=== PATIENT | female | born 1970 | race Caucasian/White ===

== ENCOUNTER 2017-04-29 22:33 | Emergency (ER) | payer OTHER, SELFPAY ==
[2017-04-29 22:43] VITALS: BP 134/81; PULSE 91; RESP 18; TEMP 36.4; O2SAT 98; BMI 33.3
--- NOTE | 2017-04-29 23:19 | CT_ITS ---
CT facial bones wo con CLINICAL INDICATION: Facial pain following injury, eye and nose pain on the left ITS.REASON: INJURY ORDERING PHYSICIAN: Charlie Watson MD PATIENT AGE: 47 years COMPARISON: None TECHNIQUE:Axial, sagittal, and coronal images are generated and reviewed without contrast COMPARISON: None FINDINGS: Bones: Unremarkable. No fracture, lytic, or blastic changes evident Extracranial soft tissues: Mild soft tissue swelling along the bridge of the nose Sinuses: Mild mucosal thickening ethmoid air cells Orbits: Unremarkable Other: No other pertinent findings IMPRESSION: No acute fracture Soft tissue swelling along the bridge of the nose
--- NOTE | 2017-04-29 23:19 | CT_ITS ---
CT head/brain wo con HISTORY: Headache, pain, head injury with contusion/abrasion ORDERING PHYSICIAN: Charlie Watson MD PATIENT AGE: 47 years COMPARISON: None TECHNIQUE: Axial images obtained without contrast. Brain and bone windows reviewed. FINDINGS: No midline shift, mass effect, intracranial hemorrhage, hydrocephalus, or extra-axial fluid collection is evident. The calvarium has an unremarkable appearance. No mastoid effusion. Mild mucosal thickening ethmoid sinuses.. IMPRESSION: No acute intracranial findings.
--- NOTE | 2017-04-29 23:19 | CT_ITS ---
CT CERVICAL SPINE WITHOUT CONTRAST CT RECONSTRUCTIONS HISTORY:Neck pain following injury ORDERING PHYSICIAN: Charlie Watson MD PATIENT AGE: 47 years PROCEDURE: Axial spiral CT scanning performed of the cervical spine beginning at the base of the skull and continuing to the upper T-spine. FINDINGS: No fracture nor subluxation is evident. Normal prevertebral soft tissues. Facets, neural foramen and vertebral bodies intact and unremarkable. Normal C1/C2 relationships. Apices of lungs are clear with no acute findings. Mild degenerative disc disease C6-C7. Faint groundglass and Reticulonodular densities noted in the upper lobes on both sides with small coalescent nodular densities in the left upper lobe 4 mm IMPRESSION:. 1. No acute fracture. 2. Faint groundglass and reticular nodular densities in the upper lobes which may be inflammatory or infectious. Dedicated chest CT may be of further value if clinically warranted
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
[2017-04-29 23:58] VITALS: BMI 33.3
== END 2017-04-30 00:06 | disposition home or self-care (01) ==
PROVIDERS: Emergency Provider Emergency Medicine; Family Provider Internal Medicine Adolescent Medicine; PCP Internal Medicine Adolescent Medicine
DX: S09.93XA Unspecified injury of face, initial encounter (principal); W22.8XXA Striking against or struck by other objects, initial encounter; F17.210 Nicotine dependence, cigarettes, uncomplicated; Z88.0 Allergy status to penicillin; Z88.6 Allergy status to analgesic agent
CPT/HCPCS: 70450; 70486; 72125; 99282

== ENCOUNTER → 2017-12-03 12:45 | Outpatient (CLI) | payer OTHER, SELFPAY ==
[2017-12-03 13:31] LABS: Basophils % 0.5 % (0.1-2.0); Eosinophils # 0.2 K/mm3 (0.0-0.4); Eosinophils % 2.7 % (0.1-12.0); Hematocrit 43.8 % (37.0-47.0); Hemoglobin 14.5 g/dL (12.2-16.2); Lymphocytes # 2.1 K/mm3 (0.7-4.5); Lymphocytes % 27.8 K/mm3 (10-50); Mean Corpuscular HGB Conc 33.1 g/dL (31.8-35.4); Mean Corpuscular Volume 90.5 fl (81-99); Mean Platelet Volume 7.9 fl (7.4-10.4); Monocytes # 0.5 K/mm3 (0.1-1.0); Monocytes % 6.5 % (1.7-9.3); Neutrophils # 4.6 K/mm3 (1.8-7.8); Neutrophils % 62.3 % (37.0-80.0); Platelet Count 326 K/mm3 (142-424); Red Blood Count 4.84 M/mm3 (4.20-5.40); Red Cell Distribution Width 12.8 % (11.5-17.5); White Blood Count 7.4 K/mm3 (4.8-10.8)
[2017-12-03 14:28] LABS: Alanine Aminotransferase 54 U/L (12-78); Albumin/Globulin Ratio 1.1 (1.1-1.8); Alkaline Phosphatase 84 U/L (46-116); Anion Gap 13.4 mEq/L (5-15); Aspartate Amino Transferase 27 U/L (15-37); Bilirubin,Total 0.3 mg/dL (0.2-1.0); Blood Urea Nitrogen 11 mg/dL (7-18); Calcium 9.2 mg/dL (8.5-10.1); Carbon Dioxide 29 mmol/L (21.0-32.0); Chloride 104 mmol/L (98-107); Estimated Glomerular Filt Rate 76 ml/min (>60); GFR (African American) 92 ML/MIN (>60); Globulin 3.6 gm/dl (1.3-3.2); Glucose 94 mg/dL (74-106); Potassium 4.4 mmoL/L (3.5-5.1); Sodium 142 mmol/L (136-145); Thyroid Stimulating Hormone 2.26 uIU/ml (0.358-3.740); Total Protein,Serum 7.6 gm/dL (6.4-8.2); Uric Acid 3.5 mg/dL (2.6-7.2)
[2017-12-03 15:17] LABS: Erythrocyte Sedimentation Rate 27 mm/hr (0-20)
[2017-12-06 05:30] LABS: RA Latex Turbid. 16.6 IU/mL (0.0-13.9)
[2017-12-06 15:22] LABS: Anti-Jo-1 <0.2 AI (0.0-0.9); Anti-Smith Antibody <0.2 AI (0.0-0.9); Antichromatin Antibodies <0.2 AI (0.0-0.9); Antiscleroderma-70 Antibodies <0.2 AI (0.0-0.9); RNP Antibodies <0.2 AI (0.0-0.9); Sjogren's Anti-SS-A <0.2 AI (0.0-0.9); Sjogren's Anti-SS-B <0.2 AI (0.0-0.9)
[2017-12-07 16:03] LABS: Anti-Centromere B Antibodies <0.2 AI (0.0-0.9); Anti-Cyclic Citrullinated Pept 13 units (0-19); Anti-DNA (DS) Ab Qn <1 IU/mL (0-9)
== END ==
PROVIDERS: Visit Provider Nurse Practitioner Family
DX: M25.542 Pain in joints of left hand (principal); M25.541 Pain in joints of right hand
CPT/HCPCS: 36415; 80053; 84443; 84550; 85025; 85651; 86200; 86225; 86235; 86431

== ENCOUNTER 2019-06-14 23:42 | Observation (INO) ==
[2019-06-14 23:57] LABS: Basophils # 0.1 K/mm3 (0-0.2); Basophils % 0.7 % (0.1-2.0); Eosinophils # 0.1 K/mm3 (0.0-0.4); Eosinophils % 1.9 % (0.1-12.0); Hematocrit 43.7 % (37.0-47.0); Lymphocytes # 2.8 K/mm3 (0.7-4.5); Lymphocytes % 37.1 % (10-50); Mean Corpuscular Volume 94.7 fl (81-99); Mean Platelet Volume 7.9 fl (7.4-10.4); Monocytes # 0.3 K/mm3 (0.1-1.0); Monocytes % 4.4 % (1.7-9.3); Neutrophils # 4.2 K/mm3 (1.8-7.8); Neutrophils % 55.9 % (37.0-80.0); Platelet Count 323 K/mm3 (142-424); Red Blood Count 4.62 M/mm3 (4.20-5.40); Red Cell Distribution Width 13.5 % (11.5-17.5); White Blood Count 7.6 K/mm3 (4.8-10.8)
[2019-06-15 00:04] LABS: Anion Gap 11.5 mEq/L (5-15); Calcium 9.7 mg/dl (8.4-10.2)
--- NOTE | 2019-06-15 00:37 | Emergency Department Note ---
ED Disposition Clinical Impression: Obesity (BMI 30-39.9), Tobacco use Chest pain Qualifiers: Chest pain type: precordial pain Qualified Code(s): R07.2 - Precordial pain Disposition: Admitted as Observation Condition on Discharge: Good - Critical Care Critical Care Time: No Attestation: On 06/14/19, the high probability of a clinically significant, sudden or life threatening deterioration of the following system(s) required my full and direct attention, intervention and personal management. The time I documented below is in addition to time spent performing reported procedures but includes the following listed in this critical care notation. Medical Decision Making - Medical Records Medical records reviewed: Yes: I reviewed the patient's medical records. - Erik Inquiry Pt receiving controlled substance: No Vital Signs: 06/14/19 23:42 Temperature 98.6 F Temperature Source Oral Pulse Rate [Left Radial] 96 H Respiratory Rate 16 Blood Pressure [Right Arm] 148/90 H Blood Pressure Mean [Right Arm] 109 Blood Pressure Source [Right Arm] Automatic Cuff Blood Pressure Position [Right Arm] Sitting 02 Sat by Pulse Oximetry 98 Oxygen Delivery Method Room Air - Lab Data Lab results reviewed: Yes: I reviewed the patient's lab results. Lab Results 06/14/19 23:35: WBC 7.6, RBC 4.62, Hgb 14.0, Hct 43.7, MCV 94.7, MCH 30.3, MCHC 32.0, RDW 13.5, Plt Count 323, MPV 7.9, Neut % (Auto) 55.9, Lymph % (Auto) 37.1, Sab[place] % (Auto) 4.4, Eos % (Auto) 1.9, Baso % (Auto) 0.7, Neut # (Auto) 4.2, Lymph # (Auto) 2.8, Sab[place] # (Auto) 0.3, Eos # (Auto) 0.1, Baso # (Auto) 0.1 06/14/19 23:35: Sodium 143, Potassium 3.5, Chloride 103, Carbon Dioxide 32 H, Anion Gap 11.5, BUN 10, Creatinine 0.80, Estimated Creat Clear 113, Estimated GFR 76, Est GFR ( Amer) 92, Glucose 99, Calcium 9.7 06/14/19 23:35: Troponin I < 0.01 Result diagrams: 06/14/19 23:35 06/14/19 23:35 Orders (Tests/Meds): ED MEDICATIONS Generic Name Dose Route Start Last Admin Trade Name Freq PRN Reason Stop Dose Admin Sodium Chloride 1,000 mls @ 999 mls/hr 06/14/19 23:45 06/15/19 00:11 Sod Chlor 0.9% 1000ml Bag IV 06/15/19 00:45 999 mls/hr .Q1H1M ELIZABETH Administration Discontinued Medications Generic Name Dose Route Start Last Admin Trade Name Freq PRN Reason Stop Dose Admin Aspirin 324 mg 06/14/19 23:51 06/15/19 00:11 Aspirin 81mg Chewable Tablet PO 06/14/19 23:52 324 mg ONCE ONE Administration Nitroglycerin 1 gm 06/14/19 23:51 06/15/19 00:11 Nitroglycerin 1 Inch Oint Udp TD 06/14/19 23:52 1 gm ONCE ONE Administration ORDERS Category Date Time Status XR chest 2V Stat Exams 06/14/19 23:51 Ordered - Radiology Data #1 Image(s): Chest Image Reviewed: Yes I reviewed the patient's radiology image Preliminary Findings: Normal/NAD - ECG Data Tracing #1 Normal Sinus Rhythm: Yes Ischemic changes: non-specific ST-T wave changes Chest Pain HPI - General Chief Complaint: Chest Pain Stated Complaint: chest pain Time Seen by Provider: 06/14/19 23:50 Mode of Arrival: Ambulatory Source of Information: Patient, Significant Other, Medical Record Limitations: No Limitations Description of Symptoms (Recalled from ER Triage Doc. by RN): pt stated she started having palpitations at work today around 10pm. pt stated she feels a pressure and tightness in her epigastric area rating a 5 at this time. - History of Present Illness HPI narrative: 30 min episode of ant chest tightness - new onset - has had feeling of palpitation earlier - pt with no known ht dis MD complaint: chest pain indicative of cardiac Onset (ago): hour(s) Duration: now resolved Activity at onset: during rest Pain location: substernal Severity: moderate Quality: tightness Risk Factors for CAD: Hypertension, Family Hx of CAD, Smoking Treatments prior to or on arrival for Cardiac Chest Pain: none - NICOLÁS Score for Non-Stemi Age of Patient: 50-59 years old Heart Rate: 90-109 bpm Systolic Blood Pressure: 140-159 mmHg Serum Creatinine: 0.80-1.19 mg/dl CHF [place] Class: I-No CHF Other Risk Factors: None Non-Stemi Risk Score: 87 - Related Data On Oral Contraceptives: No Home Medications Medication Instructions Recorded Confirmed Omeprazole [Omeprazole 40mg 40 mg PO DAILY 04/29/17 06/30/18 Capsule] hydroxychloroquine 200 mg tablet 200 mg PO BID tab 06/30/18 prednisone 5 mg tablet 5 mg PO DAILY 06/30/18 Allergies Allergy/AdvReac Type Severity Reaction Status Date / Time morphine [MORPHINE] Allergy Severe S-SWELLS-OR Verified 06/30/18 17:51 AL/THROAT Penicillins [PENICILLINS] Allergy Intermediate I-RASH Verified 06/30/18 17:51 [facility] History - Hepatitis A Screen Drug use history?: No High risk sexual behaviors?: No History of sexually transmitted infection?: No Currently employed?: No Childcare worker?: No Do you have indoor plumbing?: Yes Do you have electricity?: Yes Attestation statement:: This patient has been screened for Hepatitis A risk factors. I have reviewed the patient's past medical history: Yes Medical History: Reports:: Anxiety Other Surgeries: Yes: Hysterectomy-Partial Amputation: No Fractures: No Comment: rotator cuff tear 2010 - Social History Smoking Status: Current every day smoker Tobacco Type: cigarettes # Packs/Day (cigarettes): 1 Alcohol Intake: never Occupational Status: employed - Psychiatric History Pschychiatric History:: Reports:: Anxiety Family Hx:: Cancer Comment: COPD ROS Obtained: Yes All systems reviewed & no additional complaints - Constitutional Constitutional: Denies fever(s) - Eyes Eyes: Denies change in vision - ENT Ears, Nose, Mouth, and Throat: Denies sore throat - Cardiovascular Cardiovascular: Reports chest pain, Denies dyspnea, Denies radiating jaw, neck or arm pain - Respiratory Respiratory: No cough - Gastrointestinal Gastrointestingal: Denies: abdominal pain - Genitourinary Female Genitourinary: Denies hematuria - Musculoskeletal Musculoskeletal: Denies joint pain, Denies joint swelling - Integumentary/Breasts Skin/Breast: Denies rash - Neurologic Neurologic: Denies dizziness, Denies seizure-like activity Physical Exam - General General appearance: alert - Head Head exam: normocephalic - Eye Eye exam: Present: PERRL, EOMI - ENT ENT exam: Present: mucous membranes moist - Neck Neck exam: Present: trachea midline - Respiratory Respiratory exam: Present: normal lung sounds bilaterally. Absent: respiratory distress - Cardiovascular Cardiovascular exam: Present: regular rate. Absent: systolic murmur - Abdominal Exam Abdominal exam: Present: soft. Absent: tenderness - Extremities Exam Extremities exam: Present: full ROM - Neurological Exam Neurological exam: Present: alert, oriented X3, CN II-XII intact - Psychiatric Psychiatric exam: Present: normal affect - Skin Skin exam: Absent: rash
[2019-06-15 06:46] LABS: Basophils % 0.5 % (0.1-2.0); Eosinophils # 0.2 K/mm3 (0.0-0.4); Eosinophils % 2.6 % (0.1-12.0); Hematocrit 38.8 % (37.0-47.0); Hemoglobin 12.6 g/dL (12.2-16.2); Lymphocytes # 2.5 K/mm3 (0.7-4.5); Lymphocytes % 36.9 % (10-50); Mean Corpuscular HGB Conc 32.5 g/dL (31.8-35.4); Mean Corpuscular Volume 95.8 fl (81-99); Mean Platelet Volume 8.1 fl (7.4-10.4); Monocytes # 0.4 K/mm3 (0.1-1.0); Monocytes % 5.6 % (1.7-9.3); Neutrophils # 3.6 K/mm3 (1.8-7.8); Neutrophils % 54.3 % (37.0-80.0); Platelet Count 298 K/mm3 (142-424); Red Blood Count 4.05 M/mm3 (4.20-5.40); Red Cell Distribution Width 13.5 % (11.5-17.5); White Blood Count 6.7 K/mm3 (4.8-10.8)
[2019-06-15 06:50] LABS: Anion Gap 9.8 mEq/L (5-15); Calcium 8.9 mg/dl (8.4-10.2)
[2019-06-15 06:51] LABS: Chol/HDL Ratio 3.6 (1-3.5)
--- NOTE | 2019-06-15 07:14 | Pharmacy Consult Notes ---
[facility] Pharmacy VTE Monitoring - Patient Demographics Admission date: 06/15/19 Report Date: 06/15/19 Time: 07:13 Allergies/Adverse Reactions: Patient Allergies morphine [MORPHINE] Allergy (Severe, Verified 06/15/19 02:03) orbital edema Penicillins [PENICILLINS] Allergy (Intermediate, Verified 06/30/18 17:51) I-RASH Height: 1.5 m Weight: 85.502 kg Patient Problems: Current Active Problems Chest pain (Acute) Obesity (BMI 30-39.9) (Acute) Tobacco use (Acute) - VTE Risk Labs: VTE Related Lab Results Hgb 12.6 g/dL (12.2-16.2) 06/15/19 06:25 Hct 38.8 % (37.0-47.0) 06/15/19 06:25 Plt Count 298 K/mm3 (142-424) 06/15/19 06:25 BUN 11 mg/dl (7-17) 06/15/19 06:25 Creatinine 0.70 mg/dl (0.52-1.04) 06/15/19 06:25 Estimated Creat Clear 128 mL/min (50-200) 06/15/19 06:25 Was VTE Risk Assessment Performed: Yes VTE Score: 6 VTE Risk Level: Moderate Risk - Prophylaxis VTE Prophylaxis Ordered?: Yes Types of VTE Prophylaxis: TEDS Knee High Location of Applied Device: Bilateral Lower Extremeties
--- NOTE | 2019-06-15 07:44 | Consult Report ---
History of Present Illness Consult date: 06/15/19 Consult reason: chest pain Chief complaint: chest pain, palpitations Additional Medical History:: 1. History of rheumatoid arthritis, treated for about 2 years with methotrexate 2. Tobacco use since age 15 and 1 pack/day 3. Chest pain, palpitations, 05/2019 History of present illness: 49-year-old white female with onset of substernal to epigastric chest discomfort with associated palpitations while at work last evening. Symptoms persisted to the point that the patient came to the ER for further evaluation. She denies any recent fever, chills, nausea, vomiting or diarrhea. No prior history of coronary artery disease. She is a smoker but is not on medication for diabetes, hypertension or hyperlipidemia. EKG in the ER showed sinus rhythm with no acute ST segment changes. Troponins overnight have been normal x3. Preliminary echocardiogram this morning shows preserved ejection fraction. Patient has a history of rheumatoid arthritis that has been treated for about 2 years. She also has a history of bright red blood per rectum for which she takes omeprazole for GI discomfort with prior colonoscopy negative. Last episode of bright red blood per rectum was in the last week. [facility] History Medical History: Reports:: Anxiety, Cancer (Skin) Denies:: Diabetes Mellitus Type 1, Diabetes Mellitus Type 2 *Have you ever received a pneumonia vaccine?: No *Have you received a flu vaccine this season?: No Other Medical History: Reports: Arthritis Other Surgeries: Yes: Cholecystectomy, Colonoscopy, (x1), EGD, Hysterectomy-Partial, Skin Cancer Excision (x2), Other (Right rotator cuff repair) Amputation: No Fractures: No - *Social History Educational Level: Completed High School Smoking Status: Current every day smoker Tobacco Type: cigarettes # Packs/Day (cigarettes): 1 Alcohol Intake: never *Occupational Status:: employed Housing: house Household Members: children *Travel in the last 8 weeks: None - Psychiatric History Pschychiatric History:: Reports:: Anxiety Family Hx:: Asthma, Cancer, Diabetes, Hypertension, Substance abuse Meds Home Medications Medication Instructions Recorded Confirmed Type Omeprazole [Omeprazole 40mg 40 mg PO DAILY 04/29/17 06/15/19 History Capsule] ALPRAZolam [Xanax 0.5mg tab] 0.5 mg PO DAILYP PRN 06/15/19 06/15/19 History Folic Acid 1 mg PO DAILY 06/15/19 06/15/19 History metHOTREXate sodium [metHOTREXate 20 mg PO WEEKLY 06/15/19 06/15/19 History 2.5mg Tablet] Allergies Allergy/AdvReac Type Severity Reaction Status Date / Time morphine [MORPHINE] Allergy Severe orbital Verified 06/15/19 02:03 edema Penicillins [PENICILLINS] Allergy Intermediate I-RASH Verified 06/30/18 17:51 Review of Systems - Review of Systems Review of systems:: pertinent systems reviewed and negative unless documented below - *Cardiovascular Reports chest pain, Reports rapid, pounding, or irregular heartbeat - *Respiratory Denies cough, Denies shortness of breath - *Gastrointestinal Reports abdominal pain, Denies nausea, Denies vomiting - *Genitourinary Denies blood in urine - *Musculoskeletal Reports joint pain, Denies back pain - *Neurologic Denies dizziness, Denies seizure-like activity Exam Vital signs and Labs for Last 24 Hours: Temp Pulse Resp BP Pulse Ox 97.9 F 92 H 18 94/56 L 97 06/15/19 04:00 06/15/19 04:00 06/15/19 04:00 06/15/19 04:00 06/15/19 04:00 Laboratory Results - last 24 hr 06/14/19 23:35: WBC 7.6, RBC 4.62, Hgb 14.0, Hct 43.7, MCV 94.7, MCH 30.3, MCHC 32.0, RDW 13.5, Plt Count 323, MPV 7.9, Neut % (Auto) 55.9, Lymph % (Auto) 37.1, [place]ccone % (Auto) 4.4, Eos % (Auto) 1.9, Baso % (Auto) 0.7, Neut # (Auto) 4.2, Lymph # (Auto) 2.8, [place]one # (Auto) 0.3, Eos # (Auto) 0.1, Baso # (Auto) 0.1 06/14/19 23:35: Sodium 143, Potassium 3.5, Chloride 103, Carbon Dioxide 32 H, Anion Gap 11.5, BUN 10, Creatinine 0.80, Estimated Creat Clear 113, Estimated GF R 76, Est GFR ( Amer) 92, Glucose 99, Calcium 9.7 06/14/19 23:35: Troponin I < 0.01 06/15/19 03:15: Troponin I < 0.01 06/15/19 06:25: Troponin I < 0.01 06/15/19 06:25: WBC 6.7, RBC 4.05 L, Hgb 12.6, Hct 38.8, MCV 95.8, MCH 31.1, MCHC 32.5, RDW 13.5, Plt Count 298, MPV 8.1, Neut % (Auto) 54.3, Lymph % (Auto) 36.9, Mccone % (Auto) 5.6, Eos % (Auto) 2.6, Baso % (Auto) 0.5, Neut # (Auto) 3.6, Lymph # (Auto) 2.5, [place]one # (Auto) 0.4, Eos # (Auto) 0.2, Baso # (Auto) 0.0 06/15/19 06:25: Sodium 141, Potassium 3.8, Chloride 106, Carbon Dioxide 29, Anion Gap 9.8, BUN 11, Creatinine 0.70, Estimated Creat Clear 128, Estimated GFR 88, Est GFR ( Amer) 107, Glucose 104 H, Calcium 8.9, Magnesium 2.0, Triglycerides 104, Cholesterol 126 L, LDL Cholesterol Direct 83.59 L, VLDL Cholesterol 21, HDL Cholesterol 35 L, Cholesterol/HDL Ratio 3.6 H I & O for Last 24 hours: Intake & Output 06/12/19 06/13/19 06/14/19 06/15/19 11:59 11:59 11:59 11:59 Output Total 400 / 400 Balance -400 / -400 Weight 188 lb 8 oz - *Routine Neck Exam Present: supple. Absent: JVD, carotid bruit - *Routine Respiratory Exam Present: CTA bilaterally. Absent: accessory muscle use, rales, rhonchi, wheezes - *Routine Cardiovascular Exam Present: RRR. Absent: murmur, gallop, rubs - *Routine Abdominal Exam Present: soft. Absent: tenderness, distended, guarding - *Routine Extremities Exam Absent: edema, calf tenderness - *Routine Neurological Exam Present: alert, oriented X3, moving all extremities Assessment and Plan (1) Chest pain Current visit: Yes Status: Acute Qualifiers: Chest pain type: precordial pain Qualified Code(s): R07.2 - Precordial pain Category: Medical Code(s): R07.9 - Chest pain, unspecified (2) Tobacco use Current visit: Yes Status: Acute Category: Social Hx Code(s): Z72.0 - Tobacco use - Assessment and plan all Dx Assessment and Plan for all problems:: 1. Chest pain with palpitations. Normal EKG and troponins x3 with preliminary echocardiogram showed preserved ejection fraction. Recommend proceeding with exercise echocardiogram study. If normal then patient can be discharged home later today. 2. History of Abdominal pain with BRBPR. Plans to have colonoscopy in near future. 3. Rheumatoid Arthritis, on methotrexate 4. Tobacco use, cessation recommended.
--- NOTE | 2019-06-15 08:06 | H&P/Discharge Summary ---
General - General Admission date:: 06/15/19 Discharge date: 06/15/19 *Admission Date: 06/15/19 *Chief complaint: Chest pain, palpitations *History of present illness: Ms. Moreno is a pleasant, obese 49-year-old white female who presented to the ER yesterday due to substernal/epigastric chest discomfort with associated palpitations while at work last evening. He states the symptoms began while she was on her way to work, she waited in her car for about 30 minutes and persisted to have fluttering sensation versus palpitations and significant lower substernal pain. This morning she denies any syncope, nausea, vomiting, referred pain to arm or neck. No history of hypertension. Is on medication for RA (methotrexate). Also takes omeprazole daily for reflux symptoms. Has not had symptoms in quite some time is unsure if these symptoms are similar to her past GERD symptoms. She denies any recent fever, chills, nausea, vomiting or diarrhea. No prior history of coronary artery disease. She is a smoker but is not on medication for diabetes, hypertension or hyperlipidemia. EKG in the ER showed sinus rhythm with no acute ST segment changes. Troponins overnight have been normal x3. Preliminary echocardiogram this morning shows preserved ejection fraction. Patient has a history of rheumatoid arthritis that has been treated for about 2 years. She also has a history of bright red blood per rectum for which she takes omeprazole for GI discomfort with prior colonoscopy negative. Last episode of bright red blood per rectum was in the last week. She was admitted to medicine for further management. Cardiology was consulted, please see their note for recommendations. [facility] History I have reviewed the patient's past medical history: Yes Medical History: Reports:: Anxiety, Cancer (Skin) Denies:: Diabetes Mellitus Type 1, Diabetes Mellitus Type 2 *Have you ever received a pneumonia vaccine?: No *Have you received a flu vaccine this season?: No Other Medical History: Reports: Arthritis Other Surgeries: Yes: Cholecystectomy, Colonoscopy, (x1), EGD, Hysterectomy-Partial, Skin Cancer Excision (x2), Other (Right rotator cuff repair) Amputation: No Fractures: No - *Social History Educational Level: Completed High School Smoking Status: Current every day smoker Tobacco Type: cigarettes # Packs/Day (cigarettes): 1 Alcohol Intake: never *Occupational Status:: employed Housing: house Household Members: children *Travel in the last 8 weeks: None - Psychiatric History Pschychiatric History:: Reports:: Anxiety Family Hx:: Asthma, Cancer, Diabetes, Hypertension, Substance abuse Review of Systems - Review of Systems Review of systems:: pertinent systems reviewed and negative unless documented below (14 point review of systems performed, pertinent negatives and positives per HPI) - *Neurologic Denies dizziness, Denies seizure-like activity Exam Vital signs and Labs for Last 24 Hours: Temp Pulse Resp BP Pulse Ox 97.9 F 92 H 18 94/56 L 97 06/15/19 04:00 06/15/19 04:00 06/15/19 04:00 06/15/19 04:00 06/15/19 04:00 Laboratory Results - last 24 hr 06/14/19 23:35: WBC 7.6, RBC 4.62, Hgb 14.0, Hct 43.7, MCV 94.7, MCH 30.3, MCHC 32.0, RDW 13.5, Plt Count 323, MPV 7.9, Neut % (Auto) 55.9, Lymph % (Auto) 37.1, Wallace % (Auto) 4.4, Eos % (Auto) 1.9, Baso % (Auto) 0.7, Neut # (Auto) 4.2, Lymph # (Auto) 2.8, Wallace # (Auto) 0.3, Eos # (Auto) 0.1, Baso # (Auto) 0.1 06/14/19 23:35: Sodium 143, Potassium 3.5, Chloride 103, Carbon Dioxide 32 H, Anion Gap 11.5, BUN 10, Creatinine 0.80, Estimated Creat Clear 113, Estimated GFR 76, Est GFR ( Amer) 92, Glucose 99, Calcium 9.7 06/14/19 23:35: Troponin I < 0.01 06/15/19 03:15: Troponin I < 0.01 06/15/19 06:25: Troponin I < 0.01 06/15/19 06:25: WBC 6.7, RBC 4.05 L, Hgb 12.6, Hct 38.8, MCV 95.8, MCH 31.1, MCHC 32.5, RDW 13.5, Plt Count 298, MPV 8.1, Neut % (Auto) 54.3, Lymph % (Auto) 36.9, Wallace % (Auto) 5.6, Eos % (Auto) 2.6, Baso % (Auto) 0.5, Neut # (Auto) 3.6, Lymph # (Auto) 2.5, Wallace # (Auto) 0.4, Eos # (Auto) 0.2, Baso # (Auto) 0.0 06/15/19 06:25: Sodium 141, Potassium 3.8, Chloride 106, Carbon Dioxide 29, Anion Gap 9.8, BUN 11, Creatinine 0.70, Estimated Creat Clear 128, Estimated GFR 88, Est GFR ( Amer) 107, Glucose 104 H, Calcium 8.9, Magnesium 2.0, Triglycerides 104, Cholesterol 126 L, LDL Cholesterol Direct 83.59 L, VLDL Cholesterol 21, HDL Cholesterol 35 L, Cholesterol/HDL Ratio 3.6 H I & O for Last 24 hours: Intake & Output 06/12/19 06/13/19 06/14/19 06/15/19 23:59 23:59 23:59 23:59 Output Total 400 / 400 Balance -400 / -400 Weight 86.183 kg 85.502 kg - Constitutional no acute distress, obese - *Routine HEENT Exam Head: Present: normocephalic Eye: Present: EOMI, PERRL ENT: Present: mucous membranes moist - *Routine Neck Exam Present: supple. Absent: lymphadenopathy - *Routine Respiratory Exam Present: CTA bilaterally - *Routine Cardiovascular Exam Present: RRR - *Routine Abdominal Exam Present: soft, normoactive bowel sounds. Absent: tenderness - *Routine Extremities Exam Absent: cyanosis, clubbing, edema - *Routine Skin Exam Present: warm. Absent: rash - *Routine Neurological Exam Present: alert, oriented X3 Hospital Course Hospital Course: Admitted overnight with serial troponins. EKG with no ST elevation or inversions. Monitored on telemetry with no further events. On assessment this morning patient is feeling quite well with resolution of her discomfort. Vincent blanca saw her and recommended a stress test however given her rheumatoid arthritis, she is unable to perform a exercise stress test. Needs to have a chemical stress test which will have to take place in the outpatient setting. She has remained hemodynamically stable, afebrile, with improvement in her symptoms and no cardiac events, she is medically stable for discharge home. We will increase her GI prophylactic regimen with the addition of sucralfate. I have concern that her symptoms may be related to gastritis. We will set her up for an EGD and colonoscopy in the outpatient setting. Plan for close follow-up in our clinic. Results Labs on day of discharge: Labs from last 24 hours 06/15/19 06/15/19 06/15/19 06:25 06:25 06:25 WBC 6.7 RBC 4.05 L Hgb 12.6 Hct 38.8 MCV 95.8 MCH 31.1 MCHC 32.5 RDW 13.5 Plt Count 298 MPV 8.1 Neut % (Auto) 54.3 Lymph % (Auto) 36.9 Wallace % (Auto) 5.6 Eos % (Auto) 2.6 Baso % (Auto) 0.5 Neut # (Auto) 3.6 Lymph # (Auto) 2.5 Wallace # (Auto) 0.4 Eos # (Auto) 0.2 Baso # (Auto) 0.0 Sodium 141 Potassium 3.8 Chloride 106 Carbon Dioxide 29 Anion Gap 9.8 BUN 11 Creatinine 0.70 Estimated Creat Clear 128 Estimated GFR 88 Est GFR ( Amer) 107 Glucose 104 H Calcium 8.9 Magnesium 2.0 Troponin I < 0.01 Triglycerides 104 Cholesterol 126 L LDL Cholesterol Direct 83.59 L VLDL Cholesterol 21 HDL Cholesterol 35 L Cholesterol/HDL Ratio 3.6 H 06/15/19 06/14/19 06/14/19 03:15 23:35 23:35 WBC RBC Hgb Hct MCV MCH MCHC RDW Plt Count MPV Neut % (Auto) Lymph % (Auto) Wallace % (Auto) Eos % (Auto) Baso % (Auto) Neut # (Auto) Lymph # (Auto) Wallace # (Auto) Eos # (Auto) Baso # (Auto) Sodium 143 Potassium 3.5 Chloride 103 Carbon Dioxide 32 H Anion Gap 11.5 BUN 10 Creatinine 0.80 Estimated Creat Clear 113 Estimated GFR 76 Est GFR ( Amer) 92 Glucose 99 Calcium 9.7 Magnesium Troponin I < 0.01 < 0.01 Triglycerides Cholesterol LDL Cholesterol Direct VLDL Cholesterol HDL Cholesterol Cholesterol/HDL Ratio 06/14/19 23:35 WBC 7.6 RBC 4.62 Hgb 14.0 Hct 43.7 MCV 94.7 MCH 30.3 MCHC 32.0 RDW 13.5 Plt Count 323 MPV 7.9 Neut % (Auto) 55.9 Lymph % (Auto) 37.1 Wallace % (Auto) 4.4 Eos % (Auto) 1.9 Baso % (Auto) 0.7 Neut # (Auto) 4.2 Lymph # (Auto) 2.8 Wallace # (Auto) 0.3 Eos # (Auto) 0.1 Baso # (Auto) 0.1 Sodium Potassium Chloride Carbon Dioxide Anion Gap BUN Creatinine Estimated Creat Clear Estimated GFR Est GFR ( Amer) Glucose Calcium Magnesium Troponin I Triglycerides Cholesterol LDL Cholesterol Direct VLDL Cholesterol HDL Cholesterol Cholesterol/HDL Ratio DS: Diagnosis - Discharge Diagnosis (1) Chest pain Status: Acute (2) Tobacco use Status: Acute (3) GERD (gastroesophageal reflux disease) Status: Chronic (4) Obesity (BMI 30-39.9) Status: Chronic Discharge Plan - Patient Discharge Instructions Patient Instructions: DI for Chest Pain - Follow up Plan Follow up with: Brice Martinez MD [Primary Care Provider] - Disposition: Home, Self-Long-Term Medications: Home Medications Medication Instructions Recorded Confirmed Type Omeprazole [Omeprazole 40mg 40 mg PO DAILY 04/29/17 06/15/19 History Capsule] ALPRAZolam [Xanax 0.5mg tab] 0.5 mg PO DAILYP PRN 06/15/19 06/15/19 History Folic Acid 1 mg PO DAILY 06/15/19 06/15/19 History Sucralfate [Carafate 1gm Tab] 1 gm PO ACHS 30 Days #120 tab 06/15/19 Rx metHOTREXate sodium [metHOTREXate 20 mg PO WEEKLY 06/15/19 06/15/19 History 2.5mg Tablet] Prescriptions/Medication Reconciliation: New Sucralfate [Carafate 1gm Tab] 1 gm PO ACHS 30 Days #120 tab Continued Omeprazole [Omeprazole 40mg Capsule] 40 mg PO DAILY metHOTREXate sodium [metHOTREXate 2.5mg Tablet] 20 mg PO WEEKLY Folic Acid 1 mg PO DAILY ALPRAZolam [Xanax 0.5mg tab] 0.5 mg PO DAILYP PRN PRN Reason: Anxiety - Problem Reconciliation Problems Reviewed?: Yes
--- NOTE | 2019-06-15 13:27 | Electrocardiograph Report ---
APPROVED REPORT Exam: Resting ECG HR:90 bpm ECG Measurements Heart Rate 90 AXES SC 120 P 69 QRSd 82 QRS 41 QT 352 T35 QTc 430 <Conclusion> Normal sinus rhythm Normal ECG Electronically signed by : Constantin Martinez, 06/15/2019 13:27:15
--- NOTE | 2019-06-15 16:31 | Cardiology Report ---
APPROVED REPORT EXAM: Comprehensive 2D, Doppler, and color-flow Echocardiogram Farmworker Dairy: Erica Beltre CRT Ht: 4 ft 11 in Wt: 190lbs BSA: 1.80 BP: 140/90 mmHg Indications: Chest Pain, Obesity, Palpitations, Hypertension/HDD, smoker 2D Dimensions LVOT 1.93 cm (M/F) 1.5-2.5 M-Mode Dimensions RVDd 1.81 cm (0.9-2.6)LVDd 3.62 cm (3.5-5.7) LVDs 2.15 cm (3.5-5.7)IVSd 1.44 cm (0.6-1.1) PWd 1.31 cm (0.6-1.1)EF (Teich) 72.30% FS 40.60% EDV (Teich) 55.20 mL ESV (Teich) 15.30 mL LV Diastology E/A Ratio 0.81 Mitral Valve MV A Velocity 72.00 (40-130 cm/s) Left Ventricle Left atrium is mildly enlarged, left ventricle is normal size, mild concentric left ventricular hypertrophy, visually estimated ejection fraction 55% with no regional wall motion abnormality, grade 1 diastolic dysfunction seen without tissue Doppler evidence of raise left atrial pressure. Right Ventricle Right atrium and right ventricular normal size and contractility. Aortic Valve Aortic valve is minimally thickened and fibrosed, there is no aortic stenosis aortic insufficiency. Mitral Valve Mitral valve is grossly normal, there is no mitral stenosis, there is mild mitral regurgitation. Tricuspid Valve Tricuspid valve is grossly normal, there is mild tricuspid regurgitation. Tricuspid regurgitation jet velocity is inadequate for calculation of the right ventricular systolic pressure. Pulmonic Valve Pulmonic valve is poorly visualized. Great Vessels Aortic root is normal size. Pericardium No significant pericardial effusion noted Conclusion 1. Mildly enlarged left atrium, normal left ventricular size, mild concentric left ventricular hypertrophy, visually estimated ejection fraction 55% with no regional wall motion abnormality, grade 1 diastolic dysfunction without tissue Doppler evidence of raise left atrial pressure. 2. Mild mitral and tricuspid regurgitation. 3. No significant pericardial effusion noted. Electronically signed by : Hayder Weems, 06/15/2019 16:09:23
== END 2019-06-15 12:10 | disposition home or self-care (01) ==
LOC: 2ND 23:42 → ER 23:42 → 2ND 06-15 01:39
PROVIDERS: ADMIT Emergency Medicine; ATTEND Internal Medicine Adolescent Medicine
CPT/HCPCS: 36415; 71020; 71046; 80048; 80061; 83735; 84484; 85025; 93005; 93306; 93350; 96365; 99284; G0378

== ENCOUNTER → 2019-07-07 06:52 | Outpatient (CLI) | payer BC, SELFPAY ==
--- NOTE | 2019-07-07 | CA_ITS ---
APPROVED REPORT Exam: Exercise Treadmill Technologist: Rama Chambers, Ht: 4 ft 11 in Wt: 187 lbs BSA: 1.79 m2 HR: 73 bpm BP: 142/71 mmHg Indications: Chest pain Medical History Medical History: HTN Cardiac Risk Factors: HTN, Smoking Stress Test Details Test: LEXISCAN HR Resting HR: 84 bpm Max Heart Rate (APMHR): 169 bpm Max HR Achieved: 131 bpm Target HR (85% APMHR): 143 bpm % of APMHR: 77 BP Resting BP: 142/71 mmHg Max BP: 149/64 mmHg ECG Clinical Exercise duration: 04:00 min Highest Stage Achieved: Exercise capacity: 1.0 METs Stress ECG Conclusion PT c/o shortness of breath @ pk infusion , no CP noted / occ PVC / Less than 1.5mm ST Dep. / Images to follow Test Summary REST . . . . . . . Resting REST 06:03 . . 84 . 142/ 71 . . Stage 1 01:00 . . 126 . . . . Stage 2 01:00 . . 126 . 137/ 80 . . Stage 3 01:00 . . 120 . 132/ 72 . . Stage 4 01:00 . . 112 . 149/ 64 . Stop exercise at 04:00 RECOVERY 01:00 . . 109 . . . . RECOVERY 02:00 . . 110 . 132/ 70 . . RECOVERY 03:00 . . 106 . 132/ 70 . . RECOVERY 03:58 . . 106 . 132/ 70 . . Electronically signed by : Cassius Jefferson, 07/10/2019 09:39:01
--- NOTE | 2019-07-07 06:53 | NM_ITS ---
APPROVED REPORT Exam: Nuclear Stress Test Indication: TOB USE, C.P., SOB, PALPITATIONS, Patient Location: Outpatient Stress Tech: Rama Chambers PR Tech:Jordyn ElderLOS RT (R)(N)(M) Ht: 4 ft 11 in Wt: 187 lbs Bra Size: 42DD HR: 63 bpm BP: 121/70 mmHg BSA: 1.79 m2 BMI: 37.7 History: TOB USE, C.P., SOB, PALPITATIONS, Procedure: Patient received a 0.4 mg of intravenous Lexiscan, resting heart rate 63 bpm, resting blood pressure 121/70 mmHg, with Lexiscan maximum heart rate achived was 134 bpm which is % of the maximum predicted heart rate and blood pressure was 160/80 mmHg. With Lexiscan, patient denied any complaint of chest pain. Cardiac Stress and Resting SPECT Images: Cardiac Stress and Resting SPECT images were obtained using technetium 99m Myoview 29.8 mCi stress and 10.94 mCi at rest. EF 66% No fixed or reversible defects Conclusion: Negative exam EF 66% Electronically signed by : Lester Torres MD 07/07/2019 13:35:19
== END ==
PROVIDERS: PCP Internal Medicine Adolescent Medicine; Visit Provider Internal Medicine
DX: R07.9 Chest pain, unspecified (principal)
CPT/HCPCS: 78452; 93017; A9502; J2785

== ENCOUNTER → 2019-09-28 08:02 | Outpatient (CLI) | payer BC, SELFPAY ==
[2019-09-28 13:54] LABS: Coronavirus 19 IgG Antibody Negative (Negative)
[2019-09-28 13:57] LABS: Coronavirus 19 IgM Antibody Positive (Negative)
== END ==
PROVIDERS: Visit Provider Internal Medicine Gastroenterology
DX: Z01.818 Encounter for other preprocedural examination (principal)
CPT/HCPCS: 36415; 86328

== ENCOUNTER → 2019-09-28 16:03 | Outpatient (CLI) | payer BC, SELFPAY ==
[2019-10-01 08:54] LABS: Covid-19 Nasal PCR Sendout Lex Not Detected
== END ==
PROVIDERS: PCP Nurse Practitioner Family; Visit Provider Nurse Practitioner Family
DX: U07.1 COVID-19 (principal)
CPT/HCPCS: U0004

== ENCOUNTER → 2019-10-02 12:48 | Outpatient (CLI) | payer BC, SELFPAY ==
[2019-10-02 18:46] LABS: Coronavirus 19 IgG Antibody Negative (Negative); Coronavirus 19 IgM Antibody Negative (Negative)
[2019-10-03 15:07] LABS: Covid-19 Nasal PCR Sendout Lex NOT DETECTED
== END ==
PROVIDERS: Visit Provider Internal Medicine Adolescent Medicine
DX: Z03.818 Encounter for observation for suspected exposure to other biological agents ruled out (principal); Z01.84 Encounter for antibody response examination; R05 Cough; D89.9 Disorder involving the immune mechanism, unspecified
CPT/HCPCS: 36415; 86328; U0004

== ENCOUNTER 2019-10-25 19:06 | Emergency (ER) | payer BC, SELFPAY ==
[2019-10-25 19:22] VITALS: BP 120/78; PULSE 97; RESP 22; TEMP 36.9; O2SAT 98; BMI 36.3
--- NOTE | 2019-10-25 19:30 | HMH.EDUTC ---
[facility] [place] Disposition Clinical Impression: Cellulitis Qualifiers: Site of cellulitis: unspecified site Qualified Code(s): L03.90 - Cellulitis, unspecified Disposition: Home, Self-Care Condition on Discharge: Good Instructions: Cellulitis, Clindamycin, DI for Spider Bites Additional Instructions: Keep area clean and dry *Follow up with family doctor if no improvement or any worsening of symptoms Return if needed Straight to ER if any life threatening symptoms Prescriptions: clindamycin HCL [Clindamycin HCl 300mg Cap] 300 mg PO Q8 5 Days #15 cap Transmission Status: Received by [facility] [employer] Referrals: Jarrett David MD [Primary Care Provider] - As needed Time of Disposition: 19:52 Medical Decision Making - Erik Inquiry Pt receiving controlled substance: No Erik was queried for this patient: No Vital Signs: 10/25/19 19:22 Temperature 98.4 F Temperature Source Oral Pulse Rate [Right Brachial] 97 H Respiratory Rate 22 Blood Pressure [Right Arm] 120/78 Blood Pressure Mean [Right Arm] 92 Blood Pressure Source [Right Arm] Automatic Cuff Blood Pressure Position [Right Arm] Sitting 02 Sat by Pulse Oximetry 98 Oxygen Delivery Method Room Air Orders (Tests/Meds): ED MEDICATIONS Discontinued Medications Generic Name Dose Route Start Last Admin Trade Name Freq PRN Reason Stop Dose Admin Clindamycin HCl 300 mg 10/25/19 19:54 10/25/19 19:55 Cleocin 150mg Capsule PO 10/25/19 19:55 300 mg ONCE ONE Administration Protocol [facility] HPI - General Stated complaint: Possible spider bite L middle finger Time Seen by Provider: 10/25/19 19:30 Mode of Arrival: Ambulatory Source of Information: Patient Limitations: No Limitations Description of Symptoms (Recalled from Triage Doc. by RN): PATIENT C/O POSSIBLE SPIDER BITE TO RIGHT MIDDLE FINGER X2 DAYS. DENIES ITCHING OR FEVER, BUT STATES IT IS VERY PAINFUL HEENT Symptoms (Recalled from RN notes): No Resp Symptoms (Recalled from RN notes): No Skin Symptoms (Recalled from RN notes): Yes MS Symptoms (Recalled from RN notes): No Functional Status (Recalled from RN notes): WNL - History of Present Illness Provider Complaint: Patient states that she woke up in the middle of the night a couple of nights ago with pain in her left middle finger States that she thinks she was bitten by a spider States that she has killed several large spiders in her house lately and she noticed she had two small puncture wounds like a bite holley then started having small blister like areas surrounding the bite that hurts and sore - Related Data Home Medications Medication Instructions Recorded Confirmed Omeprazole [Omeprazole 40mg 40 mg PO DAILY 04/29/17 09/26/19 Capsule] ALPRAZolam [Xanax 0.5mg tab] 0.5 mg PO DAILYP PRN 06/15/19 09/26/19 Folic Acid 1 mg PO DAILY 06/15/19 09/26/19 metHOTREXate sodium [metHOTREXate 20 mg PO WEEKLY 06/15/19 09/26/19 2.5mg Tablet] Adalimumab [Humira] 40 mg SQ DAILY 09/26/19 Previous Rx's Medication Instructions Recorded clindamycin HCL [Clindamycin HCl 300 mg PO Q8 5 Days #15 cap 10/25/19 300mg Cap] Allergies Allergy/AdvReac Type Severity Reaction Status Date / Time morphine [MORPHINE] Allergy Severe orbital Verified 07/07/19 12:28 edema Penicillins [PENICILLINS] Allergy Intermediate I-RASH Verified 07/07/19 12:28 - Worker's Comp Is this a Worker's Comp case?: No [facility] History - Hepatitis A Screen Drug use history?: No High risk sexual behaviors?: No History of sexually transmitted infection?: No Currently employed?: No Childcare worker?: No Do you have indoor plumbing?: Yes Do you have electricity?: Yes Attestation statement:: This patient has been screened for Hepatitis A risk factors. I have reviewed the patient's past medical history: Yes Medical History: Reports:: Anxiety, Cancer (skin back) Denies:: Diabetes Mellitus Type 1, Diabetes Mellitus Type 2, Internal Pacem
[2019-10-25 19:59] VITALS: BP 120/78; PULSE 97; RESP 22; TEMP 36.9; O2SAT 98
== END 2019-10-25 20:05 | disposition home or self-care (01) ==
PROVIDERS: Emergency Provider Nurse Practitioner; PCP Internal Medicine Adolescent Medicine
DX: S60.463A Insect bite (nonvenomous) of left middle finger, initial encounter (principal); L03.012 Cellulitis of left finger; F41.9 Anxiety disorder, unspecified; M19.90 Unspecified osteoarthritis, unspecified site; F17.210 Nicotine dependence, cigarettes, uncomplicated; Z90.49 Acquired absence of other specified parts of digestive tract; Z88.0 Allergy status to penicillin; Z88.5 Allergy status to narcotic agent
CPT/HCPCS: 99201

== ENCOUNTER 2019-10-31 20:09 | Emergency (ER) | payer BC, SELFPAY ==
[2019-10-31 20:27] VITALS: BP 121/76; PULSE 74; RESP 20; TEMP 36.7; O2SAT 98; BMI 37.8
[2019-10-31 21:15] VITALS: BP 121/76; PULSE 74; RESP 20; TEMP 36.7; O2SAT 98
--- NOTE | 2019-10-31 21:19 | HMH.EDUTC ---
[facility] [place] Disposition Clinical Impression: Cellulitis Qualifiers: Site of cellulitis: unspecified site Qualified Code(s): L03.90 - Cellulitis, unspecified Disposition: Home, Self-Care Condition on Discharge: Good Instructions: Cellulitis Additional Instructions: Use Medication as prescribed *Follow up with Dermatolgy for further evaluation and treatment Return if needed Call Dr Torres office tomorrow and make appointment Follow up with Family doctor if no improvement or any worsening of symtpoms Straight to ER if any life threatening symptoms Prescriptions: Mupirocin Calcium [Mupirocin 2% Cream 15gm] 1 applicatio TP TID 10 Days #1 tube Transmission Status: Received by [facility] Referrals: Jarrett David MD [Primary Care Provider] - As needed Breezy Peñaloza MD [Referring] - (Call tomorrow and make appointment) Time of Disposition: 21:26 Medical Decision Making - Erik Inquiry Pt receiving controlled substance: No Erik was queried for this patient: No Vital Signs: 10/31/19 20:27 10/31/19 21:15 Temperature 98.1 F 98.1 F Temperature Source Oral Pulse Rate 74 Pulse Rate [Right Brachial] 74 Respiratory Rate 20 20 Blood Pressure 121/76 Blood Pressure [Right Arm] 121/76 Blood Pressure Mean [Right Arm] 91 Blood Pressure Source [Right Arm] Automatic Cuff Blood Pressure Position [Right Arm] Sitting 02 Sat by Pulse Oximetry 98 Oxygen Delivery Method Room Air Orders (Tests/Meds): ORDERS Category Date Time Status Wound Culture and Gram Stain Stat Micro 10/31/19 21:27 Received [facility] [place] HPI - General Stated complaint: Spider bite on finger Time Seen by Provider: 10/31/19 20:35 Mode of Arrival: Ambulatory Source of Information: Patient Limitations: No Limitations Description of Symptoms (Recalled from Triage Doc. by RN): PATIENT C/O SPIDER BITE TO LEFT FINGER X 1 WEEK THAT IS NOT GETTING BETTER AFTER TREATMENT HEENT Symptoms (Recalled from RN notes): No Resp Symptoms (Recalled from RN notes): No Skin Symptoms (Recalled from RN notes): Yes MS Symptoms (Recalled from RN notes): No Functional Status (Recalled from RN notes): WNL - History of Present Illness Provider Complaint: Patient states that she was seen and treated over a week ago for spider bite on her left middle finger States that she has finished antibotics and it is still there and new blisters come and go States that area is still sore and not spread States that she has been using over the counter Hydrocortisone on it but not helped - Related Data Home Medications Medication Instructions Recorded Confirmed Omeprazole [Omeprazole 40mg 40 mg PO DAILY 04/29/17 09/26/19 Capsule] ALPRAZolam [Xanax 0.5mg tab] 0.5 mg PO DAILYP PRN 06/15/19 09/26/19 Folic Acid 1 mg PO DAILY 06/15/19 09/26/19 metHOTREXate sodium [metHOTREXate 20 mg PO WEEKLY 06/15/19 09/26/19 2.5mg Tablet] Adalimumab [Humira] 40 mg SQ DAILY 09/26/19 Previous Rx's Medication Instructions Recorded clindamycin HCL [Clindamycin HCl 300 mg PO Q8 5 Days #15 cap 10/25/19 300mg Cap] Mupirocin Calcium [Mupirocin 2% 1 applicatio TP TID 10 Days #1 tube 10/31/19 Cream 15gm] Allergies Allergy/AdvReac Type Severity Reaction Status Date / Time morphine [MORPHINE] Allergy Severe orbital Verified 07/07/19 12:28 edema Penicillins [PENICILLINS] Allergy Intermediate I-RASH Verified 07/07/19 12:28 - Worker's Comp Is this a Worker's Comp case?: No [facility] History - Hepatitis A Screen Drug use history?: No High risk sexual behaviors?: No History of sexually transmitted infection?: No Currently employed?: No Childcare worker?: No Do you have indoor plumbing?: Yes Do you have electricity?: Yes Attestation statement:: This patient has been screened for Hepatitis A risk factors. I have reviewed the patient's past medical history: Yes Medical History: Reports:: Anxiety, Cancer (skin back) Denies:: Diabetes Mellitus Type 1, Diabet
== END 2019-10-31 21:36 | disposition home or self-care (01) ==
PROVIDERS: Emergency Provider Nurse Practitioner; PCP Internal Medicine Adolescent Medicine
DX: L03.012 Cellulitis of left finger (principal); F41.9 Anxiety disorder, unspecified; F17.210 Nicotine dependence, cigarettes, uncomplicated; Z88.0 Allergy status to penicillin; Z88.5 Allergy status to narcotic agent; Z90.49 Acquired absence of other specified parts of digestive tract; Z90.79 Acquired absence of other genital organ(s)
CPT/HCPCS: 87070; 87205; 99201

== ENCOUNTER → 2019-11-16 08:51 | Outpatient (CLI) | payer BC, SELFPAY ==
[2019-11-16 10:39] LABS: Coronavirus 19 IgG Antibody Positive (Negative)
[2019-11-16 10:40] LABS: Coronavirus 19 IgM Antibody Positive (Negative)
== END ==
PROVIDERS: Visit Provider Internal Medicine Gastroenterology
DX: Z01.818 Encounter for other preprocedural examination (principal); K21.9 Gastro-esophageal reflux disease without esophagitis
CPT/HCPCS: 36415; 86328

== ENCOUNTER → 2019-11-17 17:26 | Outpatient (CLI) | payer BC, SELFPAY ==
[2019-11-19 16:38] LABS: Covid-19 Nasal PCR Sendout UK Not Detected
== END ==
PROVIDERS: Visit Provider Internal Medicine Adolescent Medicine
DX: U07.1 COVID-19 (principal)
CPT/HCPCS: U0003

== ENCOUNTER → 2019-11-28 15:32 | Outpatient (CLI) | payer BC, SELFPAY | PROVIDERS: Visit Provider Internal Medicine Adolescent Medicine | DX: Z20.828 Contact with and (suspected) exposure to other viral communicable diseases (principal) | CPT/HCPCS: U0003 ==

== ENCOUNTER → 2019-12-04 12:30 | Outpatient (CLI) | payer BC, SELFPAY ==
--- NOTE | 2019-12-04 12:33 | XR_ITS ---
PROCEDURE: XR FOOT RT MIN 3V CLINICAL INDICATION: RHEUMATOID ARTHRITIS,PAIN,PARESTHESIA COMPARISON: CR FTL3 FOOT-LT-3 VIEWS from 12/28/2012 CR FTL3 FOOT-LT-3 VIEWS from 02/10/2013 FINDINGS: No fracture or dislocation. No lytic or blastic change. There is normal mineralization. The joint spaces are well-preserved. No significant degenerative/arthritic changes. No erosive changes evident. Other findings:None. IMPRESSION: No acute findings. Dictated b Lester Torres MD 12/04/2019 13:37 Lester Torres MD in [place] 12/04/2019 13:37
--- NOTE | 2019-12-04 12:33 | XR_ITS ---
PROCEDURE: XR FOOT LT MIN 3V CLINICAL INDICATION: RHEUMATOID ARTHRITIS,PAIN,PARESTHESIA COMPARISON: CR FTL3 FOOT-LT-3 VIEWS from 12/28/2012 CR FTL3 FOOT-LT-3 VIEWS from 02/10/2013 FINDINGS: No fracture or dislocation. No lytic or blastic change. There is normal mineralization. The joint spaces are well-preserved. No significant degenerative/arthritic changes. No erosive changes evident. Other findings:None. IMPRESSION: No acute findings. Dictated b Lester Torres MD 12/04/2019 13:36 Lester Torres MD in [place] 12/04/2019 13:36
== END ==
PROVIDERS: PCP Internal Medicine Adolescent Medicine; Visit Provider Nurse Practitioner Family
DX: M05.79 Rheumatoid arthritis with rheumatoid factor of multiple sites without organ or systems involvement (principal); M79.671 Pain in right foot; M79.672 Pain in left foot; R20.2 Paresthesia of skin
CPT/HCPCS: 73630

== ENCOUNTER → 2019-12-20 12:33 | Outpatient (CLI) | payer BC, SELFPAY ==
[2019-12-21 15:51] LABS: Covid-19 Nasal PCR Sendout Lex NOT DETECTED
== END ==
PROVIDERS: Visit Provider Internal Medicine Gastroenterology
DX: Z01.818 Encounter for other preprocedural examination (principal); Z12.11 Encounter for screening for malignant neoplasm of colon
CPT/HCPCS: U0004

== ENCOUNTER 2019-12-22 09:27 | Day surgery (SDC) | payer BC, SELFPAY ==
[2019-12-18 09:01] VITALS: BMI 38.1
[2019-12-22] VITALS (7 sets, daily range): BP systolic 98–148; BP diastolic 69–96; PULSE 73–90; RESP 18; TEMP 36.6; O2SAT 94–98
--- NOTE | 2019-12-22 10:52 | HMH.ANESCL ---
[facility] Anesthesia Checklist - Patient Identification Patient Identification: Arm Band, Verbal (Name & ) - Structural Data Admitted From: Home Planned Operative Procedure/s: EGD/Colonoscopy Consent for Planned Operative Procedure(s) Verified: Yes Verified Documents: Surgical Consent, History and Physical - NPO Status Verified Time NPO: 00:00 - Additional verifications Patient : No Anesthesia Reactions: Yes (PONV) - Airway Assessment C-Spine Mobility Assessed: Yes TMJ Mobility Assessed: Yes Dentition: Edentulous - Neurological Assessment Level of Consciousness: Awake, Alert, Appropriate, Follows Commands Hx Seizures: No Numbness or tingling in extremities: No - Anesthesia Plan Anesthesia Risk discussed: Yes Anesthesia Plan: Verified ASA Class: III Anesthesia Type: MAC [facility] History I have reviewed the patient's past medical history: Yes Medical History: Reports:: Anxiety, Cancer (skin), Gastroesophageal Reflux Disease(GERD) Denies:: Diabetes Mellitus Type 1, Diabetes Mellitus Type 2, Internal Pacemaker, MRSA, Seizures *Have you ever received a pneumonia vaccine?: No *Have you received a flu vaccine this season?: No Other Medical History: Reports: Arthritis Anesthesia experience/problems:: PONV Laterality Cases: Right: Arthroscopy Shoulder Other Surgeries: Yes: Cholecystectomy, Colonoscopy, (x1), EGD, Hysterectomy-Partial, Skin Cancer Excision (x2), Other (Right rotator cuff repair). No: Pacemaker Amputation: No Fractures: No - *Social History Last grade of school completed: High school graduate Smoking Status: Current every day smoker Tobacco Type: cigarettes # Packs/Day (cigarettes): 1 Alcohol Intake: never Substance Use Type: denies use *Occupational Status:: employed Housing: house Household Members: family *Travel in the last 8 weeks: None - Psychiatric History Pschychiatric History:: Reports:: Anxiety Family Hx:: No significant family history
--- NOTE | 2019-12-22 10:53 | HMH.PROC ---
[facility] Procedure Note Procedure Note:: Upper Endoscopy Procedure Report: Esophagogastroduodenoscopy with cold biopsies Endoscopost: Jose Alberto Griggs II, MD Referring Physician: Jarrett David MD Date of Procedure: December 22, 2019 Equipment: Olympus GIF 180 standard upper endoscope Sedation: MAC sedation Indications: Mrs. Moreno is a 49-year-old female with heartburn and reflux. She does have chronic GERD and has been on omeprazole (Prilosec) 40 mg daily. She does report dyspepsia with epigastric abdominal discomfort, bloating, early satiety and occasional nausea. She reports no dysphagia, globus sensation or belching. She reports no melena or weight loss. Procedure: Prior to the procedure, a history and physical exam was performed, and patient's medications and allergies were reviewed. The risks, benefits and alternatives of the sedation and procedure were discussed with the patient. All questions were answered and informed consent was obtained. The patient was brought to the procedure room. Patient identification and proposed procedure were verified by the physician and the nurse. The patient was placed in a left lateral decubitus position and the scope was passed under direct vision. Throughout the procedure, the patient's blood pressure, pulse, and oxygen saturations were monitored continuously. The upper GI endoscopy was accomplished without difficulty. The patient tolerated the procedure well. Findings: The scope was passed directly into the upper esophagus and advanced to the third portion of the duodenum. The post bulbar duodenum and duodenal bulb were normal with normal mucosa and conniventes. The scope was withdrawn through a normal duodenal bulb and pylorus into the stomach. There was some linear erythema of the antrum and body of the stomach. There was some bile reflux. The remainder of the antrum, body and fundus of the stomach were grossly normal. Upon retroflexion there was a very small sliding 1 to 2 cm hiatal hernia. 2 biopsies were taken in the antrum and along the lesser curvature for histology to rule out gastritis and/or H pylori. The scope was then withdrawn into the esophagus. There was a serrated Z line with grade A reflux esophagitis. Biopsies were taken from a single tongue of salmon-colored mucosa to rule out short segment Nair's esophagus. There were some tertiary contractions and mild esophageal dysmotility. The remainder of the esophageal mucosa was normal. Impression: 1. Grade A reflux esophagitis (LA classification) with very small sliding hiatal hernia and mild esophageal dysmotility 2. Bowel reflux with linear reactive gastropathy Plan: I will follow up the biopsies. The patient does have some functional dyspepsia and functional GERD. We will discuss additional dietary measures and treatment options. I will proceed with diagnostic colonoscopy.
--- NOTE | 2019-12-22 11:15 | P.PCN_ITS ---
[facility] Procedure Note Procedure Note:: Colonoscopy Procedure Report: Colonoscopy with cold biopsies, cold snare polypectomy and monopolar ablation/coagulation of internal hemorrhoids to destruction Endoscopist: Jose Alberto Griggs II, MD Referring physician: Jarrett David MD Date of Procedure: December 22, 2019 Equipment: Olympus 180 variable stiffness pediatric colonoscope Sedation: MAC sedation Indication: Mrs. Moreno is a 49-year-old female who is here for diagnostic colonoscopy. The patient does have more frequent bright red rectal bleeding over the last 3 to 6 months with blood sometimes in the toilet bowl. The patient also has more frequent diarrhea and bowel urgency. She reports no abdominal pain, weight loss or family history of colon cancer. Her last colonoscopy was more than 10 years ago. She does have some dyspepsia and reflux. Procedure: Prior to the procedure, a history and physical exam was performed, and patient's medications and allergies were reviewed. The risks, benefits and alternatives of the sedation and procedure were discussed with the patient. All questions were answered and informed consent was obtained. The patient was brought to the procedure room. Patient identification and proposed procedure were verified by the physician and the nurse. The patient was placed in a left lateral decubitus position and the scope was passed under direct vision. Throughout the procedure, the patient's blood pressure, pulse, and oxygen saturations were monitored continuously. The colonoscopy was accomplished without difficulty. The patient tolerated the procedure well. Findings: On digital rectal examination there was normal rectal tone. There were no external hemorrhoids. The colonoscope was introduced through the anal canal to the rectum and advanced to the cecum. The ileocecal valve and appendiceal orifice were identified. The scope was advanced a short distance into the ileum which appeared grossly normal. The scope was then withdrawn into the colon. The cecum, ascending and transverse colon were grossly normal. Cold biopsies were taken from the right colon to rule out microscopic colitis. There was a diminutive 3 mm polyp in the descending colon removed via cold snare polypectomy. The remainder of the sigmoid and rectum were grossly normal and there were no other mucosal abnormalities identified. Upon retroflexion within the rectum there were grade 1-2 internal hemorrhoids. The hemorrhoids were ablated (3 columns) using monopolar ablation/coagulation to destruction of the internal hemorrhoids. The preparation was excellent throughout with Protem Preparation Score of 9. The cecal time was 14 minutes. Impression: 1. Diminutive descending colon polyp (3 mm hyperplastic appearing polyp) 2. Grade 1-2 internal hemorrhoids status post monopolar ablation/coagulation Plan: I will follow-up the biopsies. If the patient does have microscopic colitis, I would consider Entocort. I suspect that she has IBS diarrhea. I am going to recommend dietary measures, bulk fiber and probiotic. We will discuss additional treatment options. If the polyp is hyperplastic, she will not require surveillance colonoscopy again for 10 years.
== END 2019-12-22 12:11 | disposition home or self-care (01) ==
LOC: OUTP 09:29
PROVIDERS: PCP Internal Medicine Adolescent Medicine; Visit Provider Internal Medicine Gastroenterology
PROC: 0DJ08ZZ Inspection of Upper Intestinal Tract, Via Natural or Artificial Opening Endoscopic (ICD-10-PCS; CPT 43235; principal; 2019-12-22 10:30)
DX: K63.5 Polyp of colon; K64.0 First degree hemorrhoids; K21.0 Gastro-esophageal reflux disease with esophagitis; K22.4 Dyskinesia of esophagus; K44.9 Diaphragmatic hernia without obstruction or gangrene; K31.9 Disease of stomach and duodenum, unspecified; K30 Functional dyspepsia; F41.9 Anxiety disorder, unspecified; M19.90 Unspecified osteoarthritis, unspecified site; Z85.828 Personal history of other malignant neoplasm of skin; Z90.49 Acquired absence of other specified parts of digestive tract; Z87.39 Personal history of other diseases of the musculoskeletal system and connective tissue
CPT/HCPCS: 45385; 45380; 45388; 43239

== ENCOUNTER 2019-12-27 13:07 | Emergency (ER) | payer BC, SELFPAY ==
[2019-12-27 13:28] VITALS: BP 134/81; PULSE 85; RESP 17; TEMP 37.3; O2SAT 99; BMI 38.5
[2019-12-27 14:05] VITALS: BP 107/64; PULSE 82; O2SAT 96
[2019-12-27 14:33] VITALS: BP 126/87; PULSE 84; O2SAT 95
--- NOTE | 2019-12-27 15:01 | HMH.EDGENADL ---
ED Disposition Clinical Impression: Rectal pain Disposition: Home, Self-Care Condition on Discharge: Good Additional Instructions: Continue MiraLAX and fiber. Tramadol as prescribed for pain. Call Dr. Griggs office tomorrow morning and they will arrange a prescription for nitroglycerin ointment. Additional instructions for CONTROLLED SUBSTANCES: You have been prescribed a medication that is a controlled substance. Controlled substances include pain medications known as opiates and sedative nerve medications known as benzodiazepines. Tramadol, fioricet, and gabapentin are also controlled substances. Some common opiates include: Codeine (such as Tylenol #3) Hydrocodone (Vicodin, Lortab, Lorcet, Guadalupita) Oxycodone (Percocet, Percodan, Oxycodone, Oxy IR) Some common benzodiazepines include: Diazepam (Valium) Lorazepam (Ativan) Alprazolam (Xanax) Clonazepam (Klonopin) Oxazepam (Serax) All of these controlled substances are highly addictive and frequently abused. Misuse can and frequently does lead to addiction as well as overdose and . Medication should be stored in a locked cabinet or other secure storage unit. Do not store the medication in a motor vehicle. Short term supplies, 3 days or less, are prescribed because of the highly addictive nature of the medication. Any of the controlled substance medication NOT taken should be disposed of properly and NOT SAVED. The recommended method of disposing of unused medications is: Place the medicines in a sealable plastic bag. If the medicine is a solid, crush it or add water to dissolve it. Add something undesirable (cat litter, coffee grounds, etc.) Dispose of sealed bag in household trash Do not flush or pour unused medicines down a sink or drain. Controlled substances should not be shared, given away or sold. Because of the addictive nature and frequent abuse, these medications are sometimes stolen. These medications should be kept in a safe place where they cannot be stolen. Do not keep them in your car or purse. Lost or stolen prescriptions for controlled substances WILL NOT BE REFILLED in this emergency department, regardless of whether a police report was filed. Prescriptions: Tramadol HCl [Tramadol 50mg Tab] 50 mg PO Q6HP PRN #8 tab PRN Reason: Moderate Pain Transmission Status: Received by [facility] Referrals: Brice Martinez MD [Primary Care Provider] - - Critical Care Critical Care Time: No Attestation: On 12/27/19, the high probability of a clinically significant, sudden or life threatening deterioration of the following system(s) required my full and direct attention, intervention and personal management. The time I documented below is in addition to time spent performing reported procedures but includes the following listed in this critical care notation. Medical Decision Making - Medical Records Medical records reviewed: Yes: I reviewed the patient's medical records. - Erik Inquiry Pt receiving controlled substance: Yes Erik was queried for this patient: Yes Reference #:: [id number] Risks and benefits of using a controlled substance: were discussed with pt by me Comment: 3 rxs for alprazolam Vital Signs: 12/27/19 13:28 12/27/19 14:05 12/27/19 14:33 Temperature 99.2 F Temperature Source Oral Pulse Rate Pulse Rate [Right Radial] 85 82 84 Respiratory Rate 17 Blood Pressure Blood Pressure [Right Arm] 134/81 107/64 L 126/87 Blood Pressure Mean [Right Arm] 98 78 100 Blood Pressure Source [Right Arm] Automatic Cuff Automatic Cuff Blood Pressure Position [Right Arm] Sitting Sitting 02 Sat by Pulse Oximetry 99 96 95 Oxygen Delivery Method Room Air Room Air Room Air 12/27/19 16:34 12/27/19 16:54 Temperature 98.9 F Temperature Source Oral Pulse Rate 80 Pulse Rate [Right Radial] 76 Respiratory Rate 15 Blood Pressure 120/78 Blood Pressure [Right Arm] Blood Pressure Mean [Right Ar
--- NOTE | 2019-12-27 15:17 | PC.NURSE ---
Dr King speaking to Dr. Griggs.
--- NOTE | 2019-12-27 15:25 | CT_ITS ---
PROCEDURE: CT ABDOMEN PELVIS W CON CLINICAL INDICATION: rectal pain Rectal pain and swelling COMPARISON: No exams were available for comparison TECHNIQUE: IV Contrast: 75ML OPTIRAY 350 Oral Contrast None Axial images obtained with sagittal and coronal reformats. All CT scans at the facility use one or more dose reduction, viz: automated exposure control, ma/kV adjustment per patient size (including targeted exams where dose is matched to indication, i.e. head), or iterative reconstruction technique. FINDINGS: LOWER THORAX: Patchy ground-glass density noted in the right lower lobe. ABDOMEN & PELVIS: Diffuse fatty liver infiltration. There are post cholecystectomy changes. The spleen and adrenal glands are unremarkable. Unremarkable appearing pancreas. No renal or ureteral calculi or hydronephrosis. Unremarkable appendix. Prior hysterectomy. No pelvic mass abnormal fluid collection or focal inflammatory change. No intestinal obstruction or free air no evidence of diverticulitis. No acute bony findings. IMPRESSION: 1. Patchy ground-glass density in the right lower lobe nonspecific and could be seen with atypical pneumonia. 2. No acute abdominal or pelvic findings. 3. No evidence perirectal abscess or mass. 4. Fatty liver Dictated by: Lester Torres MD 12/27/2019 16:11 Lester Torres MD in [place] 12/27/2019 16:11
[2019-12-27 15:38] LABS: Basophils % 0.4 % (0.1-2.0); Eosinophils # 0.3 K/mm3 (0.0-0.4); Hematocrit 41.2 % (37.0-47.0); Hemoglobin 14.3 g/dL (12.2-16.2); Lymphocytes # 3.2 K/mm3 (0.7-4.5); Lymphocytes % 38.2 % (10-50); Mean Corpuscular HGB Conc 34.8 g/dL (31.8-35.4); Mean Platelet Volume 7.8 fl (7.4-10.4); Monocytes # 0.6 K/mm3 (0.1-1.0); Monocytes % 6.6 % (1.7-9.3); Neutrophils # 4.3 K/mm3 (1.8-7.8); Neutrophils % 51.7 % (37.0-80.0); Platelet Count 274 K/mm3 (142-424); Red Blood Count 4.48 M/mm3 (4.20-5.40); Red Cell Distribution Width 13.8 % (11.5-17.5); White Blood Count 8.3 K/mm3 (4.8-10.8)
[2019-12-27 15:41] LABS: Chloride 106 mmol/L (98-107); Potassium 3.9 mmoL/L (3.5-5.1); Sodium 142 mmol/L (136-145)
[2019-12-27 15:44] LABS: Anion Gap 11.9 mEq/L (5-15); Blood Urea Nitrogen 9 mg/dl (7-17); Calcium 9.5 mg/dl (8.4-10.2); Carbon Dioxide 28 mmol/L (22.0-30.0); Creatinine Clearance Estimated 130 mL/min (50-200); Estimated Glomerular Filt Rate 88 ml/min (>60); GFR (African American) 107 ML/MIN (>60); Glucose 110 mg/dl (74-100)
--- NOTE | 2019-12-27 15:58 | PC.NURSE ---
Pt returned from rad.
[2019-12-27 16:34] VITALS: PULSE 76; O2SAT 97
--- NOTE | 2019-12-27 16:46 | PC.NURSE ---
Dr King speaking with Dr Griggs
[2019-12-27 16:54] VITALS: BP 120/78; PULSE 80; RESP 15; TEMP 37.2; O2SAT 99
== END 2019-12-27 16:55 | disposition home or self-care (01) ==
PROVIDERS: Emergency Provider Emergency Medicine; PCP Internal Medicine Adolescent Medicine
DX: K62.89 Other specified diseases of anus and rectum (principal); K21.9 Gastro-esophageal reflux disease without esophagitis; F17.210 Nicotine dependence, cigarettes, uncomplicated; Z88.0 Allergy status to penicillin; Z88.5 Allergy status to narcotic agent; Z90.49 Acquired absence of other specified parts of digestive tract; Z90.79 Acquired absence of other genital organ(s)
CPT/HCPCS: 74177; 80048; 85025; 99283; Q9967

== ENCOUNTER → 2020-04-29 18:06 | Outpatient (CLI) | payer BC, SELFPAY | PROVIDERS: PCP Internal Medicine Adolescent Medicine; Visit Provider Nurse Practitioner Family | DX: Z11.52 Encounter for screening for COVID-19 (principal); J02.9 Acute pharyngitis, unspecified | CPT/HCPCS: U0003 ==

== ENCOUNTER → 2021-03-04 08:46 | Outpatient (CLI) | payer BC, SELFPAY ==
[2021-03-04 09:55] LABS: Erythrocyte Sedimentation Rate 14 mm/hr (0-30)
[2021-03-04 09:58] LABS: Basophils # 0.1 K/mm3 (0-0.2); Basophils % 1.1 % (0.1-2.0); Eosinophils # 0.1 K/mm3 (0.0-0.4); Eosinophils % 1.7 % (0.1-12.0); Hematocrit 46.7 % (37.0-47.0); Hemoglobin 15.5 g/dL (12.2-16.2); Lymphocytes # 2.8 K/mm3 (0.7-4.5); Lymphocytes % 36.2 % (10-50); Mean Corpuscular HGB Conc 33.2 g/dL (31.8-35.4); Mean Corpuscular Volume 93.6 fl (81-99); Mean Platelet Volume 8.9 fl (7.4-10.4); Monocytes # 0.5 K/mm3 (0.1-1.0); Monocytes % 5.8 % (1.7-9.3); Neutrophils # 4.2 K/mm3 (1.8-7.8); Neutrophils % 55.1 % (37.0-80.0); Platelet Count 289 K/mm3 (142-424); Red Blood Count 4.99 M/mm3 (4.20-5.40); Red Cell Distribution Width 13.2 % (11.5-17.5); White Blood Count 7.7 K/mm3 (4.8-10.8)
[2021-03-04 10:13] LABS: Chloride 102 mmol/L (98-107); Potassium 4.1 mmoL/L (3.5-5.1); Sodium 139 mmol/L (136-145)
[2021-03-04 10:16] LABS: Alanine Aminotransferase 40 U/L (12-78); Albumin Level 4.5 g/dl (3.5-5.0); Albumin/Globulin Ratio 1.4 (1.1-1.8); Alkaline Phosphatase 83 U/L (38-126); Anion Gap 14.1 mEq/L (5-15); Aspartate Amino Transferase 41 U/L (14-36); Bilirubin,Total 0.3 mg/dl (0.2-1.3); Blood Urea Nitrogen 13 mg/dl (7-17); Carbon Dioxide 27 mmol/L (22.0-30.0); Estimated Glomerular Filt Rate 105 ml/min (>60); GFR (African American) 127 ML/MIN (>60); Globulin 3.3 g/dL (1.3-3.2); Total Protein,Serum 7.8 g/dl (6.3-8.2)
[2021-03-04 10:17] LABS: Calcium 9.9 mg/dl (8.4-10.2); Glucose 93 mg/dl (74-100)
[2021-03-04 10:22] LABS: C-Reactive Protein 12.5 mg/L (0-4)
== END ==
PROVIDERS: Visit Provider Internal Medicine Rheumatology
DX: D89.9 Disorder involving the immune mechanism, unspecified (principal); R53.83 Other fatigue; Z79.899 Other long term (current) drug therapy
CPT/HCPCS: 36415; 80053; 85025; 85651; 86140

== ENCOUNTER → 2021-06-03 11:11 | Outpatient (CLI) | payer BC, SELFPAY ==
--- NOTE | 2021-06-03 11:19 | XR_ITS ---
FINAL REPORT CLINICAL HISTORY: PAIN COMPARISON: December 04, 2019 FINDINGS: RIGHT FOOT: Three weight-bearing views of the right foot were obtained. There is no acute fracture or dislocation. The joint spaces are intact. There is no soft tissue abnormality. IMPRESSION: No acute bony abnormality. Reviewed, Interpreted and Dictated by Dav Hernandez III, MD Transcribed by Samm Johnson Authenticated by Dav Hernandez III, MD on 06/03/2021 12:34:54 PM [facility]
--- NOTE | 2021-06-03 11:19 | XR_ITS ---
FINAL REPORT CLINICAL HISTORY: PAIN COMPARISON: December 04, 2019 FINDINGS: 3 weight-bearing views of the left foot were obtained. There is no acute fracture or dislocation. The joint spaces are intact. The soft tissues are unremarkable. IMPRESSION: No acute process. Reviewed, Interpreted and Dictated by Dav Hernandez III, MD Transcribed by Samm Johnson Authenticated by Dav Hernandez III, MD on 06/03/2021 12:34:59 PM [facility]
== END ==
PROVIDERS: PCP Internal Medicine Adolescent Medicine; Visit Provider Podiatrist
DX: M79.672 Pain in left foot (principal); M79.671 Pain in right foot
CPT/HCPCS: 73630

== ENCOUNTER 2021-06-11 17:00 | Outpatient (RCR) | payer BC, SELFPAY ==
--- NOTE | 2021-06-06 10:50 | HMH.PTOPEV ---
PT Outpatient Evaluation Rehab PT Outpatient Evaluation Start: 06/06/21 10:34 Freq: Status: Active Protocol: Document 06/06/21 10:35 MANDEEP (Rec: 06/06/21 10:50 MANDEEP [id number]) Electronically Signed By Tommy Hernandez, PT 06/06/21 10:35 Outpatient Therapy Subjective History Subjective History Patient is a 51 year old female presenting to outpatient PT with reports of B foot/ankle pain starting approximately 1 year ago of insidious onset. Most recent imaging negative. Patient has underwent 7 series of injections with short term relief noted. Comorbidities include hx of RA and R RCR. Chief Complaint Pain,Stiff Symptom Type Ache,Sharp Symptoms Relieved By Rest/Positioning,Ice Symptoms Aggravated By Standing,Physical Activity, Walking Prior Functional Limitations None Current Functional Limitations Housework,Standing,Walking Symptom Description Constant but Variable Level of pain today (0-10) 9 Pain scale - at its best (0-10) 7 Pain scale - at its worst (0-10) 9 Ankle/Foot Eval Gait Observation General Gait Pattern Observation Antalgic Gait,Decrease Weight Bear (R) Palpation Tenderness bilateral Ankle/Foot Palpation Findings Tenderness Ankle/Foot Palpation Overall Comment Calcaneal tubercle 3/4 ROM left Ankle/Foot Dorsiflexion w/Knee Extended -3 Active Range Motion (degrees) Ankle/Foot Dorsiflexion w/Knee Extended 0 Passive Range (degrees) Ankle/Foot Plantar Flexion Active Range WFL of Motion (degrees) Ankle/Foot Eversion Active Range of 21 Motion (degrees) Ankle/Foot Eversion Passive Range of 23 Motion (degrees) Ankle/Foot Inversion Active Range of 24 Motion (degrees) Ankle/Foot Inversion Passive Range of 28 Motion (degrees) Ankle/Foot ROM Limitations Soft Tissue Tightness Great Toe ROM Reason Not Measured Within Functional Limits right Ankle/Foot Dorsiflexion w/Knee Extended -6 Active Range Motion (degrees) Ankle/Foot Dorsiflexion w/Knee Extended -2 Passive Range (degrees) Ankle/Foot Plantar Flexion Active Range WFL of Motion (degrees) Ankle/Foot Eversion Active Range of 17 Motion (degrees) Ankle/Foot Eversion Passive Range of 22 Motion (degrees) Ankle/Foot Inversion Active Range of 14 Motion (degrees) Ankle/Foot Inversion Passive Range of 31 Motion (degrees)
== END 2021-06-11 17:05 | disposition home or self-care (01) ==
LOC: PT 17:00
PROVIDERS: PCP Internal Medicine Adolescent Medicine; Visit Provider Podiatrist
DX: M72.2 Plantar fascial fibromatosis (principal); M79.672 Pain in left foot; M79.671 Pain in right foot
CPT/HCPCS: 97010; 97014; 97035; 97110; 97140; 97163; G0283

== ENCOUNTER 2021-06-13 13:50 | Outpatient (RCR) | payer BC, SELFPAY | END 2021-06-13 14:20 | disposition home or self-care (01) | LOC: PT 13:50 | PROVIDERS: Visit Provider Podiatrist | DX: M72.2 Plantar fascial fibromatosis (principal); M79.672 Pain in left foot ==

== ENCOUNTER → 2021-06-23 07:58 | Outpatient (CLI) | payer BC, SELFPAY ==
--- NOTE | 2021-06-23 07:58 | MR_ITS ---
FINAL REPORT CLINICAL HISTORY: Pain, Plantar Fasciitis.PAIN ON PLANTAR SURFACE OF FOOT AROUND HEEL. swelling on lateral aspect of foot. x1yr. no injury or trauma. 17ml prohance given. FINDINGS: Multiplanar MR imaging of the right foot was performed with and without contrast. There is no evidence of fracture, bone bruise or marrow edema. No bony mass is identified. The musculature is intact. There is fluid and mild enhancement adjacent to the peroneus longus and peroneus brevis tendons consistent with tenosynovitis. There is thickening of the posterior plantar aponeurosis consistent with plantar fasciitis. There is a partial tear of the posterior plantar aponeurosis well-visualized on series 8, images #40-42. There is mild adjacent soft tissue edema. No soft tissue mass or cyst is identified. IMPRESSION: 1. Fluid and mild enhancement adjacent to the peroneus longus and brevis tendons consistent with tenosynovitis. 2. Plantar fasciitis. 3. Partial tear of the posterior plantar aponeurosis with adjacent mild soft tissue edema. Reviewed, Interpreted and Dictated by Dav Hernandez III, MD Transcribed by SONNY Torres Authenticated by Dav Hernandez III, MD on 06/23/2021 12:12:58 PM [facility]
--- NOTE | 2021-06-23 07:58 | MR_ITS ---
FINAL REPORT CLINICAL HISTORY: eval. for PF tear, chronic PF.PAIN ON PLANTAR SURFACE OF FOOT AROUND HEEL. PAIN DORSAL ASPECT OF FOOT AROUND METatarsals.x1yr. no injury or trauma. 17ml prohance given. FINDINGS: Multiplanar MR imaging of the left foot was performed with and without contrast. There is no evidence of fracture, bone bruise or marrow edema. No bony mass is identified. The musculature is intact. There is mild posterior tibial and peroneus longus tenosynovitis. The plantar aponeurosis is intact. There is soft tissue edema deep to the posterior plantar aponeurosis consistent with inflammation. No tear is identified. No soft tissue mass or cyst is identified. IMPRESSION: 1. No acute bony abnormality. 2. Mild posterior tibial and peroneus longus tenosynovitis. 3. Soft tissue edema deep to the posterior plantar aponeurosis consistent with inflammation. No tear is identified. Reviewed, Interpreted and Dictated by Dav Hernandez III, MD Transcribed by SONNY Torres Authenticated by Dav Hernandez III, MD on 06/23/2021 12:13:01 PM [facility]
== END ==
PROVIDERS: PCP Internal Medicine Adolescent Medicine; Visit Provider Podiatrist
DX: M72.2 Plantar fascial fibromatosis (principal); M79.672 Pain in left foot; M79.671 Pain in right foot
CPT/HCPCS: 73720; A9576

== ENCOUNTER → 2021-09-09 12:00 | Outpatient (CLI) | payer BC, SELFPAY ==
[2021-09-09 12:53] LABS: Basophils # 0.2 K/mm3 (0-0.2); Basophils % 1.3 % (0.1-2.0); Eosinophils # 0.2 K/mm3 (0.0-0.4); Eosinophils % 1.2 % (0.1-12.0); Hemoglobin 15.3 g/dL (12.2-16.2); Lymphocytes # 3.6 K/mm3 (0.7-4.5); Lymphocytes % 27.4 % (10-50); Mean Corpuscular Hemoglobin 31.1 pg (27.0-31.2); Mean Corpuscular Volume 91.4 fl (81-99); Mean Platelet Volume 8.7 fl (7.4-10.4); Monocytes # 0.7 K/mm3 (0.1-1.0); Monocytes % 5.7 % (1.7-9.3); Neutrophils # 8.4 K/mm3 (1.8-7.8); Neutrophils % 64.4 % (37.0-80.0); Platelet Count 361 K/mm3 (142-424); Red Blood Count 4.92 M/mm3 (4.20-5.40); Red Cell Distribution Width 13.3 % (11.5-17.5)
[2021-09-09 13:11] LABS: Chloride 103 mmol/L (98-107); Potassium 4.2 mmoL/L (3.5-5.1); Sodium 137 mmol/L (136-145)
[2021-09-09 13:14] LABS: Alanine Aminotransferase 28 U/L (12-78); Albumin Level 3.9 g/dl (3.5-5.0); Albumin/Globulin Ratio 1.2 (1.1-1.8); Alkaline Phosphatase 87 U/L (38-126); Anion Gap 11.2 mEq/L (5-15); Aspartate Amino Transferase 28 U/L (14-36); Bilirubin,Total 0.5 mg/dl (0.2-1.3); Blood Urea Nitrogen 13 mg/dl (7-17); Calcium 9.8 mg/dl (8.4-10.2); Carbon Dioxide 27 mmol/L (22.0-30.0); Estimated Glomerular Filt Rate 88 ml/min (>60); GFR (African American) 106 ML/MIN (>60); Globulin 3.2 g/dL (1.3-3.2); Glucose 96 mg/dl (74-100); Total Protein,Serum 7.1 g/dl (6.3-8.2)
[2021-09-09 13:38] LABS: Erythrocyte Sedimentation Rate 29 mm/hr (0-30)
[2021-09-11 21:13] LABS: QuantiFERON-TB Gold Plus Negative (Negative)
[2021-09-20 18:50] LABS: Hep A Ab, IgM NEGATIVE; Hepatitis B Core Antibody IgM NEGATIVE; Hepatitis B Surface Antigen NEGATIVE; Hepatitis C Antibody <0.1
== END ==
PROVIDERS: Visit Provider Internal Medicine Rheumatology
DX: D89.9 Disorder involving the immune mechanism, unspecified (principal); M06.9 Rheumatoid arthritis, unspecified; R53.83 Other fatigue; Z79.899 Other long term (current) drug therapy
CPT/HCPCS: 36415; 80053; 80074; 85025; 85651; 86140; 86480

== ENCOUNTER 2021-09-14 16:51 | Emergency (ER) | payer BC, SELFPAY ==
--- NOTE | 2021-09-14 17:23 | HMH.EDUTC ---
[facility] Disposition Clinical Impression: Acute bronchitis Qualifiers: Bronchitis organism: unspecified organism Qualified Code(s): J20.9 - Acute bronchitis, unspecified Otitis media Qualifiers: Otitis media type: suppurative Chronicity: acute Laterality: bilateral Recurrence: non-recurrent Spontaneous tympanic membrane rupture: without spontaneous rupture Qualified Code(s): H66.003 - Acute suppurative otitis media without spontaneous rupture of ear drum, bilateral Disposition: Home, Self-Care Condition on Discharge: Good Instructions: Middle Ear Infection, Acute Bronchitis, DI for Acute Bronchitis Additional Instructions: Drink plenty of fluids. Take tylenol or ibuprofen for pain or fever. Take the medications as directed. Follow up with your regular doctor. GO TO THE ER FOR ANY WORSENING SYMPTOMS The cough medication (promethazine dm) will make you drowsy, so don't drive or operate heavy machinery after taking it. Prescriptions: Albuterol Sulfate [Albuterol Sulfate Hfa] 2 puffs IH Q6HP PRN 30 Days #1 each PRN Reason: Shortness Of Breath Transmission Status: Received by [facility] Promethazine/Dextromethorphan [Promethazine-Dm Syrup] 5 ml PO Q6HP PRN #240 ml PRN Reason: Cough Transmission Status: Received by [facility] methylPREDNISolone [Medrol] 4 mg PO DIRECTED 6 Days #21 packet Transmission Status: Received by [facility] Azithromycin [Z-Thom 250mg Tab*] 250 mg PO UD DOSE PK #6 tab Transmission Status: Re[facility] by [facility] Referrals: Andreea Bernabe APRN [Primary Care Provider] - Medical Decision Making - Medical Records Medical records reviewed: No: I reviewed the patient's medical records. - Erik Inquiry Pt receiving controlled substance: No Vital Signs: 09/14/21 17:26 09/14/21 18:27 Temperature 98.3 F 98.3 F Temperature Source Oral Pulse Rate 89 Pulse Rate [Left Radial] 89 Respiratory Rate 20 20 Blood Pressure 127/66 Blood Pressure [Right Arm] 127/66 Blood Pressure Mean [Right Arm] 86 02 Sat by Pulse Oximetry 96 - Lab Data Lab results reviewed: Yes: I reviewed the patient's lab results. Lab Results 09/14/21 17:22: Influenza Type A Ag Negative, Influenza Type B Ag Negative 09/14/21 17:23: Group A Strep Rapid Negative Orders (Tests/Meds): ED MEDICATIONS Discontinued Medications Generic Name Dose Route Start Last Admin Trade Name Thomas PRN Reason Stop Dose Admin Methylprednisolone Sodium Succinate 125 mg 09/14/21 17:58 09/14/21 18:13 Methylprednisolone Sod Succ 125mg Vial IM 09/14/21 17:59 125 mg ONCE ONE Administration ORDERS Category Date Time Status Strep Screen Confirmation Stat Micro 09/14/21 17:23 Received [facility] HPI - General Stated complaint: congestion Time Seen by Provider: 09/14/21 17:56 - History of Present Illness Provider Complaint: She states that for the past 3 days she has had worsening sinus pressure, sore throat and chest congestion. She has a productive cough with yellowish sputum. - Related Data Home Medications Medication Instructions Recorded Confirmed Omeprazole [Omeprazole 40mg 40 mg PO DAILY 04/29/17 09/09/21 Capsule] ALPRAZolam [Xanax 0.5mg tab] 0.5 mg PO DAILYP PRN 06/15/19 09/09/21 adalimumab 40 mg/0.4 mL 40 mg SQ Q14D each 01/08/20 09/09/21 subcutaneous pen kit prednisone 10 mg tablet 10 mg PO tab 09/09/21 09/09/21 Previous Rx's Medication Instructions Recorded ibuprofen 800 mg-famotidine 26.6 1 tab PO TID 30 Days #90 tab 09/19/20 mg tablet Albuterol Sulfate [Albuterol 2 puffs IH Q6HP PRN 30 Days #1 each 09/14/21 Sulfate Hfa] Azithromycin [Z-Thom 250mg Tab*] 250 mg PO UD DOSE PK #6 tab 09/14/21 Promethazine/Dextromethorphan 5 ml PO Q6HP PRN #240 ml 09/14/21 [Promethazine-Dm Syrup] methylPREDNISolone [Medrol] 4 mg PO DIRECTED 6 Days #21 09/14/21 packet Allergies Allergy/AdvReac Type Severity Cherelle
[2021-09-14 17:26] VITALS: BP 127/66; PULSE 89; RESP 20; TEMP 36.8; O2SAT 96; BMI 39.7
[2021-09-14 17:37] LABS: Strep Scrn Group A (Rapid) Negative (Negative)
[2021-09-14 17:49] LABS: UTC Influenza A Antigen Negative (Negative); UTC Influenza B Antigen Negative (Negative)
[2021-09-14 18:27] VITALS: BP 127/66; PULSE 89; RESP 20; TEMP 36.8
== END 2021-09-14 18:28 | disposition home or self-care (01) ==
PROVIDERS: Emergency Provider Nurse Practitioner Family; PCP Nurse Practitioner Family
DX: J20.9 Acute bronchitis, unspecified (principal)
CPT/HCPCS: 87430; 87804; 96372; 99212; G0463

== ENCOUNTER 2021-09-23 15:00 | Outpatient (RCR) | payer BC, SELFPAY ==
--- NOTE | 2021-08-14 11:18 | HMH.PTOPEV ---
PT Outpatient Evaluation Rehab PT Outpatient Evaluation Start: 08/14/21 11:01 Freq: Status: Active Protocol: Document 08/14/21 11:01 SOCORRO (Rec: 08/14/21 11:10 SOCORRO [id number]) Electronically Signed By Jesus Cross, PT 08/14/21 11:01 Outpatient Therapy Subjective History Subjective History Pt reports h/o chronic right foot/heel pain since , reports recent MRI has revealed 'tear in my plantar fascia'. Pt reports compensation has created left foot/heel pain, and right foot /heel pain is now worse following transition from cast to walking boot 'last Wednesday '. Pt reports 'I think I might start using my knee scooter again'. Chief Complaint Pain,Stiff,Weakness Symptom Type Ache,Sharp,Dull Symptoms Relieved By Rest/Positioning,Ice Symptoms Aggravated By Standing,Walking Prior Functional Limitations Housework,Standing,Walking, Stairs Current Functional Limitations Housework,Standing,Walking, Stairs Symptom Description Constant but Variable Level of pain today (0-10) 10 Pain scale - at its best (0-10) 8 Pain scale - at its worst (0-10) 10 Ankle/Foot Eval Gait Observation General Gait Pattern Observation Antalgic Gait,Wide Based Gait Palpation Tenderness left Ankle/Foot Palpation Findings Tenderness Ankle/Foot Palpation Overall Comment 2/4 plantar fascia insertion right Ankle/Foot Palpation Findings Tenderness Ankle/Foot Palpation Overall Comment 3/4 plantar fascia insertion, 2/4 peroneal insertion ROM left Ankle/Foot Dorsiflexion w/Knee Extended 0-5 Active Range Motion (degrees) right Ankle/Foot Dorsiflexion w/Knee Extended 0 Active Range Motion (degrees) Ankle/Foot Plantar Flexion Active Range 0-40 of Motion (degrees) Ankle/Foot Eversion Active Range of 0-18 Motion (degrees) Ankle/Foot Inversion Active Range of 0-25 Motion (degrees) Ankle/Foot ROM Limitations Soft Tissue Tightness,Pain MMT bilateral Ankle Dorsiflexion Strength Grade 4- Good- Ankle Plantarflexion Strength Grade 4 Good Foot Eversion Strength Grade 4- Good- Foot Inversion Strength Grade 4- Good- Outpatient Therapy Assessment Impairments Problems/Impairmments Palpation Tenderness,Impaired Range of Motion,Impaired Strength,Impaired Gait Pattern
--- NOTE | 2021-09-23 15:35 | HMH.RHREAS ---
Rehab Reassessment Rehab OP Re-assessment Start: 09/23/21 15:16 Freq: Status: Active Protocol: Document 09/23/21 15:17 SOCORRO (Rec: 09/23/21 15:35 SOCORRO [id number]) Electronically Signed By Jesus Cross, PT 09/23/21 15:17 Rehab Re-assessment Subjective Subjective Pt reports inability to attend skilled P.T. visits the last 3 weeks was caused by an RA ' flare-up', reports 7/10 right heel pain and 4/10 left heel pain on VAS this pm Objective Objective Notes AROM: DF RIGHT 0, LEFT 0-7 MMT: DEIDRA. DF 4/5, PF 4--4/5, INV 4-/5, EVR 4-/5 TTP: RIGHT PLANTAR FASCIA INSERTION 3-4/4, LEFT PLANTAR FASCIA INSERTION 3/4 GAIT: ANTALGIC BILATERALLY ON LEVEL TERRAIN, NO A.D. Assessment Progress Assessment Slower Than Expected Assessment Notes SLIGHT IMPROVEMENT IN LEFT ANKLE DF ROM/ACHILLES FELXIBILITY Patient goals met STG'S 06/04 Goals Not Met STG'S 11/01, LTG'S 01/02 Plan Plan Pt to cont. w/skilled P.T. to make further improvements in ROM, strength, TTP and gait to allow for optimal function Frequency of Therapy 1-2x/wk Duration of therapy 4-6wks Time and Billing Re-Eval Time 12 Re-Eval Billing Units 1 PHYSICIAN CERTIFICATION: I certify the specified therapy services for Magdy Moreno are required, authorized, and reviewed every 30 days.
== END 2021-09-23 15:05 | disposition home or self-care (01) ==
LOC: PT 15:00
PROVIDERS: PCP Internal Medicine Adolescent Medicine; Visit Provider Podiatrist
DX: M79.672 Pain in left foot (principal); M79.671 Pain in right foot
CPT/HCPCS: 97033; 97035; 97110; 97140; 97163; 97164; 97760

== ENCOUNTER → 2021-11-06 12:36 | Outpatient (CLI) | payer BC, SELFPAY ==
[2021-11-06 13:06] LABS: Basophils # 0.1 K/mm3 (0-0.2); Basophils % 1.8 % (0.1-2.0); Eosinophils # 0.2 K/mm3 (0.0-0.4); Eosinophils % 3.3 % (0.1-12.0); Hematocrit 46.6 % (37.0-47.0); Hemoglobin 15.2 g/dL (12.2-16.2); Lymphocytes # 1.9 K/mm3 (0.7-4.5); Lymphocytes % 29.6 % (10-50); Mean Corpuscular HGB Conc 32.6 g/dL (31.8-35.4); Mean Corpuscular Hemoglobin 30.5 pg (27.0-31.2); Mean Corpuscular Volume 93.5 fl (81-99); Mean Platelet Volume 8.8 fl (7.4-10.4); Monocytes # 0.4 K/mm3 (0.1-1.0); Monocytes % 6.5 % (1.7-9.3); Neutrophils # 3.8 K/mm3 (1.8-7.8); Neutrophils % 58.8 % (37.0-80.0); Platelet Count 326 K/mm3 (142-424); Red Blood Count 4.99 M/mm3 (4.20-5.40); Red Cell Distribution Width 13.1 % (11.5-17.5); White Blood Count 6.5 K/mm3 (4.8-10.8)
[2021-11-06 13:29] LABS: Chloride 107 mmol/L (98-107); Sodium 139 mmol/L (136-145)
[2021-11-06 13:30] LABS: Potassium 4.6 mmoL/L (3.5-5.1)
[2021-11-06 13:32] LABS: Alanine Aminotransferase 35 U/L (12-78); Albumin Level 4.3 g/dl (3.5-5.0); Albumin/Globulin Ratio 1.2 (1.1-1.8); Alkaline Phosphatase 66 U/L (38-126); Anion Gap 10.6 mEq/L (5-15); Aspartate Amino Transferase 41 U/L (14-36); Bilirubin,Total 0.5 mg/dl (0.2-1.3); Blood Urea Nitrogen 13 mg/dl (7-17); Carbon Dioxide 26 mmol/L (22.0-30.0); Estimated Glomerular Filt Rate 88 ml/min (>60); GFR (African American) 106 ML/MIN (>60); Globulin 3.6 g/dL (1.3-3.2); Total Protein,Serum 7.9 g/dl (6.3-8.2)
[2021-11-06 13:33] LABS: Calcium 9.9 mg/dl (8.4-10.2); Glucose 121 mg/dl (74-100)
[2021-11-06 13:38] LABS: C-Reactive Protein 15.7 mg/L (0-4)
[2021-11-06 13:50] LABS: Erythrocyte Sedimentation Rate 21 mm/hr (0-30)
== END ==
PROVIDERS: PCP Nurse Practitioner Family; Visit Provider Internal Medicine Rheumatology
DX: D89.9 Disorder involving the immune mechanism, unspecified (principal); M06.9 Rheumatoid arthritis, unspecified; Z79.899 Other long term (current) drug therapy
CPT/HCPCS: 36415; 80053; 85025; 85651; 86140

== ENCOUNTER → 2021-12-15 14:42 | Outpatient (CLI) | payer BC, SELFPAY ==
--- NOTE | 2021-12-15 14:57 | XR_ITS ---
FINAL REPORT CLINICAL HISTORY: RHEUMATOID ARTHRITIS,LT HIP PAIN FINDINGS: LEFT HIP: Two views of the left hip with an AP pelvis demonstrate no acute fracture or dislocation. The hip joint spaces are preserved. The femoral heads have a normal smooth contour. The visualized bony structures are well aligned. No soft tissue abnormality is seen. There are bilateral tubal ligation clips present. IMPRESSION: No acute bony abnormality. Reviewed, Interpreted and Dictated by Marciano Garcia MD Transcribed by Crys Goodrich Authenticated and . [facility]
[2021-12-15 16:39] LABS: Basophils # 0.1 K/mm3 (0-0.2); Basophils % 1.3 % (0.1-2.0); Eosinophils # 0.1 K/mm3 (0.0-0.4); Eosinophils % 1.4 % (0.1-12.0); Hematocrit 45.9 % (37.0-47.0); Hemoglobin 14.5 g/dL (12.2-16.2); Lymphocytes # 2.5 K/mm3 (0.7-4.5); Lymphocytes % 30.5 % (10-50); Mean Corpuscular HGB Conc 31.7 g/dL (31.8-35.4); Mean Corpuscular Hemoglobin 30.3 pg (27.0-31.2); Mean Corpuscular Volume 95.5 fl (81-99); Mean Platelet Volume 9.1 fl (7.4-10.4); Monocytes # 0.6 K/mm3 (0.1-1.0); Neutrophils # 4.8 K/mm3 (1.8-7.8); Neutrophils % 58.7 % (37.0-80.0); Platelet Count 330 K/mm3 (142-424); Red Cell Distribution Width 13.1 % (11.5-17.5); White Blood Count 8.1 K/mm3 (4.8-10.8)
[2021-12-15 17:03] LABS: Erythrocyte Sedimentation Rate 3 mm/hr (0-30)
[2021-12-15 17:30] LABS: Alanine Aminotransferase 30 U/L (12-78); Albumin Level 4.2 g/dl (3.5-5.0); Albumin/Globulin Ratio 1.2 (1.1-1.8); Alkaline Phosphatase 90 U/L (38-126); Anion Gap 12.2 mEq/L (5-15); Aspartate Amino Transferase 33 U/L (14-36); Blood Urea Nitrogen 8 mg/dl (7-17); Calcium 9.1 mg/dl (8.4-10.2); Carbon Dioxide 28 mmol/L (22.0-30.0); Chloride 103 mmol/L (98-107); Estimated Glomerular Filt Rate 88 ml/min (>60); GFR (African American) 106 ML/MIN (>60); Globulin 3.5 g/dL (1.3-3.2); Glucose 54 mg/dl (74-100); Potassium 4.2 mmoL/L (3.5-5.1); Sodium 139 mmol/L (136-145); Total Protein,Serum 7.7 g/dl (6.3-8.2)
[2021-12-15 17:36] LABS: C-Reactive Protein 18.6 mg/L (0-4)
[2021-12-15 18:01] LABS: Bilirubin,Total < 0.1 mg/dl (0.2-1.3)
[2021-12-15 20:38] LABS: Hemoglobin A1C 5.6 % (4.0-6.0)
== END ==
PROVIDERS: PCP Nurse Practitioner Family; Visit Provider Nurse Practitioner Family
DX: M05.79 Rheumatoid arthritis with rheumatoid factor of multiple sites without organ or systems involvement (principal); M25.552 Pain in left hip; R73.9 Hyperglycemia, unspecified
CPT/HCPCS: 36415; 73502; 80053; 83036; 85025; 85651; 86140

== ENCOUNTER → 2022-02-16 09:43 | Outpatient (CLI) | payer OTHER, SELFPAY ==
[2022-02-16 10:21] LABS: Basophils # 0.1 K/mm3 (0-0.2); Basophils % 1.4 % (0.1-2.0); Eosinophils # 0.2 K/mm3 (0.0-0.4); Eosinophils % 3.2 % (0.1-12.0); Hematocrit 44.3 % (37.0-47.0); Hemoglobin 14.8 g/dL (12.2-16.2); Lymphocytes # 2.1 K/mm3 (0.7-4.5); Lymphocytes % 29.3 % (10-50); Mean Corpuscular HGB Conc 33.4 g/dL (31.8-35.4); Mean Corpuscular Hemoglobin 30.8 pg (27.0-31.2); Mean Corpuscular Volume 92.1 fl (81-99); Mean Platelet Volume 8.6 fl (7.4-10.4); Monocytes # 0.4 K/mm3 (0.1-1.0); Monocytes % 5.1 % (1.7-9.3); Neutrophils # 4.3 K/mm3 (1.8-7.8); Platelet Count 353 K/mm3 (142-424); Red Blood Count 4.81 M/mm3 (4.20-5.40); White Blood Count 7.1 K/mm3 (4.8-10.8)
[2022-02-16 10:45] LABS: Chloride 102 mmol/L (98-107); Sodium 139 mmol/L (136-145)
[2022-02-16 10:46] LABS: Potassium 4.4 mmoL/L (3.5-5.1)
[2022-02-16 10:48] LABS: Alanine Aminotransferase 24 U/L (12-78); Albumin Level 4.3 g/dl (3.5-5.0); Albumin/Globulin Ratio 1.3 (1.1-1.8); Alkaline Phosphatase 94 U/L (38-126); Anion Gap 13.4 mEq/L (5-15); Aspartate Amino Transferase 29 U/L (14-36); Bilirubin,Total 0.2 mg/dl (0.2-1.3); Blood Urea Nitrogen 12 mg/dl (7-17); Calcium 9.5 mg/dl (8.4-10.2); Carbon Dioxide 28 mmol/L (22.0-30.0); Estimated Glomerular Filt Rate 87 ml/min (>60); GFR (African American) 106 ML/MIN (>60); Globulin 3.4 g/dL (1.3-3.2); Glucose 104 mg/dl (74-100); Total Protein,Serum 7.7 g/dl (6.3-8.2)
[2022-02-16 10:54] LABS: C-Reactive Protein 18.2 mg/L (0-4)
[2022-02-16 11:21] LABS: Erythrocyte Sedimentation Rate 47 mm/hr (0-30)
[2022-02-18 19:23] LABS: QuantiFERON-TB Gold Plus Negative (Negative)
[2022-03-11 13:27] LABS: Hep A Ab, IgM NEGATIVE; Hepatitis B Core Antibody IgM NEGATIVE; Hepatitis B Surface Antigen NEGATIVE; Hepatitis C Antibody <0.1
== END ==
PROVIDERS: PCP Nurse Practitioner Family; Visit Provider Internal Medicine Rheumatology
DX: D89.9 Disorder involving the immune mechanism, unspecified (principal); M06.9 Rheumatoid arthritis, unspecified; R53.83 Other fatigue
CPT/HCPCS: 36415; 80053; 80074; 85025; 85651; 86140; 86480

== ENCOUNTER → 2022-05-04 11:58 | Outpatient (CLI) | payer OTHER, SELFPAY ==
--- NOTE | 2022-05-04 12:00 | XR_ITS ---
FINAL REPORT CLINICAL HISTORY: right foot pain, lateral foot pain COMPARISON: June 03, 2021 FINDINGS: RIGHT FOOT Three views of the right foot demonstrate no acute fracture or dislocation. The joint spaces are preserved. The soft tissues are unremarkable. IMPRESSION: No acute bony abnormality. Reviewed, Interpreted and Dictated by Dav Hernandez III, MD Transcribed by Elina Bishop Authenticated and [facility]
== END ==
PROVIDERS: PCP Nurse Practitioner Family; Visit Provider Podiatrist
DX: M79.671 Pain in right foot (principal); R20.2 Paresthesia of skin
CPT/HCPCS: 73630

== ENCOUNTER → 2022-07-22 08:40 | Outpatient (CLI) | payer OTHER, SELFPAY ==
--- NOTE | 2022-07-22 08:40 | MR_ITS ---
FINAL REPORT TECHNIQUE: Multi planar MR imaging was performed through the right foot. CLINICAL HISTORY: right plantar foot pain COMPARISON: 06/23/2021 FINDINGS: There is new bone marrow edema in the plantar aspect of the calcaneus. No fracture identified. Remaining bone signal intensity is preserved. The Lisfranc joint is intact. The Lisfranc ligament is intact. The flexor and extensor tendons to the toes are intact. The Achilles tendon is intact. Again seen is thickness of the plantar fascia. There is a partial thickness insertional tear at the os calcis. There is fluid in the retrocalcaneal bursa. There continues to be fluid surrounding the peroneal tendons. IMPRESSION: Plantar fasciitis with partial insertional tear. New reactive edema inferior to the calcaneus without fracture. Persistent mild peroneal tenosynovitis. Reviewed, Interpreted and Dictated by Brandi Shelton MD Transcribed by Maggy Ventura Authenticated and [facility]
[2022-07-22 10:58] LABS: Basophils # 0.1 K/mm3 (0-0.2); Basophils % 1.2 % (0.1-2.0); Eosinophils # 0.2 K/mm3 (0.0-0.4); Eosinophils % 2.9 % (0.1-12.0); Hematocrit 45.8 % (37.0-47.0); Hemoglobin 14.5 g/dL (12.2-16.2); Lymphocytes % 32.2 % (10-50); Mean Corpuscular HGB Conc 31.6 g/dL (31.8-35.4); Mean Corpuscular Hemoglobin 28.7 pg (27.0-31.2); Mean Platelet Volume 7.5 fl (7.4-10.4); Monocytes # 0.3 K/mm3 (0.1-1.0); Monocytes % 5.4 % (1.7-9.3); Neutrophils # 3.7 K/mm3 (1.8-7.8); Neutrophils % 58.4 % (37.0-80.0); Platelet Count 301 K/mm3 (142-424); Red Blood Count 5.04 M/mm3 (4.20-5.40); Red Cell Distribution Width 13.3 % (11.5-17.5); White Blood Count 6.4 K/mm3 (4.8-10.8)
[2022-07-22 11:34] LABS: Erythrocyte Sedimentation Rate 22 mm/hr (0-30)
[2022-07-22 12:10] LABS: Alanine Aminotransferase 24 U/L (12-78); Albumin Level 4.1 g/dl (3.5-5.0); Albumin/Globulin Ratio 1.2 (1.1-1.8); Alkaline Phosphatase 76 U/L (38-126); Anion Gap 10.7 mEq/L (5-15); Aspartate Amino Transferase 28 U/L (14-36); Bilirubin,Total 0.3 mg/dl (0.2-1.3); Blood Urea Nitrogen 12 mg/dl (7-17); Calcium 9.1 mg/dl (8.4-10.2); Carbon Dioxide 31 mmol/L (22.0-30.0); Chloride 101 mmol/L (98-107); Estimated Glomerular Filt Rate 75 ml/min (>60); GFR (African American) 90 ML/MIN (>60); Globulin 3.3 g/dL (1.3-3.2); Glucose 115 mg/dl (74-100); Potassium 4.7 mmoL/L (3.5-5.1); Sodium 138 mmol/L (136-145); Total Protein,Serum 7.4 g/dl (6.3-8.2)
[2022-07-22 12:17] LABS: C-Reactive Protein 11.4 mg/L (0-4)
== END ==
PROVIDERS: Internal Medicine Rheumatology; PCP Nurse Practitioner Family; Visit Provider Podiatrist
DX: M67.88 Other specified disorders of synovium and tendon, other site (principal); M84.374D Stress fracture, right foot, subsequent encounter for fracture with routine healing
CPT/HCPCS: 36415; 73718; 80053; 85025; 85651; 86140

== ENCOUNTER → 2022-08-18 09:52 | Outpatient (POV) | payer OTHER, SELFPAY | PROVIDERS: Visit Provider Dermatology | DX: Z00.00 Encounter for general adult medical examination without abnormal findings (principal) ==

== ENCOUNTER 2022-10-01 18:04 | Emergency (ER) | payer OTHER, SELFPAY ==
[2022-10-01 18:05] VITALS: BP 110/69; PULSE 99; RESP 18; TEMP 36.7; O2SAT 96; BMI 37.5
--- NOTE | 2022-10-01 18:17 | EXP.UTC ---
Discharge Plan Disposition Patient Disposition: Home, Self-Care Prescriptions Prescriptions: New benzonatate [benzonatate] 100 mg capsule 100 mg PO TIDP PRN (Reason: Cough) Qty: 30 0RF methylprednisolone 4 mg Tablets,Dose Pack 4 mg PO DIRECTED Qty: 21 0RF cefdinir 300 mg capsule 300 mg PO BID Qty: 20 0RF No Action sertraline 25 mg tablet 25 mg PO Label Comments: TAKE ONE TABLET BY MOUTH EVERY DAY adalimumab 40 mg/0.4 mL pen injector kit 40 mg SQ Q14D alprazolam 0.5 tablet 0.5 mg PO DAILYP PRN (Reason: Anxiety) omeprazole 40 MG capsule,delayed release(DR/EC) 40 mg PO DAILY albuterol sulfate 8.5 GM HFA aerosol inhaler 2 puffs IH Q6HP PRN (Reason: Shortness Of Breath) 30 Days Qty: 1 5RF Referrals Follow up/Referrals: Andreea Bernabe APRN [Primary Care Provider] - See instructions Activity Restrictions/Add. Instructions Additional Instructions/Restrictions: Drink plenty of fluids. Take tylenol or ibuprofen for pain or fever. Take the medications as directed. Follow up with your regular doctor. GO TO THE ER FOR ANY WORSENING SYMPTOMS Clinical Impressions Clinical Impression: Sinusitis, Left otitis media Instructions Patient Instructions: DI for Sinusitis, Sinusitis Discharge ED Provider: Jarrett Ramírez [facility] General Stated complaint: ear ache cough Time Seen by Provider: 10/01/22 18:16 History of Present Illness Provider Complaint: She states that for the past 3 days she has had left ear pain, sinus congestion and a sore throat. Related Data Home Medications Medication Instructions Recorded Confirmed omeprazole 40 mg capsule,delayed 40 mg PO DAILY Heartburn 04/29/17 09/15/22 release alprazolam 0.5 mg tablet 0.5 mg PO DAILYP PRN Anxiety 06/15/19 09/15/22 adalimumab 40 mg/0.4 mL 40 mg SQ Q14D 01/08/20 09/15/22 subcutaneous pen kit sertraline 25 mg tablet 25 mg PO 06/01/22 09/15/22 Previous Rx's Medication Instructions Recorded albuterol sulfate 90 mcg/actuation 2 puffs inhalation Q6HP PRN 09/14/21 aerosol inhaler Shortness Of Breath 30 days #1 ea benzonatate 100 mg capsule 100 mg PO TIDP PRN Cough #30 caps 10/01/22 cefdinir 300 mg capsule 300 mg PO BID #20 caps 10/01/22 methylprednisolone 4 mg tablets in 4 mg PO DIRECTED #21 tabs 10/01/22 a dose pack Allergies Allergy/AdvReac Type Severity Reaction Status Date / Time morphine [MORPHINE] Allergy Severe orbital Verified 09/15/22 11:11 edema Penicillins [PENICILLINS] Allergy Intermediate I-RASH Verified 09/15/22 11:11 [facility] Disclaimer: The information contained in this section may have been updated after the patient was seen, as this information can be updated by other users. Medical History Anxiety Cancer GERD (gastroesophageal reflux disease) Surgical History History of arthroscopy of right shoulder Family History Other Cancer Diabetes Social History Smoking Status: Current every day smoker tobacco type: cigarettes packs per day: 1 second hand exposure: No alcohol intake: never substance use type: denies use current occupational status: employed Travel in the last 8 weeks: None household members: family housing: house current occupation: [employer] current occupational exposures/hazards: No caffeine: No ROS Obtained: Yes All systems reviewed & no additional complaints except as documented Constitutional Constitutional: Reports poor appetite Eyes Eyes: Reports system reviewed and no additional complaints, except as documented ENT Ears, Nose, Mouth, and Throat: Reports as per HPI Cardiovascular Cardiovascular: Reports system reviewed and no additional complaints, except as documented and Denies angel
[2022-10-01 18:52] VITALS: BP 110/69; PULSE 99; RESP 18; TEMP 36.7; O2SAT 96
== END 2022-10-01 18:53 | disposition home or self-care (01) ==
PROVIDERS: Emergency Provider Nurse Practitioner Family; PCP Nurse Practitioner Family
DX: H66.92 Otitis media, unspecified, left ear (principal); J01.90 Acute sinusitis, unspecified; F17.210 Nicotine dependence, cigarettes, uncomplicated; K21.9 Gastro-esophageal reflux disease without esophagitis; F41.9 Anxiety disorder, unspecified
CPT/HCPCS: 99212; 99214; G0463

== ENCOUNTER → 2022-10-29 08:27 | Outpatient (CLI) | payer OTHER, SELFPAY ==
[2022-10-29 08:41] LABS: Basophils # 0.1 K/mm3 (0-0.2); Basophils % 0.8 % (0.1-2.0); Eosinophils # 0.2 K/mm3 (0.0-0.4); Eosinophils % 2.5 % (0.1-12.0); Hematocrit 45.1 % (37.0-47.0); Hemoglobin 14.5 g/dL (12.2-16.2); Lymphocytes # 2.8 K/mm3 (0.7-4.5); Mean Corpuscular HGB Conc 32.1 g/dL (31.8-35.4); Mean Corpuscular Hemoglobin 28.9 pg (27.0-31.2); Mean Corpuscular Volume 89.8 fl (81-99); Mean Platelet Volume 8.1 fl (7.4-10.4); Monocytes # 0.4 K/mm3 (0.1-1.0); Monocytes % 5.9 % (1.7-9.3); Neutrophils # 3.6 K/mm3 (1.8-7.8); Neutrophils % 50.9 % (37.0-80.0); Platelet Count 320 K/mm3 (142-424); Red Blood Count 5.03 M/mm3 (4.20-5.40); Red Cell Distribution Width 13.3 % (11.5-17.5)
[2022-10-29 09:30] LABS: Alanine Aminotransferase 23 U/L (12-78); Albumin/Globulin Ratio 1.1 (1.1-1.8); Alkaline Phosphatase 78 U/L (38-126); Anion Gap 10.4 mEq/L (5-15); Aspartate Amino Transferase 27 U/L (14-36); Bilirubin,Total 0.2 mg/dl (0.2-1.3); Blood Urea Nitrogen 15 mg/dl (7-17); Calcium 9.2 mg/dl (8.4-10.2); Carbon Dioxide 30 mmol/L (22.0-30.0); Chloride 103 mmol/L (98-107); Estimated Glomerular Filt Rate 75 ml/min (>60); GFR (African American) 90 ML/MIN (>60); Globulin 3.5 g/dL (1.3-3.2); Glucose 107 mg/dl (74-100); Potassium 4.4 mmoL/L (3.5-5.1); Sodium 139 mmol/L (136-145); Total Protein,Serum 7.5 g/dl (6.3-8.2)
[2022-10-29 09:52] LABS: Erythrocyte Sedimentation Rate 29 mm/hr (0-30)
== END ==
PROVIDERS: PCP Nurse Practitioner Family; Visit Provider Nurse Practitioner Family
DX: D84.821 Immunodeficiency due to drugs (principal); M06.9 Rheumatoid arthritis, unspecified
CPT/HCPCS: 36415; 80053; 85025; 85651; 86140

== ENCOUNTER → 2022-10-30 13:28 | Outpatient (CLI) | payer OTHER, SELFPAY ==
--- NOTE | 2022-10-30 13:30 | MM_ITS ---
PROCEDURE INFORMATION: Exam: MG Bilateral Screening 3D Mammography Exam date and time: 10/30/2022 1:30 PM Age: 52 years old Clinical indication: Screening mammogram. Family history of breast cancer in mother and in grandmother TECHNIQUE: Imaging protocol: Bilateral Screening tomosynthesis and 2D mammography including computer-aided detection (CAD) when performed. COMPARISON: 1. MG DMSB DIG MAMM-SCREEN DEIDRA W/CAD 02/05/2017 9:43 AM 2. MG DMSB DIG MAMM-SCREEN DEIDRA 04/22/2015 3:52 PM 3. MG DMSB DIG MAMM-SCREEN DEIDRA 04/18/2014 8:26 AM 4. MG DMSB DIG MAMM-SCREEN DEIDRA 01/27/2013 8:26 AM FINDINGS: MAMMOGRAPHY: Breast composition: There are scattered areas of fibroglandular density. Mass: None. Architectural distortion: No new or suspicious architectural distortion. Calcifications: No new or suspicious calcifications are present Asymmetric density: No new or suspicious asymmetric density is present Skin thickening: None. Axillary adenopathy: None. IMPRESSION: No mammographic evidence of malignancy. Recommend annual screening mammography unless otherwise clinically indicated. ASSESSMENT: BI-RADS category 1: Negative
== END ==
PROVIDERS: PCP Nurse Practitioner Family; Visit Provider Nurse Practitioner Family
DX: Z12.31 Encounter for screening mammogram for malignant neoplasm of breast (principal)
CPT/HCPCS: 77063; 77067

== ENCOUNTER → 2023-01-29 14:17 | Outpatient (CLI) | payer OTHER, SELFPAY ==
--- OUTSIDE RECORDS SUMMARY | 2023-01-29 14:20 | XMS_ITS | Continuity of Care Document ---
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 ROTATE SITES. - Active Humira Complere copay assist till 04/25/2022. PA till 03/13/2023 Plaquenil 200 mg tablet 1 tablet twice daily - Active folic acid 1 mg tablet 1 tablet daily - Active methotrexate sodium 2.5 mg tablet 6 tablets once a week - Active prednisone 5 mg tablet Take 1.5 qam - Active Zoloft 100 mg tablet take 1 tablet by
--- NOTE | 2023-01-29 14:24 | XR_ITS ---
FINAL REPORT CLINICAL HISTORY: RHEUMATOID ARTHRITIS COMPARISON: None FINDINGS: AP, oblique, and lateral views of the right elbow were obtained. There is no prior exam for comparison. There is no acute fracture or dislocation. There is a small spur projecting from the lateral humeral epicondyle. There is no joint effusion or other soft tissue abnormality. No joint erosions are visualized. IMPRESSION: Small spur projecting from the lateral femoral condyle. Reviewed, Interpreted and Dictated by Dav Hernandez III, MD Transcribed by Tari Leigh Authenticated and [facility]
--- NOTE | 2023-01-29 14:24 | XR_ITS ---
FINAL REPORT CLINICAL HISTORY: RHEUMATOID ARTHRITIS COMPARISON: None FINDINGS: AP, oblique, and lateral views of the left elbow were obtained. There is no prior exam for comparison. There is no acute fracture or dislocation. Joint space is preserved. There is no joint effusion or other soft tissue abnormality. IMPRESSION: No acute osseous abnormality of the left elbow. Reviewed, Interpreted and Dictated by Dav Hernandez III, MD Transcribed by Tari Leigh Authenticated and [facility]
== END ==
PROVIDERS: PCP Nurse Practitioner Family; Visit Provider Nurse Practitioner Family
DX: M06.9 Rheumatoid arthritis, unspecified (principal)
CPT/HCPCS: 73080

== ENCOUNTER 2023-05-03 07:20 | Outpatient (CLI) | payer OTHER, SELFPAY ==
--- NOTE | 2023-05-03 07:24 | CT_ITS ---
FINAL REPORT CLINICAL HISTORY: H/O TOBACCO USE smoker 1 ppd x 30 years FINDINGS: CTDI vol (mGy): 2.90 DLP: 96.[address] images of the chest were obtained using the low-dose protocol for screening. There are mild coronary artery calcifications. Small mediastinal lymph nodes are seen. There is right hilar adenopathy with the largest lymph node, in the inferior right hilum measuring 26 mm. No axillary mass or adenopathy is identified. On the lung window images, there are peripheral pulmonary groundglass and interstitial opacities. There is a 4 mm nodule in the right lower lobe on image 40. There is a calcified granuloma in the left upper lobe. Limited imaging of the upper abdomen demonstrates fatty infiltration of the liver and postcholecystectomy change. IMPRESSION: Right hilar adenopathy which may be reactive or neoplastic. Peripheral pulmonary groundglass opacities worrisome for interstitial lung disease. 4 mm right lower lobe nodule. Lung RADS category 2S. Recommend 3-month follow-up CT/PET CT. Reviewed, Interpreted and Dictated by Dav Hernandez III, MD Transcribed by Rosemarie Blanca Authenticated and [facility]
== END 2023-05-03 23:59 ==
LOC: RAD 07:21
PROVIDERS: PCP Nurse Practitioner Family; Visit Provider Nurse Practitioner Family
DX: Z87.891 Personal history of nicotine dependence (principal)
CPT/HCPCS: 71271

== ENCOUNTER 2023-05-20 11:04 | Outpatient (CLI) | payer OTHER, SELFPAY ==
--- NOTE | 2023-05-20 11:09 | XR_ITS ---
FINAL REPORT CLINICAL HISTORY: RT FOOT PAIN swelling x 2 weeks COMPARISON: 05/04/2022 FINDINGS: Right foot Three views were obtained. There is no acute fracture or dislocation. The joint spaces appear normal. No soft tissue abnormality is identified. IMPRESSION: No acute process. Reviewed, Interpreted and Dictated by Marciano Garcia MD Transcribed by Lisa Woodward Authenticated and [facility]
== END 2023-05-20 23:59 ==
LOC: RAD 11:05
PROVIDERS: PCP Nurse Practitioner Family; Visit Provider Nurse Practitioner Family
DX: M79.671 Pain in right foot (principal)
CPT/HCPCS: 73630

== ENCOUNTER 2023-05-26 09:20 | Outpatient (CLI) | payer OTHER, SELFPAY ==
--- NOTE | 2023-05-26 09:22 | CA_ITS ---
FINAL REPORT TECHNIQUE: Grayscale compression along with color and spectral Doppler CLINICAL HISTORY: .rt foot/ankle pain COMPARISON: None FINDINGS: RIGHT LOWER EXTREMITY VENOUS DOPPLER: Femoral and popliteal veins show normal compressibility and flow. Visualized portion of the calf veins are patent by Doppler exam. IMPRESSION: No evidence of right lower extremity deep venous thrombosis Reviewed, Interpreted and Dictated by Yovanny Carrera MD Transcribed by Tari Leigh Authenticated and [facility]
== END 2023-05-26 23:59 ==
LOC: RT 09:20
PROVIDERS: PCP Nurse Practitioner Family; Visit Provider Nurse Practitioner Family
DX: M79.671 Pain in right foot (principal)
CPT/HCPCS: 93971

== ENCOUNTER 2023-07-23 16:01 | Outpatient (CLI) | payer OTHER, SELFPAY ==
[2023-07-23 16:14] LABS: Basophils # 0.3 K/mm3 (0-0.2); Basophils % 2.2 % (0.1-2.0); Eosinophils # 0.1 K/mm3 (0.0-0.4); Eosinophils % 0.4 % (0.1-12.0); Hematocrit 42.9 % (37.0-47.0); Hemoglobin 14.1 g/dL (12.2-16.2); Lymphocytes # 3.1 K/mm3 (0.7-4.5); Mean Corpuscular Hemoglobin 30.6 pg (27.0-31.2); Mean Corpuscular Volume 92.9 fl (81-99); Mean Platelet Volume 8.4 fl (7.4-10.4); Monocytes # 0.8 K/mm3 (0.1-1.0); Monocytes % 5.9 % (1.7-9.3); Neutrophils # 9.2 K/mm3 (1.8-7.8); Neutrophils % 68.4 % (37.0-80.0); Platelet Count 332 K/mm3 (142-424); Red Blood Count 4.61 M/mm3 (4.20-5.40); Red Cell Distribution Width 13.5 % (11.5-17.5); White Blood Count 13.5 K/mm3 (4.8-10.8)
[2023-07-23 16:55] LABS: Erythrocyte Sedimentation Rate 46 mm/hr (0-30)
[2023-07-23 17:44] LABS: Alanine Aminotransferase 29 U/L (12-78); Albumin Level 4.1 g/dl (3.5-5.0); Albumin/Globulin Ratio 1.2 (1.1-1.8); Alkaline Phosphatase 71 U/L (38-126); Anion Gap 9.1 mEq/L (5-15); Aspartate Amino Transferase 26 U/L (14-36); Bilirubin,Total 0.3 mg/dl (0.2-1.3); Blood Urea Nitrogen 12 mg/dl (7-17); Calcium 9.6 mg/dl (8.4-10.2); Carbon Dioxide 31 mmol/L (22.0-30.0); Chloride 104 mmol/L (98-107); Estimated Glomerular Filt Rate 104 ml/min (>60); GFR (African American) 126 ML/MIN (>60); Globulin 3.4 g/dL (1.3-3.2); Glucose 84 mg/dl (74-100); Potassium 4.1 mmoL/L (3.5-5.1); Sodium 140 mmol/L (136-145); Total Protein,Serum 7.5 g/dl (6.3-8.2)
[2023-07-23 17:49] LABS: C-Reactive Protein 15.3 mg/L (0-4)
== END 2023-07-23 23:59 ==
LOC: LAB 16:02
PROVIDERS: PCP Nurse Practitioner Family; Visit Provider Internal Medicine Rheumatology
DX: D84.821 Immunodeficiency due to drugs (principal); M06.9 Rheumatoid arthritis, unspecified
CPT/HCPCS: 36415; 80053; 85025; 85651; 86140

== ENCOUNTER 2023-08-05 07:15 | Outpatient (CLI) | payer OTHER, SELFPAY ==
--- NOTE | 2023-08-05 07:16 | CT_ITS ---
FINAL REPORT TECHNIQUE: Axial CT images were performed from the lung apices through the upper abdomen. Coronal reformats were submitted. This study was performed with techniques to keep radiation doses as low as reasonably achievable (ALARA). Individualized dose reduction techniques using automated exposure control or adjustment of mA and/or kV according to the patient's size were employed. CLINICAL HISTORY: SOB COMPARISON: 05/03/2023 FINDINGS: There is no axillary adenopathy. There are multiple borderline size mediastinal nodes, stable. Heart size is normal. There is no pericardial or pleural effusion. There are persistent peripheral pulmonary opacities, likely [id number] peripheral interstitial fibrosis. Peripheral ground-glass opacities are seen, may represent alveolitis or edema. There is calcified granuloma in the left upper lobe. There is a 3 mm anterior right lower lobe nodule, stable. Limited images of the upper abdomen reveal fatty infiltration of the liver. The patient is status post cholecystectomy. IMPRESSION: Persistent peripheral opacities, likely peripheral interstitial fibrosis. Ground-glass opacities, may represent alveolitis or edema. Stable right lower lobe nodule. Reviewed, Interpreted and Dictated by Dav Hernandez III, MD Transcribed by Lisa Woodward Authenticated and [facility]
[2023-08-05] MEDS: ALBUTEROL 0.083% 2.5 MG/3 ML NEB IH (08:26)
--- NOTE | 2023-08-05 08:27 | PC.NURSE ---
PFT and 6 Minute Walk Test completed without incident. Albuterol 0.083% given via HHN, per protocol. Pt tolerated tx well.
[2023-08-05 12:20] LABS: Erythrocyte Sedimentation Rate 25 mm/hr (0-30)
[2023-08-05 12:37] LABS: Lactate Dehydrogenase 248 U/L (313-618); Uric Acid 3.7 mg/dl (2.5-6.2)
[2023-08-06 11:17] LABS: RA Latex Turbid. 193.2 IU/mL (<14.0)
[2023-08-07 21:58] LABS: QuantiFERON-TB Gold Plus Negative (Negative)
[2023-08-09 08:21] LABS: Homogeneous Pattern >1:1280 (.)
[2023-08-10 18:05] LABS: Aspergillus flavus Negative (Neg:<1:1); Aspergillus fumigatus Negative (Neg:<1:1); Aspergillus niger Negative (Neg:<1:1); Blastomyces Antibody Negative (Neg:<1:1); Histoplasma Antibody Quant Negative (Neg:<1:1)
[2023-08-13 08:17] LABS: Antinuclear Antibodies, IFA Positive
[2023-08-13 08:18] LABS: Aspergillus fumigatus IgG Negative; Pigeon Serum Abs Negative
== END 2023-08-05 23:59 ==
PROVIDERS: PCP Nurse Practitioner Family; Visit Provider Internal Medicine Pulmonary Disease
DX: R91.8 Other nonspecific abnormal finding of lung field (principal); R06.09 Other forms of dyspnea; J84.10 Pulmonary fibrosis, unspecified; J84.9 Interstitial pulmonary disease, unspecified; D84.9 Immunodeficiency, unspecified; J90 Pleural effusion, not elsewhere classified; R91.1 Solitary pulmonary nodule
CPT/HCPCS: 36415; 71250; 83615; 84550; 85651; 86038; 86140; 86331; 86431; 86480; 86602; 86606; 86609; 86612; 86698; 94060; 94618; 94726; 94729

== ENCOUNTER 2023-10-02 17:31 | Emergency (ER) | payer OTHER, SELFPAY ==
[2023-10-02 17:32] VITALS: BP 125/83; PULSE 108; RESP 13; TEMP 36.9; O2SAT 97; BMI 39.4
[2023-10-02 17:36] VITALS: BP 125/83; PULSE 111; O2SAT 96
--- NOTE | 2023-10-02 17:46 | XR_ITS ---
PROCEDURE INFORMATION: Exam: XR Right Hand Exam date and time: 10/02/2023 5:58 PM Age: 53 years old Clinical indication: Pain; Hand; Right; Additional info: R thumb injury after rollover mower TECHNIQUE: Imaging protocol: Radiologic exam of the right hand. Views: 3 or more views. COMPARISON: CR XR ELBOW RT MIN 3V 01/29/2023 2:26 PM FINDINGS: Bones/joints: Osseous alignment is normal. No acute fracture. No significant arthritic change. Soft tissues: Normal. IMPRESSION: Negative left hand
--- NOTE | 2023-10-02 18:11 | CT_ITS ---
PROCEDURE INFORMATION: Exam: CT Chest Without Contrast; Diagnostic Exam date and time: 10/02/2023 6:20 PM Age: 53 years old Clinical indication: Pain; Right-sided and left-sided; Additional info: Concern for anterolateral L rib fractures and R rib fractures TECHNIQUE: Imaging protocol: Diagnostic computed tomography of the chest without contrast. Radiation optimization: All CT scans at this facility use at least one of these dose optimization techniques: automated exposure control; mA and/or kV adjustment per patient size (includes targeted exams where dose is matched to clinical indication); or iterative reconstruction. COMPARISON: CT CHEST WO CON 08/05/2023 7:21 AM FINDINGS: Lungs: Mild diffuse subpleural ground-glass opacities in both lungs appear similar to previous. Pleural spaces: Unremarkable. No pneumothorax. No pleural effusion. Heart: Unremarkable. No cardiomegaly. No pericardial effusion. Coronary arteries: Moderate coronary artery calcifications. Lymph nodes: Unremarkable. No enlarged lymph nodes. Vasculature: Unremarkable. No aortic aneurysm. Liver: Liver appears diffusely fatty. Bones/joints: Mild degenerative changes throughout the thoracic spine. No vertebral body compression or acute fracture. . Soft tissues: Unremarkable. IMPRESSION: Stable mild diffuse peripheral infiltrates in both lungs suggesting chronic interstitial lung disease. No acute cardiopulmonary pathology evident
--- NOTE | 2023-10-02 18:11 | HMH.EDGENADL ---
Discharge Plan Disposition Patient Disposition: Home, Self-Care Chief Complaint: PAIN Prescriptions Prescriptions: No Action sertraline 25 mg tablet 100 mg PO Patient Comments: TAKE ONE TABLET BY MOUTH EVERY DAY prednisone 20 mg tablet 20 mg PO DAILY 0 Days Qty: 60 0RF Rx Instructions: Take 40mg oral daily (Two 20mg tabs) for 14 days followed by 20mg oral daily (one 20mg tab) for 14 days followed by oral 10mg daily (half of 20 mg tab) for 14 days and then discontinue. adalimumab 40 mg/0.4 mL pen injector kit 40 mg SQ Q14D nicotine 21 mg/24 hr patch 24 hour 1 patch topical DAILY albuterol sulfate 90 mcg/actuation HFA aerosol inhaler 2 inh inhalation QID PRN (Reason: shortness of breath or wheezing) 90 Days Qty: 8.5 2RF alprazolam 0.5 tablet 0.5 mg PO DAILYP PRN (Reason: Anxiety) omeprazole 40 MG capsule,delayed release(DR/EC) 40 mg PO DAILY Referrals Follow up/Referrals: Andreea Bernabe APRN [Primary Care Provider] - See instructions Activity Restrictions/Add. Instructions Additional Instructions/Restrictions: Take Tylenol 1000 mg every 6 hours (4 times daily) and ibuprofen 400 mg every 6 hours (4 times daily) as needed with food and water to prevent GI upset and kidney damage. Call your family doctor to establish care for this visit to the emergency department and schedule follow-up within 48 hours to ensure improvement. If you have any worsening of your condition or any other concerning signs or symptoms, return to the emergency department or your primary care doctor for further evaluation. Clinical Impressions Clinical Impression: Acute chest wall pain, Pain of right thumb Discharge ED Provider: Celso Olmos General Adult HPI General Chief complaint: PAIN Stated complaint: AO 10/02/23 1530 injury Right thumb,left rib cage Time Seen by Provider: 10/02/23 17:37 Mode of Arrival: Ambulatory Source of Information: Patient Limitations: No Limitations Description of Symptoms (Recalled from ER Triage Doc. by RN): pt presents to ED with c/o pain in right thumb, left rib radiating into back, right lower back pain. pt reports that she had a riding infrastructure engineer flip over on her. incident occured approx 2 hours ago History of Present Illness HPI narrative: Please note that above description of symptoms, in this electronic medical record under categorization of recalled from ER triage doctor by RN are reflective of an initial nursing assessment, however, is not reflective of my full history and physical exam that was personally taken and clarified. Consequentially, this preceding description of symptoms, which may include the patient's categorized chief complaint in the EMR, do not reflect my personal clinical impression, and the ultimate description of history of present illness and patient stated complaints should be deferred to this section of the note. Unless stated otherwise or congruent with this section of the note, additional signs, symptoms, or incongruence should be interpreted as inaccurate with my clinical impression. Related Data Home Medications Medication Instructions Recorded Confirmed omeprazole 40 mg capsule,delayed 40 mg PO DAILY Heartburn 04/29/17 08/05/23 release alprazolam 0.5 mg tablet 0.5 mg PO DAILYP PRN Anxiety 06/15/19 08/05/23 adalimumab 40 mg/0.4 mL 40 mg SQ Q14D 01/08/20 08/05/23 subcutaneous pen kit nicotine 21 mg/24 hr daily 1 patch topical DAILY 06/03/23 08/05/23 transdermal patch sertraline 25 mg tablet 100 mg PO 06/03/23 08/05/23 Previous Rx's Medication Instructions Recorded albuterol sulfate 90 mcg/actuation 2 inh inhalation QID PRN shortness 07/30/23 aerosol inhaler of breath or wheezing 90 days #8.5 grams prednisone 20 mg tablet 20 mg PO DAILY 0 days #60 tabs 08/05/23 Allergies Allergy/AdvReac Type Severity Reaction Status Date / Time morphine [MORPHINE] Allergy Severe orbital Verified 10/02/23 17:45 edema Penicillins [PENICILLINS] Allergy Intermediate I-RASH Verified 10/02/23 17:45 PFSH [facility] Disclaimer: The information contained in this section may have been updated after the patient was seen, as this information can be updated by other users. Medical History (Updated 10/02/23 @ 19:20 by Celso Olmos MD) Immunosuppressed status History of rheumatoid arthritis Dyspnea on exertion Mediastinal lymphadenopathy Hilar lymphadenopathy ILD (interstitial lung disease) Pulmonary emphysema Smoking greater than 30 pack years Cancer Anxiety GERD (gastroesophageal reflux disease) Surgical History History of arthroscopy of right shoulder Family History Other Cancer Diabetes Social History Smoking Status: Current every day smoker tobacco type: cigarettes packs per day: 1 second hand exposure: No alcohol intake: never substance use type: denies use current occupational status: employed Travel in the last 8 weeks: None household members: family housing: house current occupation: [employer] current occupational exposures/hazards: No caffeine: No ROS Obtained: Yes All systems reviewed & no additional complaints except as documented Physical Exam General General appearance: alert and in no apparent distress Head Head exam: atraumatic and normocephalic Eye Eye exam: Present normal appearance, PERRL and EOMI ENT ENT exam: Present mucous membranes moist Neck Neck exam: Present normal inspection, full ROM and trachea midline Chest Chest inspection: Present tenderness (Left lateral chest wall, right posterior lateral chest wall. No outward signs of injury) Respiratory Respiratory exam: Present normal lung sounds bilaterally; Absent respiratory distress, wheezes, stridor, accessory muscle use or prolonged expiratory phase Cardiovascular Cardiovascular exam: Present regular rate and normal rhythm Abdominal Exam Abdominal exam: Present soft; Absent distention, tenderness, guarding, rebound or rigidity Extremities Exam Extremities exam: Present other (Bruising about right knee, nontender. Patient does have bruising about MCP of right thumb, full range of motion and neurovascularly intact. Moderately tender); Absent edema Neurological Exam Neurological exam: Present alert, oriented X3, CN II-XII intact and normal gait; Absent motor sensory deficit Skin Skin exam: Present warm and dry; Absent diaphoresis or erythema Medical Decision Making Medical Records Medical records reviewed: Yes I reviewed the patient's medical records. Erik Inquiry Pt receiving controlled substance: No Erik was queried for this patient: No Vital Signs: 10/02/23 17:32 10/02/23 17:36 Temperature 98.5 F Temperature Source Oral Pulse Rate 111 H Pulse Rate [Left Radial] 108 H Respiratory Rate 13 Blood Pressure 125/83 Blood Pressure [Right Arm] 125/83 Blood Pressure Mean [Right Arm] 97 02 Sat by Pulse Oximetry 97 96 Oxygen Delivery Method Room Air Orders (Tests/Meds): ED MEDICATIONS Discontinued Medications Generic Name Dose Route Start Last Admin Trade Name Freq PRN Reason Stop Dose Admin Acetaminophen 1,000 mg 10/02/23 17:46 10/02/23 18:25 Acetaminophen 500mg Tab PO 10/02/23 17:47 Not Given ONCE ONE Ibuprofen 600 mg 10/02/23 17:47 10/02/23 18:24 Ibuprofen 600 Mg Tablet PO 10/02/23 17:48 600 mg ONCE ONE Administration ORDERS Category Date Time Status CT chest wo con Stat Cat Scan 10/02/23 18:11 Completed Hand XR right minimum 3 views [XR hand RT min 3V] Stat Exams 10/02/23 17:46 Completed POCUS Point of Care (ER Only) Stat Exams 10/02/23 17:46 Completed Medical Decision Narrative: 53-year-old female no relevant medical history not on anticoagulation presenting with rollover motor. Patient states that she was mowing on a riding mower, had a bump, rolled over onto her. 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 Did not land on top of her. No loss of consciousness. She has pain in her right thumb, as well as pain in her left anterolateral chest wall and right posterolateral chest wall. No dysuria or hematuria, no chest pain or shortness of breath. Is moderate in intensity, does not radiate from any of these places. Has not taken anything for pain. History obtained with patient. On arrival, patient hemodynamically stable. She has bilateral breath sounds. Chest wall tenderness anterolateral without outward signs of injury, posterolateral chest wall tenderness as well. Patient splinting with twisting movements in bed. Abdomen soft, nontender, nondistended, no outward signs of injury. She does have tenderness and bruising about the base of right thumb, but neurovascularly intact with range of motion intact. Bruising about lateral aspect of right knee, but this is nontender and patient ambulatory, states she has no concerns about it. I feel this is appropriate. Patient to be given Tylenol and Motrin for symptomatic management. Right hand x-rays to be obtained, prior to choice of CT imaging, [id number] ultrasound to be performed. If POCUS positive for intra-abdominal hemorrhage, trauma scans will be performed. If not, Noncon chest for rib fractures and underlying pulmonary damage to be obtained. [id number] ultrasound of the abdomen with normal right upper, left upper, pelvic views. No free fluid. Because of this, CT Noncon of the chest to be obtained. This demonstrated no acute pulmonary contusion, pneumothorax, rib fracture on independent interpretation. Right thumb x-rays demonstrated mild avulsion fracture versus calcified tendinosis distal phalanx, this is not where patient is tender on independent interpretation. On reevaluation, patient still in mild to moderate pain, but improved with Tylenol and Motrin. Still present. Given patient presentation, workup, history, this most likely represents musculoskeletal injury in the setting of rollover lawnmower. Because patient at baseline without signs or symptoms of clinical decompensation, deemed appropriate for discharge. Results were relayed to patient who voiced understanding and were agreeable to outpatient management and follow up. I discussed my clinical impression with patient and answered all questions. At this time, the evidence for any other entities in the differential is insufficient to warrant any further testing or ED observation. This was explained as well. Advisory was given that persistent or worsening symptoms require further evaluation. I confirmed the understanding of this discussion. Abrading Machine Tender disclaimer Much of this encounter note is an electronic qi specialist spoken language to printed text. Electronic qi specialist of the spoken language may permit errors. Although I have reviewed the note, some errors may still exist. Procedures Limited Ultrasound Indication:: Limited abdominal ultrasound Indication: Rollover mower, left lower chest/left flank pain Views: LUQ, RUQ, Pelvis Interpretation: Peritoneal Free Fluid: Absent Perisplenic blood absent Perihepatic blood absent Perirenal blood absent Impression: Negative abdominal ultrasound Images were saved to permanent archive The study was technically adequate CPT 33843-92 (limited abdominal) This study was performed by me, and I personally interpreted all images/videos. Based on my clinical judgement, these images were adequate and did not necessitate further imaging. Critical Care Critical Care Time Critical Care Time: No
[2023-10-02] MEDS: IBUPROFEN 600 MG TABLET PO (18:24)
[2023-10-02 19:25] VITALS: BP 123/82; PULSE 92; RESP 16; TEMP 36.9; O2SAT 98
== END 2023-10-02 19:26 | disposition home or self-care (01) ==
PROVIDERS: Emergency Provider Emergency Medicine; PCP Nurse Practitioner Family
DX: R07.89 Other chest pain (principal); M79.644 Pain in right finger(s); M54.59 Other low back pain; V84.5XXA Driver of special agricultural vehicle injured in nontraffic accident, initial encounter
CPT/HCPCS: 71250; 73130; 99285

== ENCOUNTER 2023-10-09 06:18 | Emergency (ER) | payer OTHER, SELFPAY ==
[2023-10-09] VITALS (8 sets, daily range): BP systolic 124–182; BP diastolic 71–104; PULSE 75–105; RESP 16–18; TEMP 36.8; O2SAT 96–98; BMI 39.4
--- NOTE | 2023-10-09 07:00 | CT_ITS ---
PROCEDURE INFORMATION: Exam: CTA Chest With Contrast Exam date and time: 10/09/2023 8:26 AM Age: 53 years old Clinical indication: On breathing and other: Chest pain; Additional info: Connor Membreno chest pain TECHNIQUE: Imaging protocol: Computed tomographic angiography of the chest with contrast. Exam focused on the arteries. 3D rendering (Not supervised by radiologist): MIP and/or 3D reconstructed images were created by the technologist. Radiation optimization: All CT scans at this facility use at least one of these dose optimization techniques: automated exposure control; mA and/or kV adjustment per patient size (includes targeted exams where dose is matched to clinical indication); or iterative reconstruction. Contrast material: ISOVUE; Contrast volume: 92 ml; Contrast route: INTRAVENOUS (IV); COMPARISON: CT CHEST WO CON 10/02/2023 6:20 PM FINDINGS: Pulmonary arteries: No evidence of pulmonary embolus to the segmental level. Aorta: No aneurysm of the aorta. No dissection of the aorta. Lungs: Mild bilateral ground-glass opacities in the upper lobes and lower lobes may represent contusions or atelectasis. Pleural spaces: Unremarkable. No pneumothorax. No pleural effusion. Heart: Coronary artery calcifications may indicate coronary artery disease. No cardiomegaly. No pericardial effusion. Lymph nodes: Node in the right hilum 16 x 11 mm and 14 x 10 mm. Gallbladder and bile ducts: Cholecystectomy Bones/joints: Unremarkable. No acute fracture. Soft tissues: Unremarkable. IMPRESSION: 1. No evidence of pulmonary embolus to the segmental level. 2. Node in the right hilum 16 x 11 mm and 14 x 10 mm. 3. Mild bilateral ground-glass opacities in the upper lobes and lower lobes may represent contusions or atelectasis.
--- NOTE | 2023-10-09 07:01 | HMH.EDGENADL ---
Discharge Plan Disposition Patient Disposition: Home, Self-Care Prescriptions Prescriptions: New methocarbamol 500 mg tablet 1,000 mg PO Q8H Qty: 24 0RF No Action sertraline 25 mg tablet 100 mg PO Patient Comments: TAKE ONE TABLET BY MOUTH EVERY DAY adalimumab 40 mg/0.4 mL pen injector kit 40 mg SQ Q14D nicotine 21 mg/24 hr patch 24 hour 1 patch topical DAILY albuterol sulfate 90 mcg/actuation HFA aerosol inhaler 2 inh inhalation QID PRN (Reason: shortness of breath or wheezing) 90 Days Qty: 8.5 2RF prednisone 20 mg tablet See Rx Instructions .ROUTE .COMPLEX Qty: 60 0RF Dose Instruction: TAKE TWO TABLETS BY MOUTH EVERY DAY FOR FOURTEEN DAYS, followed by taking 1 tab daily FOR 14 DAYS, followed by taking ONE-HALF tablet daily FOR 14 DAYS. THEN discontinue Rx Instructions: TAKE TWO TABLETS BY MOUTH EVERY DAY FOR FOURTEEN DAYS, followed by taking 1 tab daily FOR 14 DAYS, followed by taking ONE-HALF tablet daily FOR 14 DAYS. THEN discontinue alprazolam 0.5 tablet 0.5 mg PO DAILYP PRN (Reason: Anxiety) omeprazole 40 MG capsule,delayed release(DR/EC) 40 mg PO DAILY Referrals Follow up/Referrals: Andreea Bernabe APRN [Primary Care Provider] - See instructions Activity Restrictions/Add. Instructions Additional Instructions/Restrictions: At this time it was felt you are safe to be discharged home. If new or worsening symptoms please do not hesitate to return the emergency department. Please take your medications as prescribed. Please follow-up with your lung doctor as discussed. Clinical Impressions Clinical Impression: Traumatic chest pain, Adenopathy, hilar Discharge ED Provider: Santana Solis General Adult HPI General Chief complaint: PAIN Stated complaint: AO 10/01 chest injury Time Seen by Provider: 10/09/23 06:54 Mode of Arrival: Family Vehicle Source of Information: Patient Limitations: No Limitations Description of Symptoms (Recalled from ER Triage Doc. by RN): 53 yo female presents with cc of left chest wall pain, that she states is also aggravated with movement;pt reports been seen in this ed last week for a lawnmower running over her and being worked up . Patient states she noticed after a few days, a sharp catching pain has prevented her from breathing adequately or easily. Denies fever. Denies n/v. History of Present Illness HPI narrative: Patient is a 53-year-old female with no pertinent past medical history who presents emergency department for evaluation of chest wall pain. Patient had a lawnmower rollover on her left shoulder and chest wall last week where she presented here and noncontrasted CT scan of the chest was performed which showed no acute pathology. Since then she has had worsening left-sided chest wall pain that is worsened with movement or deep inspiration. No abdominal pain, no back pain, no anticoagulants, no other acute complaints at this time. Related Data Home Medications Medication Instructions Recorded Confirmed omeprazole 40 mg capsule,delayed 40 mg PO DAILY Heartburn 04/29/17 08/05/23 release alprazolam 0.5 mg tablet 0.5 mg PO DAILYP PRN Anxiety 06/15/19 08/05/23 adalimumab 40 mg/0.4 mL 40 mg SQ Q14D 01/08/20 08/05/23 subcutaneous pen kit nicotine 21 mg/24 hr daily 1 patch topical DAILY 06/03/23 08/05/23 transdermal patch sertraline 25 mg tablet 100 mg PO 06/03/23 08/05/23 Previous Rx's Medication Instructions Recorded albuterol sulfate 90 mcg/actuation 2 inh inhalation QID PRN shortness 07/30/23 aerosol inhaler of breath or wheezing 90 days #8.5 grams prednisone 20 mg tablet See Rx Instructions .Route 10/08/23 .COMPLEX #60 tabs methocarbamol 500 mg tablet 1,000 mg (2 x 500 mg) PO Q8H 10/09/23 muscle spasm #24 tabs Allergies Allergy/AdvReac Type Severity Reaction Status Date / Time morphine [MORPHINE] Allergy Severe orbital Verified 10/02/23 17:45 edema Penicillins [PENICILLINS] Allergy Intermediate I-RASH Verified 10/02/23 17:45 PFSH [facility] Disclaimer: The information contained in this section may have been updated after the patient was seen, as this information can be updated by other users. Medical History (Updated 10/09/23 @ 10:30 by Santana Solis MD) Immunosuppressed status History of rheumatoid arthritis Dyspnea on exertion Mediastinal lymphadenopathy Hilar lymphadenopathy ILD (interstitial lung disease) Pulmonary emphysema Smoking greater than 30 pack years Cancer Anxiety GERD (gastroesophageal reflux disease) Surgical History History of arthroscopy of right shoulder Family History Other Cancer Diabetes Social History Smoking Status: Unknown if ever smoked second hand exposure: No alcohol intake: never substance use type: denies use current occupational status: employed Travel in the last 8 weeks: None household members: family housing: house current occupation: [employer] current occupational exposures/hazards: No caffeine: No ROS Obtained: Yes Systems reviewed as appropriate & no additional complaints except as documented Physical Exam General General appearance: alert and in no apparent distress Head Head exam: atraumatic and normocephalic Eye Eye exam: Present PERRL ENT ENT exam: Present mucous membranes moist Neck Neck exam: Present normal inspection Chest Chest inspection: Present normal inspection and symmetric chest wall rise Respiratory Respiratory exam: Present normal lung sounds bilaterally; Absent respiratory distress Cardiovascular Cardiovascular exam: Present normal rhythm and tachycardia Abdominal Exam Abdominal exam: Present soft; Absent tenderness Extremities Exam Extremities exam: Present normal inspection Neurological Exam Neurological exam: Present alert Psychiatric Psychiatric exam: Present normal affect Skin Skin exam: Present warm and dry Medical Decision Making Erik Inquiry Pt receiving controlled substance: No Vital Signs: 10/09/23 06:40 10/09/23 07:00 10/09/23 07:30 Temperature 98.2 F Temperature Source Oral Pulse Rate 86 80 Pulse Rate [Right Brachial] 105 H Respiratory Rate 16 18 Blood Pressure 156/90 H 182/104 H Blood Pressure [Right Arm] 160/84 H Blood Pressure Mean 109 129 Blood Pressure Mean [Right Arm] 109 Blood Pressure Source [Right Arm] Automatic Cuff Blood Pressure Position [Right Arm] Sitting 02 Sat by Pulse Oximetry 96 97 98 Oxygen Delivery Method Room Air Room Air Room Air 10/09/23 08:00 10/09/23 09:01 10/09/23 09:30 Temperature Temperature Source Pulse Rate 84 83 75 Pulse Rate [Right Brachial] Respiratory Rate Blood Pressure 171/88 H 130/71 124/74 Blood Pressure [Right Arm] Blood Pressure Mean 132 92 86 Blood Pressure Mean [Right Arm] Blood Pressure Source [Right Arm] Blood Pressure Position [Right Arm] 02 Sat by Pulse Oximetry 97 97 97 Oxygen Delivery Method Room Air Room Air Room Air Lab Data Lab Results 10/09/23 07:15: WBC 13.3 H, RBC 4.74, Hgb 14.4, Hct 44.2, MCV 93.2, MCH 30.3, MCHC 32.5, RDW 13.9, Plt Count 383, MPV 8.5, Neut % (Auto) 77.2, Lymph % (Auto) 17.0, [place] % (Auto) 4.6, Eos % (Auto) 0.6, Baso % (Auto) 0.7, Neut # (Auto) 10.3 H, Lymph # (Auto) 2.3, [place] # (Auto) 0.6, Eos # (Auto) 0.1, Baso # (Auto) 0.1, Sodium 139, Potassium 3.5, Chloride 104, Carbon Dioxide 25, Anion Gap 13.5, BUN 16, Creatinine 0.70, Estimated Creat Clear 127, Estimated GFR 87, Est GFR ( Amer) 105, Glucose 186 H, Calcium 9.7, Total Bilirubin 0.3, AST 37 H, ALT 37, Alkaline Phosphatase 66, Troponin I < 0.01, Total Protein 8.3 H, Albumin 4.3, Globulin 4.0 H, Albumin/Globulin Ratio 1.1 10/09/23 07:15 10/09/23 07:15 Orders (Tests/Meds): ED MEDICATIONS Discontinued Medications Generic Name Dose Route Start Last Admin Trade Name Alessandroq PRN Reason Stop Dose Admin Acetaminophen 1,000 mg 10/09/23 07:00 10/09/23 07:10 Acetaminophen 500mg Tab PO 10/09/23 07:01 1,000 mg ONCE ONE Administration Iopamidol 92 ml 10/09/23 08:33 10/09/23 08:34 Iopamidol-370 (76%);100ml Bottle IV 10/09/23 08:34 92 ml ONCE ONE Administration Methocarbamol 500 mg 10/09/23 07:00 10/09/23 07:12 Methocarbamol 500mg Tablet PO 10/09/23 07:01 500 mg ONCE ONE Administration Oxycodone HCl 5 mg 10/09/23 07:00 10/09/23 07:11 Oxycodone 5mg Immediate Release Tablet PO 10/09/23 07:01 5 mg ONCE ONE Administration Sodium Chloride 10 ml 10/09/23 08:33 10/09/23 08:34 Sodium Chloride 0.9% 10ml Syr (Rad Only) IV 06/15/24 08:34 10 ml ONCE ONE Administration Sodium Chloride 50 ml 10/09/23 08:33 10/09/23 08:34 0.9 % Sodium Chloride 50 Ml Vial IV 10/09/23 08:34 50 ml ONCE ONE Administration ORDERS Category Date Time Status CT angio chest - dissection Stat Cat Scan 10/09/23 07:00 Completed CBC w/Auto Diff [Complete Blood Count Auto Diff] Stat Lab 10/09/23 07:15 Completed CMP [Comprehensive Metabolic Panel] Stat Lab 10/09/23 07:15 Completed Trop I [Troponin I] Stat Lab 10/09/23 07:15 Completed Medical Decision Narrative: In summary patient is a 53-year-old female with past medical history described above who presents emergency department for evaluation of traumatic chest pain. Patient is hemodynamically stable nontoxic-appearing upon arrival, afebrile. Differential includes occult fracture from previous CT scan, hematoma, musculoskeletal strain, among others. Workup be conducted with hematologic labs, CTA chest. Initial inventions include Tylenol, oxycodone, methocarbamol. Workup reviewed by me, hematologic labs are nonactionable, nonspecific leukocytosis, no BERHANE or critical electrolyte abnormality initial troponin undetectably low. Chest CTA shows no evidence of pulmonary embolus, noted in the right hilum, mild bilateral groundglass opacities in the upper lobes and lower lobes which may represent contusions or atelectasis. Given that patient only had trauma over the left chest and symmetric I suspect atelectasis. Even if they were contusions she has no oxygen requirement no significant tachycardia or tachypnea and will undergo expectant management. Upon repeat evaluation patient was well-appearing and appropriate for discharge at this time. Critical Care Critical Care Time Critical Care Time: No
[2023-10-09] MEDS: ACETAMINOPHEN 500MG TAB 1000 MG PO (07:10)
[2023-10-09] MEDS: OXYCODONE 5MG IMMEDIATE RELEASE TABLET 5 MG PO (07:11)
[2023-10-09] MEDS: METHOCARBAMOL 500MG TABLET 500 MG PO (07:12)
[2023-10-09 07:38] LABS: Basophils # 0.1 K/mm3 (0-0.2); Basophils % 0.7 % (0.1-2.0); Eosinophils # 0.1 K/mm3 (0.0-0.4); Eosinophils % 0.6 % (0.1-12.0); Hematocrit 44.2 % (37.0-47.0); Hemoglobin 14.4 g/dL (12.2-16.2); Lymphocytes # 2.3 K/mm3 (0.7-4.5); Mean Corpuscular HGB Conc 32.5 g/dL (31.8-35.4); Mean Corpuscular Hemoglobin 30.3 pg (27.0-31.2); Mean Corpuscular Volume 93.2 fl (81-99); Mean Platelet Volume 8.5 fl (7.4-10.4); Monocytes # 0.6 K/mm3 (0.1-1.0); Monocytes % 4.6 % (1.7-9.3); Neutrophils # 10.3 K/mm3 (1.8-7.8); Neutrophils % 77.2 % (37.0-80.0); Platelet Count 383 K/mm3 (142-424); Red Blood Count 4.74 M/mm3 (4.20-5.40); Red Cell Distribution Width 13.9 % (11.5-17.5); White Blood Count 13.3 K/mm3 (4.8-10.8)
[2023-10-09 08:04] LABS: Chloride 104 mmol/L (98-107)
[2023-10-09 08:05] LABS: Potassium 3.5 mmoL/L (3.5-5.1); Sodium 139 mmol/L (136-145)
[2023-10-09 08:07] LABS: Alanine Aminotransferase 37 U/L (12-78); Alkaline Phosphatase 66 U/L (38-126); Anion Gap 13.5 mEq/L (5-15); Aspartate Amino Transferase 37 U/L (14-36); Bilirubin,Total 0.3 mg/dl (0.2-1.3); Blood Urea Nitrogen 16 mg/dl (7-17); Carbon Dioxide 25 mmol/L (22.0-30.0); Creatinine Clearance Estimated 127 mL/min (50-200); Estimated Glomerular Filt Rate 87 ml/min (>60); GFR (African American) 105 ML/MIN (>60)
[2023-10-09 08:08] LABS: Albumin Level 4.3 g/dl (3.5-5.0); Albumin/Globulin Ratio 1.1 (1.1-1.8); Calcium 9.7 mg/dl (8.4-10.2); Glucose 186 mg/dl (74-100); Total Protein,Serum 8.3 g/dl (6.3-8.2)
--- NOTE | 2023-10-09 08:20 | PC.NURSE ---
PT to CT by WC at this time
--- NOTE | 2023-10-09 08:30 | PC.NURSE ---
Pt back from CT
[2023-10-09] MEDS: SODIUM CHLORIDE 0.9% 10ML SYR (RAD ONLY) 10 ML IV (08:34)
[2023-10-09] MEDS: 0.9 % SODIUM CHLORIDE 50 ML VIAL IV (08:34)
[2023-10-09] MEDS: IOPAMIDOL-370 (76%);100ML BOTTLE 92 ML IV (08:34)
[2023-10-09 09:09] LABS: Troponin I < 0.01 ng/ml (0.00-0.034)
--- NOTE | 2023-10-09 09:14 | PC.NURSE ---
Rounded on pt, no new complaints. Let them know we are waiting on the CT results.
--- NOTE | 2023-10-09 09:25 | PC.NURSE ---
pt ambulated to bathroom
--- NOTE | 2023-10-09 10:04 | PC.NURSE ---
Called radiology to check staus of cta read. States it is assigned but not in reading yet. behavioral technician states she will chat with VRSHARON
--- NOTE | 2023-10-09 10:27 | PC.NURSE ---
Dr. Solis at [facility] to update pt on results
== END 2023-10-09 10:35 | disposition home or self-care (01) ==
PROVIDERS: Emergency Provider Emergency Medicine; PCP Nurse Practitioner Family
DX: R07.89 Other chest pain (principal); J98.11 Atelectasis; R59.0 Localized enlarged lymph nodes; Z87.39 Personal history of other diseases of the musculoskeletal system and connective tissue; D84.9 Immunodeficiency, unspecified; J43.9 Emphysema, unspecified; F17.210 Nicotine dependence, cigarettes, uncomplicated; K21.9 Gastro-esophageal reflux disease without esophagitis
CPT/HCPCS: 71275; 80053; 84484; 85025; 99284; Q9967

== ENCOUNTER 2024-02-04 12:41 | Outpatient (CLI) | payer MEDICARE, SELFPAY ==
--- NOTE | 2024-02-04 13:52 | CT_ITS ---
FINAL REPORT CLINICAL HISTORY: Shortness of air, lung nodules, follow-up COMPARISON: 10/09/2023, 10/02/2023 FINDINGS: CT CHEST HIGH RESOLUTION 1.[address] axial slices were performed through the chest at 10 mm intervals utilizing high-resolution protocol. Supine inspiration and expiration and prone inspiration high-resolution CT images were obtained.Coronal reformatted images were submitted. This study was performed with techniques to keep radiation doses as low as reasonably achievable (ALARA). Individualized dose reduction techniques using automated exposure control or adjustment of mA and/or kV according to the patient's size were employed. There is no axillary adenopathy. There is no mediastinal adenopathy. There is persistent right hilar fullness which represents persistent enlarged right hilar node. There are moderate left coronary artery calcifications. Heart size is normal. There is no pericardial or pleural effusion. There is a calcified granuloma in the left upper lobe. There are predominantly, peripheral groundglass opacities which are stable. There is no evidence of bronchiectasis or emphysema. There is no evidence of interstitial fibrosis. There is no evidence of air trapping on the expiration imaging. Limited images of the upper abdomen are fatty infiltration of the liver. The patient is status postcholecystectomy.. 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 No significant interstitial fibrosis. Reviewed, Interpreted and Dictated by Dav Hernandez III, MD Transcribed by Traci Brown Authenticated and [facility]
== END 2024-02-04 23:59 | disposition home or self-care (01) ==
LOC: RT 12:42
PROVIDERS: PCP Nurse Practitioner Family; Visit Provider Internal Medicine Pulmonary Disease
DX: J84.9 Interstitial pulmonary disease, unspecified (principal); R06.09 Other forms of dyspnea
CPT/HCPCS: 71250; 94060; 94618; 94726; 94729

== ENCOUNTER 2024-03-17 12:57 | Outpatient (CLI) | payer MEDICARE, SELFPAY ==
--- NOTE | 2024-03-17 12:57 | CT_ITS ---
FINAL REPORT TECHNIQUE: Axial images through the chest were performed by computed tomography. This study was performed with techniques to keep radiation doses as low as reasonably achievable, (ALARA). Individualized dose reduction techniques using automated exposure control or adjustment of mA and/or kV according to the patient's size were employed. CLINICAL HISTORY: ILD COMPARISON: 02/04/2024 FINDINGS: CT CHEST WITHOUT: There are mostly peripheral ground glass opacities present in the bilateral upper lobes and in the right base, which are stable when compared with the prior CT of January. A few small scattered mediastinal lymph nodes are noted, nonspecific. The heart size is normal. There is no pericardial or pleural effusion. There is diffuse fatty infiltration of the liver. The gallbladder has been surgically resected. IMPRESSION: Mostly peripheral ground glass opacities in the bilateral upper lobes in the right base, stable when compared to the prior CT of January. Reviewed, Interpreted and Dictated by Marciano Garcia MD Transcribed by Tari Leigh Authenticated and [facility]
== END 2024-03-17 23:59 | disposition home or self-care (01) ==
LOC: RAD 12:57
PROVIDERS: PCP Nurse Practitioner Family; Visit Provider Internal Medicine Pulmonary Disease
DX: R91.8 Other nonspecific abnormal finding of lung field (principal)
CPT/HCPCS: 71250

== ENCOUNTER 2024-04-03 11:10 | Day surgery (SDC) | payer MEDICARE, SELFPAY ==
[2024-03-31 11:44] VITALS: BMI 39.9
[2024-04-03] VITALS (9 sets, daily range): BP systolic 105–147; BP diastolic 71–103; PULSE 82–103; RESP 12–18; TEMP 36.1–36.4; O2SAT 89–97
[2024-04-03] MEDS: LACTATED RINGERS 1000ML 1,000 ML 25 ML IV (11:30)
--- NOTE | 2024-04-03 11:38 | EXP.ANES.CKL ---
[facility] Disclaimer: The information contained in this section may have been updated after the patient was seen, as this information can be updated by other users. Medical History Immunosuppressed status History of rheumatoid arthritis Dyspnea on exertion Mediastinal lymphadenopathy Hilar lymphadenopathy ILD (interstitial lung disease) Pulmonary emphysema Smoking greater than 30 pack years Cancer Anxiety GERD (gastroesophageal reflux disease) Surgical History History of History of arthroscopy of right shoulder Family History Other Cancer Diabetes Social History Smoking Status: Former smoker tobacco type: cigarettes packs per day: 1 second hand exposure: No alcohol intake: never substance use type: denies use current occupational status: employed Travel in the last 8 weeks: None household members: family housing: house current occupation: [employer] current occupational exposures/hazards: No caffeine: No [facility] Anesthesia Checklist Patient Identification Patient Identification: Verbal (Name & ) Structural Data Admitted From: Home Planned Operative Procedure/s: bronchoscopy Consent for Planned Operative Procedure(s) Verified: Yes NPO Status Verified Time NPO: 00:00 Additional verifications Anesthesia Reactions: Yes (PONV) Hx Blood Transfusions: No Blood Transfusion Reaction: No Airway Assessment Mallampati Score:: Class III C-Spine Mobility Assessed: Yes TMJ Mobility Assessed: Yes Dentition: Edentulous Neurological Assessment Level of Consciousness: Awake, Alert and Appropriate Anesthesia Plan Anesthesia Risk discussed: Yes Anesthesia Plan: Verified ASA Class: II Anesthesia Type: General
--- NOTE | 2024-04-03 12:56 | XR_ITS ---
FINAL REPORT CLINICAL HISTORY: BRONCH FLUORO 108.6 38.4 mGy FINDINGS: FLUORO TIME PROCEDURE: Fluoroscopy in the operating room. FINDINGS: Fluoroscopy time was provided by the radiology department for bronchoscopy 3 films were obtained. Fluoroscopy exposure time: 108 seconds. DAP: 38.4 mGy IMPRESSION: See operative report Reviewed, Interpreted and Dictated by Dav Hernandez III, MD Transcribed by Traci Brown Authenticated and . [facility]
--- NOTE | 2024-04-03 12:56 | EXP.BRONCH.N ---
Procedure: Date: 04/03/24 Patient Date of :: 1970 Procedure Performed:: Bronchoscopy airway examination, bronchoalveolar lavage and transbronchial lung biopsy: Indications:: Atypical Pneumonia ILD Performing Provider:: Fran Gonzalez MD Referring Provider:: Dr: Andreea Bernabe APRN Sedation:: General Anesthesia Procedure:: Bronchoscopy airway examination, bronchoalveolar lavage and transbronchial lung biopsy: A clean THEREPEAUTIC bronchoscopy was advanced through the ET tube and airways were examined up to subsegmental bronchi. Airways appeared grossly normal, no evidence of mucoid secretions, mucous plugging active bleeding/old blood clots noted. Bronchoalveolar lavage was performed in the RIGHT MIDDLE LOBE with instillation of 60 cc normal saline with return of 30 cc back. BAL fluid was sent for cell count and differential along with bacterial fungal and AFB stain and cultures. Transbronchial biopsy was performed in the RIGHT MIDDLE LOBE with a total of 7 biopsies performed, 5 biopsy specimens were sent in formalin for cytopathologic examination. The other 2 biopsy samples, were sent one each in two separate normal saline specimen cups for bacterial fungal and AFB stain cultures. Special request was also made for the pathologist to evaluate for AFB and fungal organisms on the cytopathologic examination. Patient tolerated the procedure with no immediate acute complications. We will follow the patient in pulmonary clinic in 7 to 10 days. Findings:: Please see the procedure note Recommendations:: Postoperative bronchoscopy instructions. Follow in pulmonary clinic 5 to 7 days. Complications:: No acute immediate complication Estimated blood obtained (mL): 2
--- NOTE | 2024-04-03 13:01 | P.PNANES_ITS ---
[facility] Anesthesia Record Part I Anesthesia Record I Intake, IV Amount: 400 Hydration: Adequate Estimated blood loss (mL): 5 Urine output (mL): 0 Blood Pressure: 131/72 SaO2: 93 Pulse Rate: 101 Airway Patency: Patent Respiratory Rate: 12 Temperature: 97.4 F Patient is:: Awake Stable to PACU at:: 12:58
--- NOTE | 2024-04-03 13:08 | XR_ITS ---
FINAL REPORT CLINICAL HISTORY: post bronch COMPARISON: 02/13/2022 FINDINGS: A single portable view of the chest was obtained. The heart size and pulmonary vascularity are within normal limits. The mediastinum is within normal limits. There is a mild right midlung opacity. There is no evidence of pneumothorax. IMPRESSION: Right midlung opacity without pneumothorax.. Reviewed, Interpreted and Dictated by Dav Hernandez III, MD Transcribed by Alix Rios Authenticated and [facility]
--- NOTE | 2024-04-10 09:58 | EXP.ANES.II ---
[facility] Anesthesia Record Part II Anesthesia Record Part II Discharge Time: 13:58 Destination: Surgical Day Care (OP Surgery) PACU nurse assessment reviewed?: Yes Patient Condition:: Good Anesthesia Complications:: None Swallowing reflex intact?: Yes Airway Patency: Patent Cyanosis?: No Blood Pressure: 123/86 SaO2: 97 Respiratory Rate: 16 Pulse Rate: 92 Temperature: 97.5 F Mental Status: Alert & Oriented Pain level:: 0 Nausea and/or vomitting:: None Intake, IV Amount: 0 Hydration: Adequate
[2024-04-10 09:59] VITALS: BP 123/86; PULSE 92; RESP 16; TEMP 36.4; O2SAT 97
== END 2024-04-03 13:58 | disposition home or self-care (01) ==
PROVIDERS: PCP Nurse Practitioner Family; Visit Provider Internal Medicine Pulmonary Disease
PROC: (CPT 31624; principal; 2024-04-03 12:45)
DX: J18.9 Pneumonia, unspecified organism (principal); F17.210 Nicotine dependence, cigarettes, uncomplicated; Z79.899 Other long term (current) drug therapy; D84.9 Immunodeficiency, unspecified; J84.9 Interstitial pulmonary disease, unspecified; R59.0 Localized enlarged lymph nodes; J43.9 Emphysema, unspecified
CPT/HCPCS: 31624; 31628; 71045; 76000; 87070; 87102; 87116; 87186; 87205; 87206; 88112; 88305; 89051; J3490; J1100; J2250; J2405; J3010; J7120

== ENCOUNTER 2024-07-07 15:26 | Outpatient (CLI) | payer MEDICARE, SELFPAY ==
[2024-07-07 15:43] LABS: Basophils # 0.1 K/mm3 (0-0.2); Eosinophils # 0.1 K/mm3 (0.0-0.4); Eosinophils % 1.9 % (0.1-12.0); Hematocrit 43.3 % (37.0-47.0); Hemoglobin 14.6 g/dL (12.2-16.2); Lymphocytes % 31.9 % (10-50); Mean Corpuscular HGB Conc 33.7 g/dL (31.8-35.4); Mean Corpuscular Hemoglobin 29.4 pg (27.0-31.2); Mean Corpuscular Volume 87.1 fl (81-99); Mean Platelet Volume 9.9 fl (7.4-10.4); Monocytes # 0.5 K/mm3 (0.1-1.0); Monocytes % 8.8 % (1.7-9.3); Neutrophils # 3.5 K/mm3 (1.8-7.8); Neutrophils % 56.2 % (37.0-80.0); Platelet Count 314 K/mm3 (142-424); Red Blood Count 4.97 M/mm3 (4.20-5.40); Red Cell Distribution Width 12.7 % (11.5-17.5); White Blood Count 6.2 K/mm3 (4.8-10.8)
[2024-07-07 16:07] LABS: Erythrocyte Sedimentation Rate 22 mm/hr (0-30)
[2024-07-07 16:25] LABS: Alanine Aminotransferase 26 U/L (12-78); Albumin Level 4.4 g/dl (3.5-5.0); Albumin/Globulin Ratio 1.4 (1.1-1.8); Alkaline Phosphatase 79 U/L (38-126); Anion Gap 11.2 mEq/L (5-15); Aspartate Amino Transferase 28 U/L (14-36); Bilirubin,Total 0.3 mg/dl (0.2-1.3); Blood Urea Nitrogen 8 mg/dl (7-17); Calcium 9.6 mg/dl (8.4-10.2); Carbon Dioxide 27 mmol/L (22.0-30.0); Chloride 104 mmol/L (98-107); Estimated Glomerular Filt Rate 87 ml/min (>60); GFR (African American) 105 ML/MIN (>60); Globulin 3.2 g/dL (1.3-3.2); Glucose 125 mg/dl (74-100); Potassium 4.2 mmoL/L (3.5-5.1); Sodium 138 mmol/L (136-145); Total Protein,Serum 7.6 g/dl (6.3-8.2)
[2024-07-07 16:31] LABS: C-Reactive Protein 13.5 mg/L (0-4)
== END 2024-07-07 23:59 | disposition home or self-care (01) ==
LOC: LAB 15:27
PROVIDERS: PCP Nurse Practitioner Family; Visit Provider Internal Medicine Rheumatology
DX: Z79.899 Other long term (current) drug therapy (principal)
CPT/HCPCS: 36415; 80053; 85025; 85651; 86140

== ENCOUNTER 2024-07-13 12:46 | Outpatient (CLI) | payer MEDICARE, SELFPAY ==
[2024-07-13] MEDS: ALBUTEROL 0.083% 2.5 MG/3 ML NEB IH (14:40)
== END 2024-07-13 23:59 | disposition home or self-care (01) ==
LOC: RT 12:47
PROVIDERS: PCP Nurse Practitioner Family; Visit Provider Internal Medicine Pulmonary Disease
DX: R06.09 Other forms of dyspnea (principal)
CPT/HCPCS: 94060; 94618; 94726; 94729; J7613

== ENCOUNTER 2024-07-17 16:16 | Outpatient (CLI) | payer MEDICARE, SELFPAY ==
--- NOTE | 2024-07-17 16:18 | MM_ITS ---
PROCEDURE INFORMATION: Exam: MG Bilateral Screening 3D Mammography Exam date and time: 07/17/2024 4:29 PM Age: 54 years old Clinical indication: Screening examination TECHNIQUE: Imaging protocol: Bilateral Screening tomosynthesis and 2D mammography including computer-aided detection (CAD) when performed. COMPARISON: 1. MG MM DIG SCREENING MAMM BI W/CAD 10/30/2022 1:30 PM 2. MG DMSB DIG MAMM-SCREEN DEIDRA W/CAD 02/05/2017 9:43 AM FINDINGS: MAMMOGRAPHY: Breast composition: There are scattered areas of fibroglandular density. Mass: None. Architectural distortion: None. Calcifications: No suspicious calcifications. Asymmetric density: None. Skin thickening: None. Axillary adenopathy: None. IMPRESSION: No mammographic evidence of malignancy. Annual screening is recommended unless otherwise clinically indicated. ASSESSMENT: BI-RADS Category 1: Negative.
== END 2024-07-17 23:59 | disposition home or self-care (01) ==
LOC: RAD 16:17
PROVIDERS: PCP Nurse Practitioner Family; Visit Provider Nurse Practitioner Family
DX: Z12.31 Encounter for screening mammogram for malignant neoplasm of breast (principal)
CPT/HCPCS: 77063; 77067

== ENCOUNTER 2024-11-22 14:51 | Outpatient (CLI) | payer MEDICARE, SELFPAY ==
--- OUTSIDE RECORDS SUMMARY | 2024-11-06 15:30 | XMS_ITS | Encounter Summary ---
[facility] Address [address] [place] [address] Care Team Providers Care Records Administrator Name Role Phone Andreea Bernabe APRN Primary Care Provid er Reason for Referral * Diagnostic Imaging (Routine) - Authorized Specialty Diagnoses / Procedures Referred By Sage t Referred To Contact Radiology Diagnoses Post-menopausal Procedures DEXA Bone Density Axial Anum Leavitt APRN [address] [address] Phone: tel: fax: [facility] DEXA [address] [address] Phone: tel: fax: Referral ID Status Reason Start Date Expiration Date V isits Requested Visits Authorized [id number] Authorized 11/06/2024 02/05/2026 1 1 Reason for Visit * Reason Comments Rheumatoid arthritis involving multiple sites with positive Encounter Details Date Type Department Care Team (Late st Contact Info) Description 11/06/2024 3:30 PM EDT Office Visit [facility] [address] [phone] Anum Leavitt APRN [address] [phone] Rheumatoid arthritis involving multiple sites with positive rheumatoid factor (Primary Dx); Immunosuppression due to drug therapy; High risk medication use; History of melanoma; Posterior tibial tendinitis of right lower extremity; Fibromyalgia; Tobacco use; Chronic fatigue; Post-menopausal Social History Tobacco Use Types Packs/Day Years Used Date Smoking Tobacco: Never Passive Smoke Exposure: Never Smokeless Tobacco: Never Alcohol Use Standard Drinks/Week Comments Never 0 (1 standard drink = 0.6 oz pur e alcohol) Comments Unknown Sex and Gender Information Value Date Recorded Sex Assigned at Not on file Legal Sex Female 8:38 AM EDT Gender Identity Not on file Sexual Orientation Not on file documented as of this encounter Last Filed Vital Signs Vital Sign Reading Time Taken Comments Blood Pressure 100/74 11/06/2024 3:21 PM EDT Pulse 84 11/06/2024 3:21 PM EDT Temperature 36.2 C (97.2 F) 11/06/2024 3:21 PM EDT Respiratory Rate - - Oxygen Saturation - - Inhaled Oxygen Concentration - - Weight 86.1 kg (189 lb 12.8 oz) 11/06/2024 3:21 PM EDT Height 149.9 cm (4' 11 ) 11/06/2024 3:21 PM EDT Body Mass Index 38.33 11/06/2024 3:21 PM EDT documented in this encounter Progress Notes * LeavittAnum APRN - 11/06/2024 3:30 PM EDTAssociated Problem(s): Rheumatoid arthritis Acute onset 11/10 with pain and swelling in the hands. Second recurrence 12/11, both resolved with steroids. * Rheumatoid factor positive with negative CCP antibody and negative JOSEPH. Uric acid 3.5. CURRENT MEDS: Humira 09/12. FAILED MEDS: Plaquenil (started 02/10, stopped due to cost), Arava (04/2019 GI side effects) MTX stopped per pt choice.. RA appears to be doing well. Tender joint count is 0, swollen joint count is 0 , physician global is 0 , visual analog pain scale is 8, pt global is 8. CDAI is 8-low disease activity. Prognosis is good. Labs ordered Continue Humira. Pulmonology records reviewed. Most recent CT scan without noted change to prior. Pulmonology suspicion of RA ILD which is seemingly stable currently. Discussed with Dr. Maya-sravan to continue Humira as long as pulmonology feels she is stable. If she has any worsening of disease we will plan to switch her to possibly rituximab or Abatacept. RTC 3 mo * Anum Leavitt APRN - 11/06/2024 3:30 PM EDTAssociated Problem(s): Immunosuppression due to drug therapy Humira. Tolerating well No recent infections. * Anum Leavitt APRN - 11/06/2024 3:30 PM EDTAssociated Problem(s): High risk medication use Methotrexate stopped. She flared after stopping and Dr. Maya previously suggested she restart at low-dose but she declined. * Anum Leavitt APRN - 11/06/2024 3:30 PM EDTAssociated Problem(s): History of melanoma In remission. * Anum Leavitt APRN - 11/06/2024 3:30 PM EDTAssociated Problem(s): Posterior tibial tendinitis of right lower extremity Improved . * Anum Leavitt APRN - 11/06/2024 3:30 PM EDT Images from the original note were not included. Office Follow Up Date: 11/06/2024 Patient Name: Magdy Moreno Date of : 1970 Referring Physician: No ref. provider found Chief Complaint: Rheumatoid arthritis History of Present Illness: Magdy Moreno is a 54 y.o. female who is here today for follow up on rheumatoid arthritis. 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 We Prescribe Humira She Tolerates Humira well. No infections. No problems with injections. Seeing pulmonary. Was on high dose prednisone. Off now. Not clear if dx COPD or RA lung. Subjective Review of Systems: Review of Systems Constitutional: Positive for fatigue. Eyes: Positive for blurred vision, photophobia and itching. Dry eyes Respiratory: Positive for shortness of breath and stridor. Musculoskeletal: Positive for arthralgias, back pain and joint swelling. Allergic/Immunologic: Positive for environmental allergies. Medications: Current Outpatient Medications: Adalimumab (Humira, 2 Pen,) 40 MG/0.4ML Auto-injector Kit, Inject 40 mg under the skin into the appropriate area as directed Every 14 (Fourteen) Days., Disp: 2 each, Rfl: 3 albuterol sulfate HFA 108 (90 Base) MCG/ACT inhaler, INHALE TWO PUFFS BY MOUTH FOUR TIMES DAILY NEEDED FOR SHORTNESS OF BREATH OR wheezing, Disp: , Rfl: ALPRAZolam (XANAX) 0.5 MG tablet, Take 1 tablet by mouth 2 (Two) Times a Day As Needed for Anxiety., Disp: , Rfl: buPROPion XL (WELLBUTRIN XL) 150 MG 24 hr tablet, Take 1 tablet by mouth Daily., Disp: , Rfl: metFORMIN ER (GLUCOPHAGE-XR) 500 MG 24 hr tablet, Take 1 tablet by mouth Daily., Disp: , Rfl: omeprazole (priLOSEC) 40 MG capsule, Take 1 capsule by mouth Daily. Take before a meal, Disp: , Rfl: sertraline (ZOLOFT) 100 MG tablet, Take 1 tablet by mouth Daily., Disp: , Rfl: Allergies: Allergies Allergen Reactions Morphine Provider Review Needed Penicillins Provider Review Needed I have reviewed and updated the patient's chief complaint, history of present illness, review of systems, past medical history, surgical history, family history, social history, medications and allergy list as appropriate. Objective Vital Signs: Vitals: 11/06/24 1521 BP: 100/74 BP Location: Left arm Patient Position: Sitting Cuff Size: Adult Pulse: 84 Temp: 97.2 ??F (36.2 ??C) Weight: 86.1 kg (189 lb 12.8 oz) Height: 149.9 cm (59 ) PainSc: 8 PainLoc: Generalized Comment: hip, lower back and finger Body mass index is 38.33 kg/m??. Physical Exam: GEN.: The patient is pleasant, cooperative, well-developed and healthy- appearing. The patient is inno obvious distress and is alert and oriented ??3. HEENT: Normocephalic and atraumatic. No alopecia. No facial rash. Sclera and conjunctiva are clear.Pupils are equal and reactive. There are no oral or nasal lesions seen. NECK: Supple without adenopathy or thyromegaly. No masses are felt. LUNGS: Clear to auscultation and percussion. Effort is normal. Slightly decreased breath sounds. CARDIAC: Normal S1 and S2 with a regular rate and rhythm . ABDOMEN: Deferred EXTREMITIES: There is no cyanosis, clubbing, or edema. SKIN: No rashes. Skin warm, intact, dry. JOINTS: There is full range of motion of the shoulders, elbows, wrists, and hands without soft tissue swelling, synovitis, or deformities. RA nodule below left elbow. Wrists have no soft tissue swelling or tenderness. Hips have good flexion and internal and external rotation without pain. Knees have no palpable effusions. Ankles have no soft tissue swelling, synovitis, or significant deformities. BACK: Straight without scoliosis. NEUROLOGIC: Gait and station are normal. Joint Exam 11/06/2024 No joint exam has been documented for this visit Patient Global: -- Provider Global: -- There is currently no information documented on the homunculus. Go to the Rheumatology activity andcomplete the homunculus joint exam. Assessment / Plan Assessment & Plan Rheumatoid arthritis involving multiple sites with positive rheumatoid factor Acute onset 11/10 with pain and swelling in the hands. Second recurrence 12/11, both resolved with steroids. * Rheumatoid factor positive with negative CCP antibody and negative JOSEPH. Uric acid 3.5. CURRENT MEDS: Humira 09/12. FAILED MEDS: Plaquenil (started 02/10, stopped due to cost), Arava (04/2019 GI side effects) MTX stopped per pt choice.. RA appears to be doing well. Tender joint count is 0, swollen joint count is 0 , physician global is 0 , visual analog pain scale is 8, pt global is 8. CDAI is 8-low disease activity. Prognosis is good. Labs ordered Continue Humira. Pulmonology records reviewed. Most recent CT scan without noted change to prior. Pulmonology suspicion of RA ILD which is seemingly stable currently. Discussed with Dr. Vargas to continue Humira as long as pulmonology feels she is stable. If she has any worsening of disease we will plan to switch her to possibly rituximab or Abatacept. RTC 3 mo Immunosuppression due to drug therapy Humira. Tolerating well No recent infections. High risk medication use Methotrexate stopped. She flared after stopping and Dr. Maya previously suggested she restart at low-dose but she declined. History of melanoma In remission. Posterior tibial tendinitis of right lower extremity Improved . Fibromyalgia She has chronic joint and soft tissue pain. 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 Maya . Tobacco use She has stopped cigarettes and now is vaping very seldomly Chronic fatigue Post-menopausal DEXA ordered - Partial Hysterectomy 16years ago Previous alf steroid use RA dx. Orders Placed This Encounter Procedures DEXA Bone Density Axial Comprehensive Metabolic Panel Sedimentation Rate CBC (No Diff) C-reactive Protein QuantiFERON-TB Gold Plus (Li-Hep) QuantiFERON TB Gold (Kit Test) TIME SPENT: I spent 42 minutes caring for the patient on this date of service. This time includes time spent by me in the following activities: Preparing for the visit, obtaining records, reviewing/ordering tests and independently reviewing results, performing a medically appropriate history/exam, counseling and educating the patient/family/caregiver, ordering medications, tests, or procedures, and documenting information in the medical record. 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 Anum Leavitt APRN [facility] [place] documented in this encounter Plan of Treatment Upcoming Encounters Date Type Department Care Team (Late st Contact Info) Description 02/12/2025 1:30 PM EDT Appointment [facility] DEXA [address] [phone] 02/12/2025 2:00 PM EDT Office Visit [facility] [address] [phone] Anum Leavitt APRN [address] [phone] 05/09/2025 2:30 PM EST Office Visit [facility] [address] [phone] Roman Maya MD [address] [phone] Scheduled Orders Name Type Priority Associated Diagnoses Orde r Schedule DEXA Bone Density Axial Imaging Routine Post-menopausal Expected: 11/11/2024, Expires: 11/06/2025 documented as of this encounter Goals Goal Patient Goal Type Associated Problems Recent Progress Patient-Stated? Author Specialty Pharmacy General Goal General No Paulino Conley, AlyceD Note: Reduce number of flares and pain score. documented as of this encounter Procedures Procedure Name Priority Date/Time Associated Diagnosis Comments QUANTIFERON TB GOLD PLUS (KIT TEST) Routine 11/06/2024 4:36 PM EDT C-REACTIVE PROTEIN Routine 11/06/2024 4: 36 PM EDT Rheumatoid arthritis involving multiple sites with positive rheumatoid factor SEDIMENTATION RATE Routine 11/06/2024 4: 34 PM EDT Rheumatoid arthritis involving multiple sites with positive rheumatoid factor CBC (NO DIFF) Routine 11/06/2024 4:34 PM EDT Rheumatoid arthritis involving multiple sites with positive rheumatoid factor COMPREHENSIVE METABOLIC PANEL Routine 11/06/2024 4:34 PM EDT Rheumatoid arthritis involving multiple sites with positive rheumatoid factor documented in this encounter Results * QuantiFERON TB Gold (Kit Test) (11/06/2024 4:36 PM EDT) Pathologist [facility] QuantiFERON Incubation Incubation performed. [facility] QuantiFERON Criteria Comment [facility] Comment: QuantiFERON-TB Gold Plus is a qualitative indirect test for M tuberculosis infection (including disease) and is intended for use in conjunction with risk assessment, radiography, and other medical and diagnostic evaluations. The QuantiFERON-TB Gold Plus result is determined by subtracting the Nil value from either TB antigen (Ag) value. The Mitogen tube serves as a control for the test. QUANTIFERON TB1 AG VALUE 0.02 IU/mL [facility] QUANTIFERON TB2 AG VALUE 0.01 IU/mL [facility] QuantiFERON Nil Value 0.01 IU/mL [facility] QuantiFERON Mitogen Value >10.00 IU/mL [facility] QUANTIFERON-TB GOLD PLUS Negative Negative [facility] Comment: No response to M tuberculosis antigens detected. Infection with M tuberculosis is unlikely, but high risk individuals should be considered for additional testing (ATS/IDSA/CDC Clinical Practice Guidelines, 2017). The reference range is an Antigen minus Nil result of <0.35 IU/mL. Chemiluminescence immunoassay methodology 11/06/2024 4:36 PM EDT 11/06/2024 Narrative [facility] ([facility]) - 11/08/2024 6:07 PM EDT Performed at: [address] [place] [id number] Customer Support Professional: True Alvarado PhD, Phone: [phone] Patient Fasting: N us Anum Leavitt C UNIX DEVELOPER LAB BLOOD ORDERABLES Final Result Performing Organization Address City/[facility]/ZIP Co de Phone Number [facility] (AMBULATORY) [address] [place] [address], [facility] [address] [place] [address], * (ABNORMAL) C-reactive Protein (11/06/2024 4:36 PM EDT) [facility] C-Reactive Protein 12(H) 0 - 10 mg/L [facility] Blood 11/06/2024 4:36 PM EDT 11/06/2024 Narrative [facility]) - 11/08/2024 6:07 PM EDT Performed at: - [facility] [address] [place] [id number] Customer Support Professional: True Alvarado PhD, Phone: [phone] Patient Fasting: N Anum Leavitt C UNIX DEVELOPER LAB BLOOD ORDERABLES Final Result Performing Organization Address [facility]/ZIP Co de Phone Number [facility] (AMBULATORY) [address] [place] [address], [facility] [address] [place] [address], * (ABNORMAL) CBC (No Diff) (11/06/2024 4:34 PM EDT) [facility] WBC 6.5 3.4 - 10.8 x10E3/uL [facility] RBC 4.96 3.77 - 5.28 x10E6/uL [facility] Hemoglobin 14.2 11.1 - 15.9 g/dL [facility] Hematocrit 45.4 34.0 - 46.6 % [facility] MCV 92 79 - 97 fL [facility] MCH 28.6 26.6 - 33.0 pg [facility] MCHC 31.3(L) 31.5 - 35.7 g/dL [facility] RDW 13.0 11.7 - 15.4 % [facility] Platelets 351 150 - 450 x10E3/uL [facility] Blood 11/06/2024 4:34 PM EDT 11/06/2024 Narrative [facility] ([facility]) - 11/07/2024 6:06 AM EDT [facility]formed at: - [facility] [address] [place] [id number] Customer Support Professional: True Alvarado PhD, Phone: [phone] Patient Fasting: N Anum Leavitt APRN LAB BLOOD ORDERABLES Final Result Performing Organization Address [facility] Co de Phone Number [facility] [address] [place] [address], [place] [phone] [facility] [address] [place] [address], [place] [phone] * (ABNORMAL) Sedimentation Rate (11/06/2024 4:34 PM EDT) Sed Rate 52(H) 0 - 40 mm/hr [facility] Blood 11/06/2024 4:34 PM EDT 11/06/2024 Narrative [facility] (AMBULATORY) - 11/07/2024 6:06 AM EDT Performed at: - [address] [id number] Customer Support Professional: True Alvarado PhD, Phone: [phone] Patient Fasting: N Anum Leavitt APRN LAB BLOOD ORDERABLES Final Result Performing Organization Address City/[facility]/ZIP Co de Phone Number [facility] [address] [place] [address], [place] [phone] [facility] [address] [place] [address], [place] [phone] * Comprehensive Metabolic Panel (11/06/2024 4:34 PM EDT) Glucose 73 70 - 99 mg/dL [facility] BUN 14 6 - 24 mg/dL [facility] Creatinine 0.82 0.57 - 1.00 mg/dL [facility] EGFR Result 84 >59 mL/min/1.7 3 [facility] BUN/Creatinine Ratio 17 9 - 23 [facility] Sodium 138 134 - 144 mmol/L [facility] Potassium 4.9 3.5 - 5.2 mmol/L [facility] Chloride 99 96 - 106 mmol/L [facility] Total CO2 26 20 - 29 mmol/L [facility] Calcium 9.7 8.7 - 10.2 mg/dL [facility] Total Protein 8.1 6.0 - 8.5 g/dL [facility] Albumin 4.4 3.8 - 4.9 g/dL [facility] Globulin 3.7 1.5 - 4.5 g/dL [facility] Total Bilirubin 0.2 0.0 - 1.2 mg/dL [facility] Alkaline Phosphatase 83 44 - 121 IU/L [facility] AST (SGOT) 18 0 - 40 IU/L [facility] ALT (SGPT) 18 0 - 32 IU/L [facility] Blood 11/06/2024 4:34 PM EDT 11/06/2024 Narrative [facility] ([facility]) - 11/07/2024 6:06 AM EDT Performed at: [address] [id number] Customer Support Professional: True Alvarado PhD, Phone: [phone] Patient Fasting: N us Anum Leavitt APRN LAB BLOOD ORDERABLES Final Result Performing Organization Address City/State/[facility] Co de Phone Number [facility] (AMBULATORY) [address] [place] [phone], [facility] [address] [place] [address], documented in this encounter Visit Diagnoses Diagnosis Rheumatoid arthritis involving multiple sites with positive rheumatoid factor- Primary Immunosuppression due to drug therapy High risk medication use History of melanoma Personal history of malignant melanoma of skin Posterior tibial tendinitis of right lower extremity Fibromyalgia Unspecified myalgia and myositis Tobacco use Chronic fatigue Other malaise and fatigue Post-menopausal Asymptomatic postmenopausal status (age-related) (natural) documented in this encounter Care Teams Records Administrator Relationship Specialty Start Date End Date Andreea Bernabe APRN [address] [place] [address] PCP - General Family Medicine 12/10/23 documented as of this encounter
[2024-11-22 13:40] VITALS: PULSE 71; PULSE 76
[2024-11-22] MEDS: ALBUTEROL 0.083% 2.5 MG/3 ML NEB IH (13:40)
--- OUTSIDE RECORDS SUMMARY | 2024-11-22 14:55 | XMS_ITS ---
Author Organization [facility] Address [address] [place] [address] Care Team Providers Care Hotel Receptionist Name Role Phone Andreea Bernabe APRN Primary Care Provid er Rheumatology Status:Enrolled (Active) Start date:01/04/2024 Enrollment date:01/04/2024 Enrollment reason:Converted fill to Current support & services provided:Clinical Assessment, Refill Coordination , Benefits Investigation, [facility] Dispensing , In-person/Telemed Visit Required Linked medications:Adalimumab (Active) Linked problems:Rheumatoid arthritis (Active) Case Team Name Relationship Phone Sandy Puckett Near [place] Archeology Professor Curve Cleaner Continued Care and Services Coordination
--- OUTSIDE RECORDS SUMMARY | 2024-11-22 14:55 | XMS_ITS | Encounter Summary ---
Author Organization [facility] Address [address] [place] [address] Care Team Providers Care Motorcycle Mechanic Name Role Phone Andreea Bernabe ORAL COMMUNICATION INSTRUCTOR Primary Care Provid er Encounter Details Date Type Department Care Team (Late Contact Info) Description 11/09/2024 Results Follow-Up [facility] RHEUMATOLOGY [address] [phone] Anum Leavitt APRN [address] [address] Social History Tobacco Use Types Packs/Day Years [...] on file documented as of this encounter Plan of Treatment Upcoming Encounters Date Type Department Care Team (Late st Contact Info) Description 02/12/2025 1:30 PM EDT Appointment [facility] RHEUMATOLOG[facility] DEXA [address] [address] 02/12/2025 2:00 PM EDT Office Visit [facility] [address] [phone] Anum Leavitt APRN 330 [facility] [address] [place] [address] 05/09/2025 2:30 PM EST Office Visit [facility] RHE[facility] [address] [phone] Roman Maya MD 330 [facility] 100 [place], [place] [phone] documented as of this encounter Goals Goal Patient Goal Type Associated Problems Recent Progress Patient-Stated? Author Specialty Pharmacy General Goal General No Paulino Conley, PharmD Note: Reduce number of flares and pain score. documented as of this encounter Visit Diagnoses Not on filedocumented in this encounter Care Teams Motorcycle Mechanic Relationship Specialty Start Date End Date Andreea Bernabe, TISHA 1210 [facility] [address] [facility] [address] [place] [address] PCP - General Family Medicine 12/10/23 documented as of this encounter
--- OUTSIDE RECORDS SUMMARY | 2024-11-22 14:55 | XMS_ITS ---
Author Organization [facility] Address [address] [place] [address] Care Team Providers Care Roller Coaster Operator Name Role Phone Andreea Bernabe APRN Primary Care Provid er Rheumatology - External Fill Status:Disenrolled (Closed) Start date:01/04/2024 Enrollment date:01/04/2024 End date:10/04/2024 Close reason:Patient preference Linked medications:Adalimumab (Active) Linked problems:Rheumatoid arthritis (Active) Continued Care and Services Coordination
--- OUTSIDE RECORDS SUMMARY | 2024-11-22 14:55 | XMS_ITS | Clinical Summary ---
Author Organization [facility] Address [address] [place] [address] Care Team Providers Care Digital Advertising Analyst Name Role Phone Unavailable Primary Care Provider Unavailabl e Social History Tobacco Use Types Packs/Day Years Used Date Smoking Tobacco: Never Assessed Comments Unknown Sex and Gender Information Value Date Recorded Sex Assigned at Not on file Legal Sex Female 8:21 PM EDT Gender Identity Not on file Sexual Orientation Not on file Plan of Treatment Not on [place] [address] [facility] MEDICARE
--- OUTSIDE RECORDS SUMMARY | 2024-11-22 14:55 | XMS_ITS | Encounter Summary ---
Author Organization [facility] Address [address] [place] [address] Care Team Providers Care Machine Tool Electrician Name Role Phone Andreea Bernabe LAMINATED PLASTICS ASSEMBLER AND GLUER Primary Care Provid er Encounter Details Date Type Department Care Team (Late Contact Info) Description 10/30/2024 Telephone [facility] RHEUMATOLOGY [address] [phone] Harriett Rosario, Web Content Executive Social History Tobacco Use Types Packs/Day Years [...] on file documented as of this encounter Miscellaneous Notes * Telephone Encounter - Harriett Rosario, Web Content Executive - 10/30/2024 3:03 PM EDT Prior authorization initiated by [facility]. Update will be provided when a determination has been received. Medication: Humira PA Submission Method: CMM Case Number/CMM Baptiste: [id number] documented in this encounter Plan of Treatment Upcoming Encounters Date Type Department Care Team (Late st Contact Info) Description 02/12/2025 1:30 PM EDT Appointment [facility] RHEUMATOLOGY DEXA [address] [phone] 02/12/2025 2:00 PM EDT Office Visit [facility]HE[facility] [address] [phone] Anum Leavitt APRN [address] [id number] 05/09/2025 2:30 PM EST Office Visit [facility] RHEUM[facility] [address] [phone] Roman Maya MD [address] [phone] documented as of this encounter Goals Goal Patient Goal Type Associated Problems Recent Progress Patient-Stated? Author Specialty Pharmacy General Goal General Paulino Lr, PharmD Note: Reduce number of flares and pain score. documented as of this encounter Visit Diagnoses Not on filedocumented in this encounter Care Teams Machine Tool Electrician Relationship Specialty Start Date End Date Andreea Bernabe APRN 1210 [facility] [address] [place] [address] PCP - General Family Medicine 12/10/23 documented as of this encounter
--- OUTSIDE RECORDS SUMMARY | 2024-11-22 14:55 | XMS_ITS | Encounter Summary ---
Author Organization [facility] Address [address] [place] [address] Care Team Providers Care Foundry Equipment Mechanic Name Role Phone Andreea Bernabe TISHA Primary Care Provid er Encounter Details Date Type Department Care Team (Latest Contact Info) Description 11/06/2024 Travel Social History Tobacco Use Types Packs/Day Years [...] Info) Description 02/12/2025 1:30 PM EDT Appointment [facility] RHEUMATOLOGY DEXA [address] [address] 02/12/2025 2:00 PM EDT Office Visit [facility] 330 [facility] [address] [phone] Anum Leavitt APRN [address] [address] 05/09/2025 2:30 PM EST Office Visit [facility] [address] [phone] Roman Maya MD [address] [facility] [address] [place], [place] [phone] documented as of this encounter Goals Goal Patient Goal Type Associated Problems Recent Progress Patient-Stated? Author Specialty Pharmacy General Goal General No Paulino Conley, AlyceD Note: Reduce number of flares and pain score. documented as of this encounter Visit Diagnoses Not on filedocumented in this encounter Care Teams Foundry Equipment Mechanic Relationship Specialty Start Date End Date Andreea Bernabe APRN 1210 [facility] [address] [place] [address] PCP - General Family Medicine 12/10/23 documented as of this encounter
--- OUTSIDE RECORDS SUMMARY | 2024-11-22 14:55 | XMS_ITS | Encounter Summary ---
Author Organization [facility] Address [address] [place] [address] Care Team Providers Care Poultry Buyer Name Role Phone Andreea Bernabe TISHA Primary Care Provid er Encounter Details Date Type Department Care Team (Late st Contact Info) Description 11/06/2024 Telephone [facility] RHEUMATOLOGY 330 [facility] 100 [place] [address] Anum Leavitt APRN [address] [address] Social History Tobacco Use Types [...] encounter Miscellaneous Notes * Telephone Encounter - Anum Leavitt APRN - 11/07/2024 2:39 PM EDT Opened in error documented in this encounter Plan of Treatment Upcoming Encounters Date Type Department Care Team (Late st Contact Info) Description 02/12/2025 1:30 PM EDT Appointment [facility] RHEUMATOLOGY DEXA 330 [facility] 100 [place] [address] 02/12/2025 2:00 PM EDT Office Visit [facility] RHEUMATOLOGY 330 [facility] [address] [place] [phone] Anum Leavitt APRN [address] [phone] 05/09/2025 2:30 PM EST Office Visit [facility] RHEUMATOLOGY [address] [address] Roman Maya MD 330 [facility] [address] [place], [place] [phone] documented as of this encounter Goals Goal Patient Goal Type Associated Problems Recent Progress Patient-Stated? Author Specialty Pharmacy General Goal General No Paulino Conley, PharmD Note: Reduce number of flares and pain score. documented as of this encounter Visit Diagnoses Not on filedocumented in this encounter Care Teams Poultry Buyer Relationship Specialty Start Date End Date Andreea Bernabe APRN 1210 [facility] [address] [place] [address] PCP - General Family Medicine 12/10/23 documented as of this encounter
--- OUTSIDE RECORDS SUMMARY | 2024-11-22 14:55 | XMS_ITS | Encounter Summary ---
[facility] Organization [facility] Address [address] [place] [address] Care Team Providers Care Research Animal Facility Supervisor Name Role Phone Andreea Bernabe TISHA Primary Care Provid er Reason for Visit * Reason Onset Date Comments DEVORA RICHEY 10/04/2024 Encounter Details Date Type Department Care Team (Late st Contact Info) Description 10/04/2024 Telephone [facility] RHEUMATOLOGY [address] [phone] Anum Leavitt APRN [address] [address] DEVORA RICHEY Social History Tobacco Use Types Packs/Day Years [...] encounter Miscellaneous Notes * Telephone Encounter - Sindi Reddy RegSched Rep - 10/04/2024 9:36 AM EDT Hub staff attempted to follow warm transfer process and was unsuccessful Caller: Magdy Moreno Relationship to patient: Self Best call back number: [phone] Patient is needing: PT NEEDS HUMIRA SENT TO [facility] DUE TO INSURANCE CHANGE. documented in this encounter Plan of Treatment Upcoming Encounters Date Type Department Care Team (Late st Contact Info) Description 02/12/2025 1:30 PM EDT Appointment [facility] RHEUMATOLOGY DEXA 330 [facility] [address] [place] [address] 02/12/2025 2:00 PM EDT Office Visit [facility] 330 [facility] [address] [phone] Anum Leavitt APRN 330 [facility] [address] [place], [place] [phone] 05/09/2025 2:30 PM EST Office Visit [facility] RHEUMATOLOGY [address] [phone] Roman Maya MD 330 [facility] [address] [place], [place] [phone] documented as of this encounter Goals Goal Patient Goal Type Associated Problems Recent Progress Patient-Stated? Author Specialty Pharmacy General Goal General No Pauilno Conley, PharmD Note: Reduce number of flares and pain score. documented as of this encounter Visit Diagnoses Not on filedocumented in this encounter Care Teams Research Animal Facility Supervisor Relationship Specialty Start Date End Date Andreea Bernabe APRN 1210 [facility] [address] [place] [address] PCP - General Family Medicine 12/10/23 documented as of this encounter
--- OUTSIDE RECORDS SUMMARY | 2024-11-22 14:55 | XMS_ITS | Encounter Summary ---
Author Organization [facility] Address [address] [place] [address] Care Team Providers Care Cuff Setter Overlock Name Role Phone Andreea Bernabe SEAFOOD AND SERVICE MEAT MANAGER Primary Care Provid er Encounter Details Date Type Department Care Team (Late st Contact Info) Description 07/10/2024 Results Follow-Up [facility] RHEUM[facility]OLOGY [address] [phone] Roman Maya MD [address] [address] Social History Tobacco Use Types [...] Info) Description 02/12/2025 1:30 PM EDT Appointment [facility] RHEUMATOLOGY DEXA [address] [address] 02/12/2025 2:00 PM EDT Office Visit [facility] RHEUM[facility] [address] [address] Anum Leavitt APRN [address] [address] 05/09/2025 2:30 PM EST Office Visit [facility] RHEUM[facility] [address] [phone] Roman Maya MD [address] [address] documented as of this encounter Visit Diagnoses Not on filedocumented in this encounter Care Teams Cuff Setter Overlock Relationship Specialty Start Date End Date Andreea Bernabe APRN 1210 [facility] [address] [address] PCP - General Family Medicine 12/10/23 documented as of this encounter
--- OUTSIDE RECORDS SUMMARY | 2024-11-22 14:55 | XMS_ITS | Clinical Summary ---
Author Organization [facility] Address [address] [place] [address], [address] [place] [address] Care Team Providers Care Chemical Production Machine Operator Name Role Phone Andreea Bernabe APRN - DERRICK ENGINEER Primary Care P [facility] Social History Tobacco Use Types Packs/Day Years Used Date Smoking Tobacco: Never Assessed Comments Unknown Sex and Gender Information Value Date Recorded Sex Assigned at Not on file Legal Sex Female 8:13 AM EDT Gender Identity Not on file Sexual Orientation Not on file Plan of Treatment Not on file Care Teams Chemical Production Machine Operator Relationship Specialty Start Date End Date Andreea Bernabe APRN - NP 1210 [facility] [address] [place] [address] PCP - General 12/19/20
--- OUTSIDE RECORDS SUMMARY | 2024-11-22 14:55 | XMS_ITS | Encounter Summary ---
Author Organization [facility] Address [address] [place] [address] Care Team Providers Care Suspect Artist Name Role Phone Unavailable Primary Care Provider Unavailabl e Encounter Details Date Type Department Care Team (Late st Contact Info) Description 03/16/2024 Lab Requisition [facility] Oral Pathology [address] [place] [address] Antwan Cole, DMD [address] [place] [address] [place], [place] [phone] Varicose veins of other specified sites Social History Tobacco Use Types Packs/Day Years Used Date Smoking Tobacco: Never Assessed Comments Unknown Sex and Gender Information Value Date Recorded Sex Assigned at Not on file Legal Sex Female 8:21 PM EDT Gender Identity Not on file Sexual Orientation Not on file documented as of this encounter Plan of Treatment Not on file documented as of this encounter Procedures Procedure Name Priority Date/Time Associated Diagnosis Comments ORAL PATHOLOGY EXAM Routine 03/14/2024 Varicose veins of other specified sites documented in this encounter Results * Oral Pathology Exam (03/14/2024) Gross Description A. Upper Lip, The gross examination on March 14 reveals one irregular piece of churchill, brown, and otto soft tissue measuring 0.8x0.7x0.3 cm. The entire specimen was submitted for microscopic examination. A request for this from the treating clinician accompanied the specimen. The clinical diagnosis is Varix. 03/17/2024 9:53 AM [facility] ORAL PATHOLOGY Microscopic Description Microscopic examination reveals sections of fibrous connective tissue and adipose containing enlarged, thin-walled, endothelial-li damon ectatic vessels with erythrocytes. 03/17/2024 9:53 AM [facility] ORAL PATHOLOGY Final Diagnosis Upper Lip: VARIX, EXCISIONAL BIOPSY I86.8 03/17/2024 9:53 AM EST [facility] ORAL PATHOLOGY at 0953 EST Tissue Upper lip structure / Unknown 03/14/2024 03/16/2024 9:53 AM EST us Antwan Cole DMD LAB PATHOLOGY ORDERABLES Fi nal Result [facility] ORAL [facility]OLOG[facility] [address] [place] [address] documented in this encounter Visit Diagnoses Diagnosis Varicose veins of other specified sites documented in this encounter
--- OUTSIDE RECORDS SUMMARY | 2024-11-22 14:55 | XMS_ITS | Clinical Summary ---
Author Organization [facility] Address [address] [place] [address] Care Team Providers Care Semiconductor Wafers Marker Name Role Phone Andreea Bernabe TISHA Primary Care Provid er Allergies Active Allergy Reactions Criticality Noted Date Comments Morphine Provider Review Needed 12/14/2023 Penicillins Provider Review Needed 12/14/2023 Medications omeprazole (priLOSEC) 40 MG capsule Take 1 capsule by mouth Daily. Take before a meal Active ALPRAZolam (XANAX) 0.5 MG tablet Take 1 tablet by mouth 2 (Two) Times a Day As Needed for Anxiety. Active sertraline (ZOLOFT) 100 MG tablet Take 1 tablet by mouth Daily. Active albuterol sulfate HFA 108 (90 Base) MCG/ACT inhaler INHALE TWO PUFFS BY MOUTH FOUR TIMES DAILY NEEDED FOR SHORTNESS OF BREATH OR wheezing Active buPROPion XL (WELLBUTRIN XL) 150 MG 24 hr tablet Take 1 tablet by mouth Daily. 06/21/19 25 Active Adalimumab (Humira, 2 Pen,) 40 MG/0.4ML Auto-injector Kit Inject 40 mg under the skin into the appropriate area as directed Every 14 (Fourteen) Days. 2 each 3 10/31/2024 12:29 PM EDT 10/05/19 25 Active metFORMIN ER (GLUCOPHAGE-XR ) 500 MG 24 hr tablet Take 1 tablet by mouth Daily. 10/24/19 25 Active nicotine (NICODERM CQ) 21 MG/24HR patch apply 1 PATCH topically ONCE DAILY 11/04/19 24 025 Discontinue d(Patient Reported Not Taking) predniSONE (DELTASONE) 20 MG tablet TAKE TWO TABLETS BY MOUTH EVERY DAY FOR FOURTEEN DAYS, followed by taking 1 tab daily FOR 14 DAYS, followed by taking ONE-HALF tablet daily FOR 14 DAYS. THEN discontinue --TAKE WITH FOOD-- Discontinue d(Patient Reported Not Taking) ketoconazole (NIZORAL) 2 % cream apply topically to the affected area(s) twice daily for fourteen days 07/11/19 025 Discontinue d(Patient Reported Not Taking) methocarbamol (ROBAXIN) 500 MG tablet TAKE 1 OR 2 TABLET(S) BY MOUTH TWICE DAILY MAY CAUSE DROWSINESS 08/25/19 Discontinue d(Patient Reported Not Taking) nystatin (MYCOSTATIN) 100,000 unit/mL suspension SWISH AND spit 5 ML BY MOUTH TWICE DAILY (morning AND night) UNTIL GONE --SHAKE WELL BEFORE USE-- 08/24/19 025 Discontinue d(Patient Reported Not Taking) triamcinolone (KENALOG) 0.1 % ointment APPLY TOPICALLY TO THE AFFECTED AREA(S) TWICE DAILY FOR 10 DAYS 08/25/19 025 Discontinue d(Patient Reported Not Taking) Active Problems Problem Noted Date Diagnosed Date Immunosuppression due to drug therapy 12/20/2023 Assessment & Plan (11/09/2024 9:50 AM EDT): Lin. Tolerating well No recent infections. Assessment & Plan (06/28/2024 2:00 PM EST): Humira. No recent infections. Assessment & Plan (12/21/2023 12:16 PM EDT): Humira. No recent infections. High risk medication use 12/20/2023 Assessment & Plan (11/09/2024 9:50 AM EDT): Methotrexate stopped. She flared after stopping and Dr. Maya previously suggested she restart at low-dose but she declined. Assessment & Plan (06/28/2024 2:00 PM EST): Methotrexate stopped. She flared after stopping and I suggested restart at low- dose but she declined. Assessment & Plan (12/20/2023 5:27 PM EDT): Methotrexate stopped. She flared after stopping and I suggested restart at low- dose but she declined. History of melanoma 12/20/2023 Assessment & Plan (11/06/2024 1:16 PM EDT): In remission. Assessment & Plan (06/28/2024 2:00 PM EST): In remission. Assessment & Plan (12/20/2023 5:27 PM EDT): In remission. Bilateral hand numbness 12/20/2023 Assessment & Plan (06/28/2024 2:00 PM EST): Resolved. Assessment & Plan (12/20/2023 5:27 PM EDT): Resolved. Chronic fatigue 12/20/2023 Assessment & Plan (06/28/2024 2:00 PM EST): Stable. Assessment & Plan (12/20/2023 5:27 PM EDT): Stable. Posterior tibial tendinitis of right lower extre mity 12/20/2023 Assessment & Plan (11/06/2024 4:13 PM EDT): Improved . Assessment & Plan (06/28/2024 2:00 PM EST): I suggested pigp-kcz-zspjovn orthotics. Assessment & Plan (12/20/2023 5:27 PM EDT): I suggested bewv-rmg-riwyyku orthotics. Rheumatoid arthritis 12/14/2023 Assessment & Plan (11/09/2024 9:50 AM EDT): Acute onset 11/10 with pain and swelling in the hands. Second recurrence 12/11, both resolved with steroids. * Rheumatoid factor positive with negative CCP antibody and negative JOSEPH. Uric acid 3.5. CURRENT MEDS: Humira 520. FAILED MEDS: Plaquenil (started 02/10, stopped due [...] possibly rituximab or Abatacept. RTC 3 mo Assessment & Plan (06/28/2024 1:56 PM EST): Acute onset 11/10 with pain and swelling in the hands. Second recurrence 12/11, both resolved with steroids. * Rheumatoid factor positive with negative CCP antibody and negative JOSEPH. Uric acid 3.5. CURRENT MEDS: Humira 20. FAILED MEDS: Plaquenil (started 02/10, stopped due to cost), Arava (04/2019 GI side effects) MTX stopped per pt choice.. RA appears to be doing well. Tender joint count is 0, swollen joint count is 0 , physician global is 0 , visual analog pain scale is 8, pt global is 8. CDAI is 8-low disease activity. Prognosis is good. Lab order given. Continue Humira. I will get records from her turf manager. If RA lung disease could consider Rituximab or possibly Abatacept. RTC 3 mo Assessment & Plan (12/21/2023 12:01 PM EDT): Acute onset 7 with pain and swelling in the hands. [...] is 8-low disease activity. Prognosis is good. Lab order given. Continue Humira. I will get records from her turf manager. RTC 3 mo Encounters Date Type Department Care Team Description 11/09/2024 Results Follow-Up [facility] RHE[facility]ATOLOG[facility] [address] [place] [phone] Anum Leavitt APRN 11/06/2024 3:30 PM EDT Office Visit [facility] [address] [place] [phone] Anum Leavitt APRN Rheumatoid arthritis involving multiple sites with positive rheumatoid factor (Primary Dx); Immunosuppression due to drug therapy; High risk medication use; History of melanoma; Posterior tibial tendinitis of right lower extremity; Fibromyalgia; Tobacco use; Chronic fatigue; Post-menopausal 11/06/2024 Telephone [facility] [address] [place] [phone] Anum Leavitt APRN 11/06/2024 Travel 10/30/2024 Telephone [facility] [address] [place] [phone] Harriett Rosario, Bander 10/04/2024 Telephone [facility] [address] [place] [phone] Anum Leavitt APRN COLEMAN - MEDS from Last 3 Months Family History Medical History Relation Name Comments Breast cancer Mother COPD Mother Relation Name Status Comments Mother Social History Tobacco Use Types Packs/Day Years Used Date Smoking Tobacco: Never Passive Smoke Exposure: Never Smokeless Tobacco: Never Tobacco Cessation:Counseling Given: Not Answered Alcohol Use Standard Drinks/Week Comments Never 0 (1 standard drink = 0.6 oz pur e alcohol) Comments Unknown Sex and Gender Information Value Date Recorded Sex Assigned at Not on file Legal Sex Female 8:38 AM EDT Gender Identity Not on file Sexual Orientation Not on file Last Filed Vital Signs Vital Sign Reading [...] Mass Index 38.33 11/06/2024 3:21 PM EDT Plan of Treatment Upcoming Encounters Date Type Department Care Team (Late st Contact Info) Description 02/12/2025 1:30 PM EDT Appointment [facility] DEXA [address] [phone] 02/12/2025 2:00 PM EDT Office Visit [facility] [address] [place] [phone] Anum Leavitt APRN [address] [address] 05/09/2025 2:30 PM EST Office Visit [facility] [address] [phone] Roman Maya MD [address] [address] Health Maintenance Due Date Last Done Comments Annual Gynecologic Pelvic and Breast Exam 1970 COVID-19 Vaccine (#1) 01/30/1973 Pneumococcal Vaccine 50+ (1 of 2 - PCV) 01/30/1987 ZOSTER VACCINE (1 of 2) 01/30/1987 TDAP/TD VACCINES (2 - Tdap) 06/30/2006 06/30/1996 COLOGUARD 01/30/2013 COLON CANCER SCREENING 5 YEA R SIGMOIDOSCOPY 01/30/2013 COLONOSCOPY 01/30/2013 COLORECTAL CANCER SCREENING 01/30/2013 CT COLONOGRAPHY 01/30/2013 FECAL OCCULT BLOOD TEST 01/30/2013 FIT Testing (1 year) 01/30/2013 MAMMOGRAM 09/28/2020 09/28/2018, 09/28/2018 ANNUAL WELLNESS VISIT 08/27/2023 HEPATITIS C SCREENING 08/27/2023 INFLUENZA VACCINE 01/24/2025 Goals Goal Patient Goal Type Associated Problems Recent Progress Patient-Stated? Author Specialty Pharmacy General Goal General No Paulino Conley, PharmD Note: Reduce number of flares and pain score. Procedures Procedure Name Priority Date/Time Associated Diagnosis [...] involving multiple sites with positive rheumatoid factor from Last 3 Months Results * QuantiFERON TB Gold (Kit Test) (11/06/2024 4:36 PM EDT) QuantiFERON Incubation Incubation performed. [facility] QuantiFERON [...] immunoassay methodology 11/06/2024 4:36 PM EDT 11/06/2024 [facility] (AMBULATORY) - 11/08/2024 6:07 PM EDT Performed at: [address] [place] [address] [id number] Etcher Electrolytic: True Alvarado PhD, Phone: [phone] Patient Fasting: N Anum Leavitt APRN LAB BLOOD ORDERABLES Final Result [facility] [address] [place] [address], [facility] [address] [place] [address], [place] [phone] * (ABNORMAL) C-reactive Protein (11/06/2024 4:36 PM EDT) [facility] C-Reactive Protein 12(H) 0 - 10 mg/L [facility] Blood 11/06/2024 4:36 PM EDT 11/06/2024 [facility] (AMBULATORY) - 11/08/2024 6:07 PM EDT Performed at: [address] [place] [id number] Etcher Electrolytic: True Alvarado PhD, Phone: [phone] Patient Fasting: N us Anum Leavitt APRN LAB BLOOD ORDERABLES Final Result Performing Organization Address [facility]/ZIP Co de Phone Number [facility] (AMBULATORY) [address] [place] [address], [facility] [address] [place] [address], * (ABNORMAL) Sedimentation Rate (11/06/2024 4:34 PM EDT) Pathologist [facility] Sed Rate 52(H) 0 - 40 mm/hr [facility] Blood 11/06/2024 4:34 PM EDT 11/06/2024 Narrative [facility] (AMBULATORY) - 11/07/2024 6:06 AM EDT Performed at: 01 - [facility] [address] [place] [id number] Etcher Electrolytic: True Alvarado PhD, Phone: [phone] Patient Fasting: N Anum Leavitt APRN LAB BLOOD ORDERABLES Final Result Performing Organization Address [facility] Co de Phone Number [facility] (AMBULATORY) [address] [place] [address], [facility] [address] [place] [address], * (ABNORMAL) CBC (No Diff) (11/06/2024 4:34 PM EDT) Pathologist [facility] WBC 6.5 3.4 - 10.8 x10E3/uL [facility] [...] 11/06/2024 4:34 PM EDT 11/06/2024 Narrative [facility] (AMBULATORY) - 11/07/2024 6:06 AM EDT Performed at: 01 - [facility] [address] [place], [place] [id number] Etcher Electrolytic: True Alvarado PhD, Phone: [phone] Patient Fasting: N Anum Leavitt APRN LAB BLOOD ORDERABLES Final Result [facility] ([facility]BULATORY) [address] [place] [address], [facility] [address] [place] [address], * Comprehensive Metabolic Panel (11/06/2024 4:34 PM [...] 11/06/2024 4:34 PM EDT 11/06/2024 Narrative [facility] (AMBULATORY) - 11/07/2024 6:06 AM EDT Performed at: 01 - [facility] [address] [place], [place] [id number] Etcher Electrolytic: True Alvarado PhD, Phone: [phone] Patient Fasting: N us Anum Tree BAND SPLICER LAB BLOOD ORDERABLES Final Result [facility] (AMBULATORY) [address] [place] [address], [facility] [address] [place] [address], from Last 3 Months Insurance [employer] MEDICARE ADVANTAGE PPO MEDICARE A & B Care Teams Semiconductor Wafers Marker Relationship Specialty Start Date End Date Andreea Bernabe APRN [address] [facility] [place] [address] PCP - General Family Medicine 12/10/23
== END 2024-11-22 23:59 | disposition home or self-care (01) ==
LOC: RT 14:52
PROVIDERS: PCP Nurse Practitioner Family; Visit Provider Internal Medicine Pulmonary Disease
DX: J44.9 Chronic obstructive pulmonary disease, unspecified (principal); R94.2 Abnormal results of pulmonary function studies
CPT/HCPCS: 94060; 94618; 94640; 94726; 94729

== ENCOUNTER 2024-12-04 12:55 | Outpatient (CLI) | payer MEDICARE, SELFPAY ==
--- OUTSIDE RECORDS SUMMARY | 2024-11-06 15:30 | XMS_ITS | Encounter Summary ---
[facility] Address [address] [place] [address] Care Team Providers Care Supervisor [employer] Name Role Phone Andreea Bernabe APRN Primary Care Provid er Reason for Referral * Diagnostic Imaging (Routine) - Authorized Specialty Diagnoses / Procedures Referred By Sage t Referred To Contact Radiology Diagnoses Post-menopausal Procedures DEXA Bone Density Axial Anum Leavitt APRN [address] [address] Phone: tel: fax: [facility] DEXA [address] [phone] Phone: tel: fax: Referral ID Status Reason Start Date Expiration Date V isits Requested Visits Authorized [id number] Authorized 11/06/2024 02/05/2026 1 1 Reason for Visit * Reason Comments Rheumatoid arthritis involving multiple sites with positive Encounter Details Date Type Department Care Team (Late st Contact Info) Description 11/06/2024 3:30 PM EDT Office Visit [facility] [address] [phone] Anum Leavitt APRN [address] [phone] Rheumatoid arthritis involving multiple sites with positive [...] 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 Orders Placed This [...] in about 3 months (around 02/06/2025) for STUDENT COUNSELLOR's, Dr. Maya. Anum Leavitt APRN [facility] [place] [facility] [place] documented in this encounter Plan of Treatment Upcoming Encounters Date Type Department Care Team (Late st Contact Info) Description 02/12/2025 1:30 PM EDT Appointment [facility] RHE[facility] DEXA [address] [phone] 02/12/2025 2:00 PM EDT Office Visit [facility] [address] [phone] Anum Leavitt APRN [address] [phone] 05/09/2025 2:30 PM EST Office Visit [facility] [address] [phone] Roman Maya MD [address] [phone] Scheduled Orders Name Type Priority Associated Diagnoses [...] (Kit Test) (11/06/2024 4:36 PM EDT) Pathologist [facility] QuantiFERON Incubation Incubation performed. [facility] QuantiFERON [...] - 11/08/2024 6:07 PM EDT Performed at: [address] [place] [id number] Housing Inspectors: True Alvarado PhD, Phone: [phone] Patient Fasting: N us Anum Leavitt SYSTEM DESIGNER LAB BLOOD ORDERABLES Final Result Performing Organization Address City/[facility]/ZIP Co de Phone Number [facility] (AMBULATORY) [address] [place] [address], [facility] [address] [place] [address], * (ABNORMAL) C-reactive Protein (11/06/2024 4:36 PM EDT) [facility] C-Reactive Protein 12(H) 0 - 10 mg/L [facility] Blood 11/06/2024 4:36 PM EDT 11/06/2024 Narrative [facility] ([facility]) - 11/08/2024 6:07 PM EDT Performed at: - [facility] [address] [place] [id number] Housing Inspectors: True Alvarado PhD, Phone: [phone] Patient Fasting: N Anum Leavitt SYSTEM DESIGNER LAB BLOOD ORDERABLES Final Result Performing Organization Address [facility]/ZIP Co de Phone Number [facility] (AMBULATORY) [address] [place] [address], [facility] [address] [place] [address], * (ABNORMAL) CBC (No Diff) (11/06/2024 4:34 PM EDT) [facility] WBC 6.5 3.4 - 10.8 x10E3/uL [facility] [...] 11/07/2024 6:06 AM EDT Performed at: - [facility] [address] [place] [id number] Housing Inspectors: True Alvarado PhD, Phone: [phone] Patient Fasting: N Anum Leavitt APRN LAB BLOOD ORDERABLES Final Result Performing Organization Address [facility] Co de Phone Number [facility] [address] [place] [address], [place] [phone] [facility] [address] [place] [address], [place] [phone] * (ABNORMAL) Sedimentation Rate (11/06/2024 4:34 PM EDT) Sed Rate 52(H) 0 - 40 mm/hr [facility] Blood 11/06/2024 4:34 PM EDT 11/06/2024 Narrative [facility] (AMBULATORY) - 11/07/2024 6:06 AM EDT Performed at: - [address] [id number] Housing Inspectors: True Alvarado PhD, Phone: [phone] Patient Fasting: N Anum Leavitt APRN LAB BLOOD ORDERABLES Final Result Performing Organization Address City/[facility]/ZIP Co de Phone Number [facility] [address] [place] [address], [place] [phone] [facility] [address] [place] [address], [place] [phone] * Comprehensive Metabolic Panel (11/06/2024 4:34 PM [...] 6:06 AM EDT Performed at: [address] [id number] Housing Inspectors: True Alvarado PhD, Phone: [phone] Patient Fasting: N us Anum Leavitt APRN LAB BLOOD ORDERABLES Final Result Performing Organization Address City/State/[facility] Co de Phone Number [facility] [place] (AMBULATORY) [address] [place] [phone], [facility] [address] [place] [address], documented in this encounter Visit Diagnoses Diagnosis [...] (natural) documented in this encounter Care Teams Supervisor [employer] Relationship Specialty Start Date End Date Andreea Bernabe APRN [address] [place] [phone] PCP - General Family Medicine 12/10/23 documented as of this encounter
--- OUTSIDE RECORDS SUMMARY | 2024-12-04 12:58 | XMS_ITS | Encounter Summary ---
Author Organization [facility] Address [address] [place] [address] Care Team Providers Care Basket Bottom Machine Operator Name Role Phone Andreea Bernabe TISHA Primary [...] Info) Description 02/12/2025 1:30 PM EDT Appointment [facility] RHEUMAT[facility] DEXA [address] [phone] 02/12/2025 2:00 PM EDT Office Visit [facility] 330 [facility] [address] [phone] Anum Leavitt APRN [address] [address] 05/09/2025 2:30 PM EST Office Visit [facility] RHE[facility] [address] [phone] Roman Maya MD 330 [facility] [facility] [address] [place], [place] [phone] documented as of this encounter Goals Goal Patient Goal Type Associated Problems Recent Progress Patient-Stated? Author Specialty Pharmacy General Goal General No Paulino Conley, AlyceD Note: Reduce number of flares and pain score. documented as of this encounter Visit Diagnoses Not on filedocumented in this encounter Care Teams Basket Bottom Machine Operator Relationship Specialty Start Date End Date Andreea Bernabe APRN [address]10 [facility] [address] [place] [address] PCP - General Family Medicine 12/10/23 documented as of this encounter
--- OUTSIDE RECORDS SUMMARY | 2024-12-04 12:58 | XMS_ITS | Encounter Summary ---
Author Organization [facility] Address [address] [place] [address] Care Team Providers Care Option Trader Name Role Phone Andreea Bernabe TISHA Primary Care Provid er Reason for Visit * Reason Onset Date Comments DEVORA RICHEY 10/04/2024 Encounter Details Date Type Department Care Team (Late st Contact Info) Description 10/04/[address] [facility] RHEUMATOLOGY [address] [phone] Anum Leavitt APRN [address] [address] DEVORA RICHEY Social History Tobacco Use Types [...] to patient: Self Best call back number: [phone] Patient is needing: PT NEEDS HUMIRA SENT TO [facility] DUE TO INSURANCE CHANGE. documented in this encounter Plan of Treatment Upcoming Encounters Date Type Department Care Team (Late st Contact Info) Description 02/12/2025 1:30 PM EDT Appointment [facility] RHEUM[facility] DEXA 330 [facility] [address] [place] [address] 02/12/2025 2:00 PM EDT Office Visit [facility] 330 [facility] [address] [phone] Anum Leavitt APRN 330 [facility] [address] [place], [place] [phone] 05/09/2025 2:30 PM EST Office Visit [facility] RHEUM[facility] [address] [phone] Roman Maya MD 330 [facility] [address] [place], [place] [phone] documented as of this encounter Goals Goal Patient Goal Type Associated Problems Recent Progress Patient-Stated? Author Specialty Pharmacy General Goal General No Paulino Conley, PharmD Note: Reduce number of flares and pain score. documented as of this encounter Visit Diagnoses Not on filedocumented in this encounter Care Teams Option Trader Relationship Specialty Start Date End Date Andreea Bernabe APRN 1210 [facility] [address] [place] [address] PCP - General Family Medicine 12/10/23 documented as of this encounter
--- OUTSIDE RECORDS SUMMARY | 2024-12-04 12:58 | XMS_ITS | Encounter Summary ---
Author Organization Healthcare Address [address] [place] [address] Care Team Providers Care Quality Rep Name Role Phone Unavailable Primary Care Provider Unavailabl e Encounter Details Date Type Department Care Team (Late st Contact Info) Description 03/16/2024 Lab Requisition [facility] Oral Pathology [address] [place] [address] Antwan Cole, DMD [address] [place] [address] [place], [place] [phone] Varicose veins of other specified sites Social [...] clinical diagnosis is Varix. 03/17/2024 9:53 AM [facility] ORAL PATHOLOGY Microscopic Description Microscopic examination reveals sections of fibrous connective tissue and adipose containing enlarged, thin-walled, endothelial-li damon ectatic vessels with erythrocytes. 03/17/2024 9:53 AM [facility] ORAL PATHOLOGY Final Diagnosis Upper Lip: VARIX, EXCISIONAL BIOPSY I86.8 03/17/2024 9:53 AM EST [facility] ORAL [facility] at 0953 EST Tissue Upper lip structure / Unknown 03/14/2024 03/16/2024 9:53 AM EST us Antwan Cole DMD LAB PATHOLOGY ORDERABLES Fi nal Result [facility] [address] [place] [address] documented in this encounter Visit Diagnoses Diagnosis Varicose veins of other specified sites documented in this encounter
--- OUTSIDE RECORDS SUMMARY | 2024-12-04 12:58 | XMS_ITS | Clinical Summary ---
Author Organization [facility] Address [address] [place] [address] Care Team Providers Care Cross Country And Track And Field Coach Name Role Phone Unavailable Primary Care Provider Unavailabl e Social History Tobacco Use Types Packs/Day Years Used Date Smoking Tobacco: Never Assessed Comments Unknown Sex and Gender Information Value Date Recorded Sex Assigned at Not on file Legal Sex Female 8:21 PM EDT Gender Identity Not on file Sexual Orientation Not on file Plan of Treatment Not on file Insurance [place] [address] [facility] MEDICARE
--- OUTSIDE RECORDS SUMMARY | 2024-12-04 12:58 | XMS_ITS | Clinical Summary ---
Author Organization [facility] Address [address] [place] [address], [address] [place] [address] Care Team Providers Care Arcgis Developer Name Role Phone Andreea Bernabe APRN - MOTORCYCLE SERVICE TECHNICIAN Primary Care [facility] Social History Tobacco Use Types Packs/Day Years Used Date Smoking Tobacco: Never Assessed Comments Unknown Sex and Gender Information Value Date Recorded Sex Assigned at Not on file Legal Sex Female 8:13 AM EDT Gender Identity Not on file Sexual Orientation Not on file Plan of Treatment Not on file Care Teams Arcgis Developer Relationship Specialty Start Date End Date Andreea Bernabe APRN - NP [address] [facility] [address] [place] [address] PCP - General 12/19/20
--- OUTSIDE RECORDS SUMMARY | 2024-12-04 12:58 | XMS_ITS | Clinical Summary ---
Author Organization [facility] Address [address] [place] [address] Care Team Providers Care Procurement Engineer Name Role Phone Andreea Bernabe TISHA Primary [...] Every 14 (Fourteen) Days. 2 each 3 11/28/2024 8:41 AM EDT 10/05/19 25 Active metFORMIN ER (GLUCOPHAGE-XR [...] Plan (06/28/2024 2:00 PM EST): I suggested [id number]-[id number] orthotics. Assessment & Plan (12/20/2023 5:27 PM EDT): I suggested zslm-bms-ozswfer orthotics. Rheumatoid arthritis 12/14/2023 Assessment & Plan [...] Humira. I will get records from her customer care agent. If RA lung disease could consider Rituximab [...] Humira. I will get records from her customer care agent. RTC 3 mo Encounters Date Type Department Care Team Description 11/09/2024 Results Follow-Up [facility] RHEUMAT[facility] [address] [place] [phone] Anum Leavitt APRN 11/06/2024 3:30 PM EDT Office Visit [facility] R[facility] [address] [place] [phone] Anum Levaitt APRN Rheumatoid arthritis involving multiple sites with positive rheumatoid factor (Primary Dx); Immunosuppression due to drug therapy; High risk medication use; History of melanoma; Posterior tibial tendinitis of right lower extremity; Fibromyalgia; Tobacco use; Chronic fatigue; Post-menopausal 11/06/2024 Telephone [facility] RHE[facility] [address] [place] [phone] Anum Leavitt APRN 11/06/2024 Travel 10/30/2024 Telephone [facility] RHEUM[facility] [address] [place] [phone] Harriett Rosario, Washing Machine Assembler 10/04/2024 Telephone [facility] RHEUM[facility] [address] [place] [phone] Anum Leavitt APRN COLEMAN - MEDS from [...] Info) Description 02/12/2025 1:30 PM EDT Appointment [facility] RHEUM[facility] DEXA [address] [phone] 02/12/2025 2:00 PM EDT Office Visit [facility] RHEUM[facility] [address] [place] [phone] Anum Leavitt APRN [address] [address] 05/09/2025 2:30 PM EST Office Visit [facility] RHEUM[facility] [address] [phone] Roman Maya MD [address] [address] Health Maintenance Due Date Last Done Comments [...] immunoassay methodology 11/06/2024 4:36 PM EDT 11/06/2024 [facility] [place] [facility] (AMBULATORY) - 11/08/2024 6:07 PM EDT Performed at: [address] [place] [id number] Roofing Apprentice: True Alvarado PhD, Phone: [phone] Patient Fasting: N Anum Leavitt APRN LAB BLOOD ORDERABLES Final Result [facility] [address] [place] [address], [facility] [address] [place] [address], [place] [phone] * (ABNORMAL) C-reactive Protein (11/06/2024 4:36 PM EDT) [facility] C-Reactive Protein 12(H) 0 - 10 mg/L [facility] Blood 11/06/2024 4:36 PM EDT 11/06/2024 [facility] [place] [facility] (AMBULATORY) - 11/08/2024 6:07 PM EDT Performed at: [address] [place] [id number] Roofing Apprentice: True Alvarado PhD, Phone: [phone] Patient Fasting: N us Anum Leavitt APRN LAB BLOOD ORDERABLES Final Result Performing Organization Address [facility]/ZIP Co de Phone Number [facility] (AMBULATORY) [address] [place] [address], [facility] [address] [place] [address], * (ABNORMAL) Sedimentation Rate (11/06/2024 4:34 PM EDT) Pathologist [facility] Sed Rate 52(H) 0 - 40 mm/hr [facility] Blood 11/06/2024 4:34 PM EDT 11/06/2024 Narrative [facility] (AMBULATORY) - 11/07/2024 6:06 AM EDT Performed at: 01 - [facility] [address] [place] [id number] Roofing Apprentice: True Alvarado PhD, Phone: [phone] Patient Fasting: N Anum Leavitt APRN LAB BLOOD ORDERABLES Final Result Performing Organization Address [facility] Co de Phone Number [facility] (AMBULATORY) [address] [place] [address], [facility] [address] [place] [address], * (ABNORMAL) CBC (No Diff) (11/06/2024 4:34 PM EDT) Pathologist [facility] WBC 6.5 3.4 - 10.8 x10E3/uL [facility] [...] 11/06/2024 4:34 PM EDT 11/06/2024 Narrative [facility] (AMBULATORY) - 11/07/2024 6:06 AM EDT Performed at: 01 - [facility] [address] [place], [place] [id number] Roofing Apprentice: True Alvarado PhD, Phone: [phone] Patient Fasting: N Anum Leavitt APRN LAB BLOOD ORDERABLES Final Result [facility] (AMBULATORY) [address] [place] [address], [facility] [address] [place] [address], * Comprehensive Metabolic Panel (11/06/2024 4:34 PM [...] AM EDT Performed at: 01 - [facility] [address] [place], [place] [id number] Roofing Apprentice: True Alvarado PhD, Phone: [phone] Patient Fasting: N us Anum Tree PRODUCTION FOREMAN LAB BLOOD ORDERABLES Final Result [facility] (AMBULATORY) [address] [place] [address], [facility] [address] [place] [address], from Last 3 Months Insurance [employer] MEDICARE ADVANTAGE PPO MEDICARE A & B Care Teams Procurement Engineer Relationship Specialty Start Date End Date Andreea Bernabe APRN [address] [place] [address] PCP - General Family Medicine 12/10/23
--- OUTSIDE RECORDS SUMMARY | 2024-12-04 12:58 | XMS_ITS ---
Author Organization [facility] Address [address] [place] [address] Care Team Providers Care Home Service Technician Name Role Phone Andreea Bernabe APRN Primary Care Provid er Rheumatology Status:Enrolled (Active) Start date:01/04/2024 Enrollment date:01/04/2024 Enrollment reason:Converted fill to Current support & services provided:Clinical Assessment, Refill Coordination , Benefits Investigation, [facility] Dispensing , In-person/Telemed Visit Required Linked medications:Adalimumab (Active) Linked problems:Rheumatoid arthritis (Active) Case Team Name Relationship Phone Sandy Puckett Art Instructor Strawhat Sizer Continued Care and Services Coordination
--- OUTSIDE RECORDS SUMMARY | 2024-12-04 12:58 | XMS_ITS | Encounter Summary ---
[facility] Organization [facility] Address [address] [place] [address] Care Team Providers Care Coverage Analyst Name Role Phone Andreea Bernabe LINUX ADMIN ENGINEER Primary Care Provid er Encounter Details Date Type Department Care Team (Late Contact Info) Description 10/30/2024 Telephone [facility] [address] [phone] Harriett Rosario, Phys Asst Social History Tobacco Use Types Packs/Day Years [...] Notes * Telephone Encounter - Harriett Rosario, Phys Asst - 10/30/2024 3:03 PM EDT Prior authorization initiated by [facility]. Update will be provided when a determination has been received. Medication: Humira PA Submission Method: CMM Case Number/CMM Baptiste: [id number] documented in this encounter Plan of Treatment Upcoming Encounters Date Type Department Care Team (Late st Contact Info) Description 02/12/2025 1:30 PM EDT Appointment [facility] DEXA [address] [phone] 02/12/2025 2:00 PM EDT Office Visit [facility] [address] [phone] Anum Leavitt APRN [address] [phone] 05/09/2025 2:30 PM EST Office Visit [facility] [address] [phone] Roman Maya MD [address] [phone] documented as of this encounter Goals Goal Patient Goal Type Associated Problems Recent Progress Patient-Stated? Author Specialty Pharmacy General Goal General Paulino Lr, PharmD Note: Reduce number of flares and pain score. documented as of this encounter Visit Diagnoses Not on filedocumented in this encounter Care Teams Coverage Analyst Relationship Specialty Start Date End Date Andreea Bernabe APRN 12[address] [facility] [address] [place] [address] PCP - General Family Medicine 12/10/23 documented as of this encounter
--- OUTSIDE RECORDS SUMMARY | 2024-12-04 12:58 | XMS_ITS | Encounter Summary ---
[facility] Address [address] [place] [address] Care Team Providers Care Nursery Supervisor Name Role Phone Andreea Bernabe ELECTRICIAN RADIO Primary Care Provid er Encounter Details Date Type Department Care Team (Late Contact Info) Description 11/09/2024 Results Follow-Up [facility] [address] [phone] Anum Leavitt APRN [address] [address] Social History Tobacco Use Types [...] Info) Description 02/12/2025 1:30 PM EDT Appointment [facility] DEXA [address] [phone] 02/12/2025 2:00 PM EDT Office Visit [facility] [address] [phone] Anum Leavitt APRN 330 [facility] [address] [place] [address] 05/09/2025 2:30 PM EST Office Visit [facility] [address] [phone] Roman Maya MD 330 [facility] [address] [place], [place] [phone] documented as of this encounter Goals Goal Patient Goal Type Associated Problems Recent Progress Patient-Stated? Author Specialty Pharmacy General Goal General No Paulino Conley, PharmD Note: Reduce number of flares and pain score. documented as of this encounter Visit Diagnoses Not on filedocumented in this encounter Care Teams Nursery Supervisor Relationship Specialty Start Date End Date Andreea Bernabe, TISHA 1210 [facility] [address] [facility] [address] [place] [address] PCP - General Family Medicine 12/10/23 documented as of this encounter
--- OUTSIDE RECORDS SUMMARY | 2024-12-04 12:58 | XMS_ITS | Encounter Summary ---
[facility] Address [address] [place] [address] Care Team Providers Care Regulatory Compliance Officer Name Role Phone Andreea Bernabe TISHA Primary Care Provid er Encounter Details Date Type Department Care Team (Late st Contact Info) Description 11/06/2024 Telephone [facility] 330 [facility] [address] [place] [address] Anum Leavitt APRN [address] [address] Social History Tobacco Use Types [...] Info) Description 02/12/2025 1:30 PM EDT Appointment [facility] DEXA 330 [facility] [address] [place] [address] 02/12/2025 2:00 PM EDT Office Visit [facility] 330 [facility] [address] [place] [phone] Anum Leavitt APRN [address] [phone] 05/09/2025 2:30 PM EST Office Visit [facility] [address] [phone] Roman Maya MD 330 [facility] [address] [place], [place] [phone] documented as of this encounter Goals Goal Patient Goal Type Associated Problems Recent Progress Patient-Stated? Author Specialty Pharmacy General Goal General No Paulino Conley, PharmD Note: Reduce number of flares and pain score. documented as of this encounter Visit Diagnoses Not on filedocumented in this encounter Care Teams Regulatory Compliance Officer Relationship Specialty Start Date End Date Andreea Bernabe APRN 1210 [facility] [address] [place] [address] PCP - General Family Medicine 12/10/23 documented as of this encounter
--- OUTSIDE RECORDS SUMMARY | 2024-12-04 12:58 | XMS_ITS | Encounter Summary ---
[facility] Address [address] [place] [address] Care Team Providers Care Coach Driver Name Role Phone Andreea Bernabe PATENT PROSECUTION PARALEGAL Primary Care Provid er Encounter Details Date Type Department Care Team (Late st Contact Info) Description 07/10/2024 Results Follow-Up [facility] R[facility] [address] [phone] Roman Maya MD [address] [address] Social History Tobacco Use Types [...] Description 02/12/2025 1:30 PM EDT Appointment [facility] DEXA [address] [phone] 02/12/2025 2:00 PM EDT Office Visit [facility] [address] [phone] Anum Leavitt APRN [address] [address] 05/09/2025 2:30 PM EST Office Visit [facility] [address] [phone] Roman Maya MD [address] [address] documented as of this encounter Visit Diagnoses Not on filedocumented in this encounter Care Teams Coach Driver Relationship Specialty Start Date End Date Andreea Bernabe APRN 1210 [facility] [address] [address] PCP - General Family Medicine 12/10/23 documented as of this encounter
--- NOTE | 2024-12-04 13:04 | XR_ITS ---
FINAL REPORT CLINICAL HISTORY: bilateral hip pain x 1 yr COMPARISON: None FINDINGS: RIGHT HIP Two views of the right hip and an AP pelvis view were obtained. There is no acute fracture or dislocation. The joint spaces are well-preserved. The visualized bony structures are well aligned. There is no acute soft tissue abnormality. IMPRESSION: No acute abnormality identified. Reviewed, Interpreted and Dictated by Yovanny Carrera MD Transcribed by Alix Rios Authenticated and [facility]
--- NOTE | 2024-12-04 13:04 | XR_ITS ---
FINAL REPORT CLINICAL HISTORY: HIP PAIN x 1 yr COMPARISON: 12/15/2021 FINDINGS: LEFT HIP Two views of the left hip and an AP pelvis view were obtained. There is no acute fracture or dislocation. The joint spaces are well-preserved. The visualized bony structures are well aligned. There is no acute soft tissue abnormality. IMPRESSION: No acute abnormality identified. Reviewed, Interpreted and Dictated by Yovanny Carrera MD Transcribed by Alix Rios Authenticated and [facility]
== END 2024-12-04 23:59 | disposition home or self-care (01) ==
LOC: RAD 12:56
PROVIDERS: PCP Nurse Practitioner Family; Visit Provider Nurse Practitioner Family
DX: M25.552 Pain in left hip (principal); M25.551 Pain in right hip
CPT/HCPCS: 73502

== ENCOUNTER 2025-03-06 06:45 | Day surgery (SDC) | payer MEDICARE, SELFPAY ==
[2025-02-28 13:52] VITALS: BMI 38.7
[2025-03-06 07:15] VITALS: BP 107/65; PULSE 64; RESP 18; TEMP 36.3; O2SAT 98
[2025-03-06] MEDS: PHENYLEPHRINE 2.5% OPHTH SOLN 2ML OP ×3 (07:15→07:25)
[2025-03-06] MEDS: CYCLOPENTOLATE 2% OPHTH SOLN 2ML BOTTLE OP ×3 (07:15→07:25)
[2025-03-06] MEDS: TETRACAINE 0.5% OPTH SOL 15ML OP ×3 (07:15→07:25)
[2025-03-06] MEDS: LIDOCAINE 1% PF 2ML VIAL 2 ML IJ (08:01)
[2025-03-06] MEDS: MIDAZOLAM 2MG/2ML VIAL 1 MG IV (08:01)
[2025-03-06 08:02] VITALS: BP 134/79; PULSE 65; RESP 16; O2SAT 98
[2025-03-06] MEDS: TIMOLOL 0.5% OPTH SOLN 5ML OP (08:02)
[2025-03-06] MEDS: TOBRAMYCIN/DEX OPTH SUSP 2.5ML OP (08:02)
[2025-03-06 08:07] VITALS: BP 130/68; PULSE 66; RESP 16; O2SAT 98
[2025-03-06 08:12] VITALS: BP 133/69; PULSE 68; RESP 16; O2SAT 98
[2025-03-06 08:20] VITALS: BP 145/92; PULSE 76; RESP 18; O2SAT 97
[2025-03-06 08:49] LABS: POC Glucose,Bedside 101 gm/dL (70-110)
--- NOTE | 2025-03-06 11:47 | HMH.PROCNOTE ---
[facility] Procedure Note Date: 03/06/25 Time: 11:47 Procedure Note:: Preoperative Diagnosis: Cataract combined NS Cortical Complex [Left] Eye Postop diagnosis: same Operation: Microscopic phacoemulsification with intraocular lens implant [Left] Eye Specimen: None Blood Loss: None The patient was examined in the office with a complaint of poor vision in the [left] eye. The patient reports that this interferes with ADLs such as reading, watching TV and/or driving or the vision is like looking through a foggy haze and is very troubling. The patient was examined and found to have a visually significant cataract with best corrected vision of [20/400] by refraction and/or glare testing. Treatment options, risks and benefits were explained and the patient elected to have cataract surgery in an attempt to improve their vision. The patient had the eye anesthetized with topical tetracaine, the eye ways prepped and draped in the usual fashion for cataract surgery. A paracentesis and a temporal keratotomy were made. 0.2cc of 1% lidocaine PF was placed into the anterior chamber. And aqueous/viscoelastic exchange was done and a 360 degree capsulorexis was performed. Through hydrodissection and delineation with BSS on a cannula was done. The lens nucleus was phecoemulsified with CDE of [3.99]. Residual cortical material was removed using automated I&A The capsular bag was deepened with viscoelastica and a PCIOL was placed in the capsular bag with good centration and stability. Residual viscoelastic was removed using automated I&A. The keratotomy incision was hydrated with BSS on a cannula. The wound were checked and found to be water tight. IOP was checked digitally and adjusted as needed so as not to be too high. 1 drop of timolol 0.5%, ofloxacin, prednisolone acetate and ketorolac was instilled and eye shield taped over the eye. The patient was taken to recovery in good condition and will be seen postoperatively.
== END 2025-03-06 08:30 | disposition home or self-care (01) ==
PROVIDERS: PCP Nurse Practitioner Family; Visit Provider Ophthalmology
DX: E11.36 Type 2 diabetes mellitus with diabetic cataract (principal); H25.812 Combined forms of age-related cataract, left eye; H02.836 Dermatochalasis of left eye, unspecified eyelid; H02.833 Dermatochalasis of right eye, unspecified eyelid; F41.9 Anxiety disorder, unspecified; K21.9 Gastro-esophageal reflux disease without esophagitis; M06.9 Rheumatoid arthritis, unspecified; F32.A Depression, unspecified; J43.9 Emphysema, unspecified; Z88.5 Allergy status to narcotic agent; Z87.891 Personal history of nicotine dependence; Z88.0 Allergy status to penicillin; Z79.899 Other long term (current) drug therapy; Z79.84 Long term (current) use of oral hypoglycemic drugs
CPT/HCPCS: 66982; 82962; J2250; V2632

== ENCOUNTER 2025-03-19 12:48 | Outpatient (CLI) | payer MEDICARE, SELFPAY ==
--- OUTSIDE RECORDS SUMMARY | 2025-02-12 13:00 | XMS_ITS | Encounter Summary ---
Author Organization [facility] Address [address] [place] [address] Care Team Providers Care Photoengraver Apprentice Name Role Phone Andreea Bernabe MINCING MACHINE OPERATOR Primary Care Provid er Reason for Visit * Reason Comments Rheumatoid Arthritis 4 mo fu Encounter Details Date Type Department Care Team (Late st Contact Info) Description 02/12/2025 2:00 PM EDT Office Visit [facility] [address] [phone] Anum Leavitt APRN [address] [phone] Rheumatoid arthritis involving multiple sites with positive rheumatoid factor (Primary Dx); Immunosuppression due to drug therapy; History of melanoma; Posterior tibial tendinitis of right lower extremity; Fibromyalgia; Tobacco use; Post-menopausal; Bilateral hip pain Social History Tobacco Use Types Packs/Day Years Used Date Smoking Tobacco: Never Passive Smoke Exposure: Never Smokeless Tobacco: Never Alcohol Use Standard Drinks/Week Comments Never 0 (1 standard drink = 0.6 oz pur e alcohol) Comments Unknown Sex and Gender Information Value Date Recorded Sex Assigned at Female 02/10/2025 8:46 AM EDT Legal Sex Female 8:38 AM EDT Gender Identity Not on file Sexual Orientation Not on file documented as of this encounter Last Filed Vital Signs Vital Sign Reading Time Taken Comments Blood Pressure 108/64 02/12/2025 1:42 PM EDT Pulse 77 02/12/2025 1:42 PM EDT Temperature 36.6 C (97.9 F) 02/12/2025 1:42 PM EDT Respiratory Rate 20 02/12/2025 1:42 PM EDT Oxygen Saturation - - Inhaled Oxygen Concentration - - Weight 88.7 kg (195 lb 9.6 oz) 02/12/2025 1:42 P M EDT Height 149.9 cm (4' 11.02 ) 02/12/2025 1:42 PM E DT Body Mass Index 39.48 02/12/2025 1:42 PM EDT documented in this encounter Progress Notes * Anum Leavitt APRN - 02/12/2025 2:00 PM EDTAssociated Problem(s): Rheumatoid arthritis Acute onset [...] choice.. RA appears to be doing well. Her hands feel weaker. Tender joint count is 0, swollen joint count is 0 , physician global is 0 , visual analog pain scale is 9, pt global is 8. CDAI is 8-low disease activity. Prognosis is guarded Labs reviewed 11/06/2024, mildly elevated sed rate Labs ordered today Continue Humira. Most recent CT scan without noted change to prior. Pulmonology suspicion of RA ILD which is seemingly stable currently. She has another CT scan upcoming. Discussed with Dr. Vargas to continue Humira as long as pulmonology feels she is stable. If she has any worsening of disease we will plan to switch her to possibly rituximab or Abatacept. RTC 4 mo Orders: Comprehensive Metabolic Panel C-reactive Protein Sedimentation Rate CBC (No Diff) * Anum Leavitt APRN - 02/12/2025 2:00 PM EDTAssociated Problem(s): Immunosuppression due to drug therapy Humira. Tolerating well No recent infections. Methotrexate stopped. She flared after stopping and Dr. Maya previously suggested she restart at low-dose but she declined. * Anum Leavitt APRN - 02/12/2025 2:00 PM EDTAssociated Problem(s): History of melanoma In remission. * Anum Leavitt APRN - 02/12/2025 2:00 PM EDTAssociated Problem(s): Posterior tibial tendinitis of right lower extremity Improved . * Anum Leavitt APRN - 02/12/2025 2:00 PM EDT Images from the original note were not included. Office Follow Up Date: 02/12/2025 Patient Name: Magdy Moreno Date of : 1970 Referring Physician: No ref. provider found Chief Complaint: Rheumatoid arthritis History of Present Illness: Magdy Moreno is a 55 y.o. female who is here today for follow up on rheumatoid arthritis. 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 We Prescribe Humira She Tolerates Humira well. No infections. No problems with injections. Seeing pulmonary. Was on high dose prednisone. Off now. Not clear if dx COPD or RA lung. Today she reports feeling worse. She has been started on metformin 500 mg as well as eyedrops for glaucoma from other providers since her previous visit Her hips are her area of greatest concern. She has tried and failed Robaxin as well as was on a high dose steroid taper She reports the taper helped some but did not last. Subjective Review of Systems: Review of Systems positive for fatigue, dry mouth, GERD, good diarrhea, constipation, abdominal pain, shortness of breath, dry eye, abnormal sensitivity to light, eye itching, blurred vision, urinary frequency, urinary urgency, urinary incontinence, joint pain, joint swelling, back pain, lightheaded Medications: Current Outpatient Medications: Adalimumab (Humira, 2 Pen,) 40 MG/0.4ML Auto-injector Kit, Inject 40 mg under the skin into the appropriate area as directed Every 14 (Fourteen) Days., Disp: 2 each, Rfl: 4 albuterol sulfate HFA 108 (90 Base) MCG/ACT inhaler, INHALE TWO PUFFS BY MOUTH FOUR TIMES DAILY NEEDED FOR SHORTNESS OF BREATH OR wheezing, Disp: , Rfl: ALPRAZolam (XANAX) 0.5 MG tablet, Take 1 tablet by mouth 2 (Two) Times a Day As Needed for Anxiety., Disp: , Rfl: latanoprost (XALATAN) 0.005 % ophthalmic solution, INSTILL ONE DROP IN EACH EYE EVERY DAY AT BEDTIME, Disp: , Rfl: metFORMIN ER (GLUCOPHAGE-XR) 500 [...] list as appropriate. Objective Vital Signs: Vitals: 02/12/25 1342 BP: 108/64 BP Location: Left arm Patient Position: Sitting Cuff Size: Large Adult Pulse: 77 Resp: 20 Temp: 97.9 ??F (36.6 ??C) TempSrc: Infrared Weight: 88.7 kg (195 lb 9.6 oz) Height: 149.9 cm (59.02 ) PainSc: 9 PainLoc: Hip Comment: Primarily right hip w/ radiating pain, right ankle Body mass index is 39.48 kg/m??. Physical Exam: GEN.: The patient is [...] have no soft tissue swelling or tenderness. Knees have no palpable effusions. Ankles have no soft tissue swelling, synovitis,or significant deformities. 8 out of 18 fibromyalgia tender points present BACK: Straight without scoliosis. NEUROLOGIC: Gait and station are normal. Joint Exam 02/12/2025 Right Left Sternoclavicular Tender Tender Cervical Spine Tender Lumbar Spine Tender Hip Tender Tender Subtalar Tender Tender Patient Global: -- Provider Global: -- Assessment / Plan Assessment & Plan Rheumatoid [...] choice.. RA appears to be doing well. Her hands feel weaker. Tender joint count is 0, swollen joint count is 0 , physician global is 0 , visual analog pain scale is 9, pt global is 8. CDAI is 8-low disease activity. Prognosis is guarded Labs reviewed 11/06/2024, mildly elevated sed rate Labs ordered today Continue Humira. Most recent CT scan without noted change to prior. Pulmonology suspicion of RA ILD which is seemingly stable currently. She has another CT scan upcoming. Discussed with Dr. Vargas to continue Humira as long as pulmonology feels she is stable. If she has any worsening of disease we will plan to switch her to possibly rituximab or Abatacept. RTC 4 mo Orders: Comprehensive Metabolic Panel C-reactive Protein Sedimentation Rate CBC (No Diff) Immunosuppression due to drug therapy Humira. Tolerating well No recent infections. Methotrexate stopped. She flared after stopping and Dr. Maya previously suggested she restart at low-dose but she declined. History of melanoma In remission. Posterior tibial tendinitis of right lower extremity Improved . Fibromyalgia She has chronic joint and soft tissue pain. Symptoms are consistent with fibromyalgia She has tenderness above and below the waist She is currently on sertraline Could consider duloxetine, however I would have her discuss this with primary care his primary careis prescribing her sertraline currently will plan to try bilateral trochanteric bursa steroid injections initially as this is her area of greatest concern She enjoys walking however her hips are currently preventing her from doing so for extended periods Tobacco use She has stopped cigarettes and now is vaping very seldomly Post-menopausal DEXA ordered - Partial Hysterectomy 16years ago 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 Bilateral hip pain Has had bilateral hip pain for over a year consistently. She is tender to the touch. She has a tensunit at home She was offered PT but declined as she is doing home exercises. She likely has bursitis. if she would like to schedule bilateral trochanteric bursa injections she can anytime. Orders Placed This Encounter Procedures Comprehensive Metabolic Panel C-reactive Protein Sedimentation Rate CBC (No Diff) No orders of the defined types were placed in this encounter. Follow Up: Return for Next scheduled follow up. Anum Leavitt APRN [facility] [place] documented in this encounter Plan of Treatment Upcoming Encounters Date Type Department Care Team (Late st Contact Info) Description 05/09/2025 2:30 PM EST Office Visit [facility] [address] [place] [phone] Roman Maya MD [address] [place] [address] 08/20/2025 2:15 PM EDT Office Visit [facility] [address] [place] [phone] Roman Maya MD [address] [place] [address] 11/19/2025 1:30 PM EDT Office Visit [facility] [address] [place] [phone] Roman Maya MD [address] [place] [address] documented as of this encounter Goals Goal Patient Goal Type Associated Problems Recent Progress Patient-Stated? Author Specialty Pharmacy General Goal General On track(2024 12:33 PM EST) Paulino Lr, PharmD Note: Reduce number of flares and pain score. 11.7.25: Patient reports no flares while on Humira, she states pain is stable but she has multiple comorbidities which contributes to her pain. documented as of this encounter Procedures Procedure Name Priority Date/Time Associated Diagnosis Comments SEDIMENTATION RATE Routine 02/12/2025 2: 38 PM EDT Rheumatoid arthritis involving multiple sites with positive rheumatoid factor CBC (NO DIFF) Routine 02/12/2025 2:38 PM EDT Rheumatoid arthritis involving multiple sites with positive rheumatoid factor C-REACTIVE PROTEIN Routine 02/12/2025 2: 38 PM EDT Rheumatoid arthritis involving multiple sites with positive rheumatoid factor COMPREHENSIVE METABOLIC PANEL Routine 02/12/2025 2:38 PM EDT Rheumatoid arthritis involving multiple sites with positive rheumatoid factor documented in this encounter Results * CBC (No Diff) (02/12/2025 2:38 PM EDT) WBC 7.4 3.4 - 10.8 x10E3/uL [facility] RBC 4.74 3.77 - 5.28 x10E6/uL [facility] Hemoglobin 14.0 11.1 - 15.9 g/dL [facility] Hematocrit 42.5 34.0 - 46.6 % [facility] MCV 90 79 - 97 fL [facility] MCH 29.5 26.6 - 33.0 pg [facility] MCHC 32.9 31.5 - 35.7 g/dL [facility] RDW 12.8 11.7 - 15.4 % [facility] Platelets 329 150 - 450 x10E3/uL [facility] Blood 02/12/2025 2:38 PM EDT 02/12/2025 Narrative [facility]) - 02/13/2025 8:08 AM EDT Performed at: [facility] [id number] Combatant Swimmer: True Alvarado PhD, Phone: [phone] Anum Leavitt APRN LAB BLOOD ORDERABLES Final Result Performing Organization Address City/[facility]/ZIP Co de Phone Number [facility] ([facility]) [address] [place] [address], [place] [phone] [facility] [address] [place] [address], [place] [phone] * Sedimentation Rate (02/12/2025 2:38 PM EDT) Pathologist [facility] Sed Rate 26 0 - 40 mm/hr [facility] Blood 02/12/2025 2:38 PM EDT 02/12/2025 Narrative [facility] ([facility]) - 02/13/2025 8:08 AM EDT Performed at: 01 - [address] [id number] Combatant Swimmer: True Alvarado PhD, Phone: [phone] Anum Leavitt APRN LAB BLOOD ORDERABLES Final Result Performing Organization Address [facility]/ZIP Co de Phone Number [facility] (AMBULATORY) [address] [place] [address], [place] [phone] [facility] [address] [place] [address], [place] [phone] * C-reactive Protein (02/12/2025 2:38 PM EDT) [facility] C-Reactive Protein 9 0 - 10 mg/L [facility] Blood 02/12/2025 2:38 PM EDT 02/12/2025 Narrative [facility] ([facility]) - 02/13/2025 8:08 AM EDT Performed at: [address] [id number] Combatant Swimmer: True Alvarado PhD, Phone: [phone] Anum Leavitt APRN LAB BLOOD ORDERABLES Final Result Performing Organization Address City/[facility]/ZIP Co de Phone Number [facility] ([facility]UL[facility]) [address] [place] [address], [facility] [address] [place] [address], * (ABNORMAL) Comprehensive Metabolic Panel (02/12/2025 2:38 PM EDT) [facility] Glucose 101(H) 70 - 99 mg/dL [facility] BUN 10 6 - 24 mg/dL [facility] Creatinine 0.72 0.57 - 1.00 mg/dL [facility] EGFR Result 97 >59 mL/min/1.7 3 [facility] BUN/Creatinine Ratio 14 9 - 23 [facility] Sodium 140 134 - 144 mmol/L [facility] Potassium 4.6 3.5 - 5.2 mmol/L [facility] Chloride 102 96 - 106 mmol/L [facility] Total CO2 25 20 - 29 mmol/L [facility] Calcium 9.3 8.7 - 10.2 mg/dL [facility] Total Protein 7.2 6.0 - 8.5 g/dL [facility] Albumin 4.0 3.8 - 4.9 g/dL [facility] Globulin 3.2 1.5 - 4.5 g/dL [facility] Total Bilirubin 0.2 0.0 - 1.2 mg/dL [facility] Alkaline Phosphatase 73 49 - 135 IU/L [facility] AST (SGOT) 14 0 - 40 IU/L [facility] ALT (SGPT) 17 0 - 32 IU/L [facility] Blood 02/12/2025 2:38 PM EDT 02/12/2025 Narrative [facility] ([facility]) - 02/13/2025 8:08 AM EDT Performed at: 01 - [facility] [address] [place], [place] [id number] Combatant Swimmer: True Alvarado PhD, Phone: [phone] us Anum Leavitt APRN LAB BLOOD ORDERABLES Final Result [facility] ([facility]) [address] [place] [address], [facility] [address] [place] [address], documented in this encounter Visit Diagnoses Diagnosis Rheumatoid arthritis involving multiple sites with positive rheumatoid factor- Primary Immunosuppression due to drug therapy History of melanoma Personal history of malignant melanoma of skin Posterior tibial tendinitis of right lower extremity Fibromyalgia Unspecified myalgia and myositis Tobacco use Post-menopausal Asymptomatic postmenopausal status (age-related) (natural) Bilateral hip pain Pain in joint, pelvic region and thigh documented in this encounter Care Teams Photoengraver Apprentice Relationship Specialty Start Date End Date Andreea Bernabe APRN [address] [facility] [address] PCP - General Family Medicine 12/10/23 documented as of this encounter
--- OUTSIDE RECORDS SUMMARY | 2025-02-14 13:00 | XMS_ITS | Encounter Summary ---
Author Organization [facility] Address [address] [place] [address] Care Team Providers Care Pepper Cutter Name Role Phone Andreea Bernabe HOUSE CLEANER SUPERVISOR Primary Care Provid er Reason for Visit * Reason Comments Injections Encounter Details Date Type Department Care Team (Latest Contact Info) Description 02/14/2025 2:00 PM EDT Clinical Support [facility] RHEUM[facility]OLOGY [address] [phone] Ana Batista APRN [address] [phone] Bilateral hip pain (Primary Dx) Social History Tobacco Use Types Packs/Day Years [...] Sign Reading Time Taken Comments Blood Pressure 124/62 02/14/2025 1:50 PM EDT Pulse 81 02/14/2025 1:50 PM EDT Temperature 36.4 C (97.5 F) 02/14/2025 1:50 PM EDT Respiratory Rate - - Oxygen Saturation - - Inhaled Oxygen Concentration - - Weight 89.7 kg (197 lb 11.2 oz) 02/14/2025 1:50 PM EDT Height 149.9 cm (4' 11 ) 02/14/2025 1:50 PM EDT Body Mass Index 39.93 02/14/2025 1:50 PM EDT documented in this encounter Progress Notes * Ana Batista, HOUSE CLEANER SUPERVISOR - 02/14/2025 2:00 PM EDTAssociated Order(s): Arthrocentesis Post-Procedure Diagnose(s): Bilateral hip pain Images from the original note were not included. Office Visit Date: 02/14/2025 Patient Name: Magdy Moreno Date of : 1970 Referring Physician: No ref. provider found Chief Complaint: Chief Complaint Patient presents with Injections History of Present Illness: Magdy Moreno is a 55 y.o. female who is here today for bilateral trochanteric bursa steroid injections. She has failed conservative measures. She has not had either bursa injected within the last 3 months. Subjective Past Medical History: Past Medical History: Diagnosis Date Arthritis GERD (gastroesophageal reflux disease) Melanoma Plantar fasciitis of right foot Past Surgical History: Past Surgical History: Procedure Laterality Date CHOLECYSTECTOMY Right RADICAL HYSTERECTOMY Bilateral ROTATOR CUFF REPAIR Family History: Family History Problem Relation Name Age of Onset COPD Mother Breast cancer Mother Social History: Social History[1] Medications: Current Medications[2] Allergies: Allergies[3] I reviewed the patient's chief complaint, history of present illness, review of systems, past medical history, surgical history, family history, social history, medications and allergy list. Objective Vital Signs: Vitals: 02/14/25 1350 BP: 124/62 Pulse: 81 Temp: 97.5 ??F (36.4 ??C) Weight: 89.7 kg (197 lb 11.2 oz) Height: 149.9 cm (59 ) PainSc: 8 PainLoc: Hip Body mass index is 39.93 kg/m??. Defer to PCP Physical Exam: Physical Exam Constitutional: Appearance: Normal appearance. HENT: Head: Normocephalic and atraumatic. Eyes: Conjunctiva/sclera: Conjunctivae normal. Pupils: Pupils are equal, round, and reactive to light. Cardiovascular: Rate and Rhythm: Normal rate. Pulmonary: Effort: Pulmonary effort is normal. Musculoskeletal: Cervical back: Normal range of motion. Comments: Bilateral trochanteric bursa tender to palpation without warmth, erythema, effusions Skin: General: Skin is warm and dry. Neurological: General: No focal deficit present. Mental Status: She is alert and oriented to person, place, and time. Psychiatric: Mood and Affect: Mood normal. Behavior: Behavior normal. Thought Content: Thought content normal. Judgment: Judgment normal. Assessment / Plan Assessment & Plan Bilateral hip pain Bilateral trochanteric bursa steroid injections: 02/14/25 See procedure documentation and MAR Consent discussed and signed Arthrocentesis Date/Time: 02/14/2025 1:55 PM Performed by: Ana Batista APRN Authorized by: Ana Batista APRN Indications: pain Location: bilateral trochanteric bursa. Local anesthesia used: yes Anesthesia: Local anesthesia used: yes Local Anesthetic: topical anesthetic (ethyl chloride) Sedation: Patient sedated: no Preparation: Aseptic technique with iodine site preparation. Needle gauge: 25 G. Ultrasound guidance: no Meds administered: 80 mg methylPREDNISolone acetate (DEPO-medrol) injection 80 mg/mL; 80 mg methylPREDNISolone acetate (DEPO-medrol) injection 80 mg/mL; 0.5 mL lidocaine 1 % Patient tolerance: patient tolerated the procedure well with no immediate complications Follow Up: Return for Next scheduled follow up. Ana Batista APRN [facility] Rheumatology [facility] documented in this encounter Plan of Treatment Upcoming Encounters Date Type Department Care Team (Late st Contact Info) Description 05/09/2025 2:30 PM EST Office Visit [facility] RHEUMATOLOGY [address] [phone] Roman Maya MD [address] [place] [phone] 08/20/2025 2:15 PM EDT Office Visit [facility] RHEUM[facility]Y [address] [phone] Roman Maya MD [address] [address] 11/19/2025 1:30 PM EDT Office Visit [facility] RHEUMATOLOGY 330 [facility] [address] [place] [address] Roman Maya MD 330 [facility] [address] [place], [place] [phone] documented as of this encounter Goals Goal Patient Goal Type Associated Problems Recent Progress Patient-Stated? Author Specialty Pharmacy General Goal General On track(2024 12:33 PM EST) No Paulino Conley, PharmD Note: Reduce number of flares and pain score. 11.7.25: Patient reports no flares while on Humira, she states pain is stable but she has multiple comorbidities which contributes to her pain. documented as of this encounter Procedures Procedure Name Priority Date/Time Associated Diagnosis Comments JOINT ASPIRATION/INJECTIO N Routine 02/14/2025 1:55 PM EDT Bilateral hip pain documented in this encounter Results * HC ARTHROCENTESIS MAJOR JOINT (02/14/2025 1:55 PM EDT) Narrative Ana Batista APRN - 02/14/2025 1:55 PM EDT Ana Batista APRN 02/14/2025 2:04 PM Arthrocentesis Date/Time: 02/14/2025 1:55 PM Performed by: Ana Batista APRN Authorized by: Ana Batista APRN Indications: pain Location: bilateral trochanteric bursa. Local anesthesia used: yes Anesthesia: Local anesthesia used: yes Local Anesthetic: topical anesthetic (ethyl chloride) Sedation: Patient sedated: no Preparation: Aseptic technique with iodine site preparation. Needle gauge: 25 G. Ultrasound guidance: no Meds administered: 80 mg methylPREDNISolone acetate (DEPO-medrol) injection 80 mg/mL; 80 mg methylPREDNISolone acetate (DEPO-medrol) injection 80 mg/mL; 0.5 mL lidocaine 1 % Patient tolerance: patient tolerated the procedure well with no immediate complications us Ana Batista APRN PROCEDURE/MINOR SURGICAL ORDER NATALIE Final Result documented in this encounter Visit Diagnoses Diagnosis Bilateral hip pain- Primary Pain in joint, pelvic region and thigh documented in this encounter Administered Medications Inactive Administered Medications - up to 3 most recent administrations Medication Order MAR Action Action Date Dose Rate Site lidocaine (XYLOCAINE) 1 % injection 0.5 mL 0.5 mL, One-Time Injection, Starting on Wed02/14/25 at 1355, For 1 doseIndications:Bilateral hip pain Given 02/14/2025 1:55 PM EDT 0.5 mL lidocaine PF 1% (XYLOCAINE) injection 0.5 mL 0.5 mL, Intra-articular, Once, On Wed02/14/25 at 1445, For 1 doseIndications:Bilateral hip pain Given 02/14/2025 1:57 PM EDT 0.5 mL lidocaine PF 1% (XYLOCAINE) injection 0.5 mL 0.5 mL, Intra-articular, Once, On Wed02/14/25 at 1445, For 1 doseIndications:Bilateral hip pain Given 02/14/2025 1:55 PM EDT 0.5 mL methylPREDNISolone acetate (DEPO-medrol) injection 80 mg 80 mg, Intra-articular, Once, On Wed02/14/25 at 1445, For 1 dose, Caution: Look alike/sound alike drug alertIndications:Bilateral hip pain Given 02/14/2025 1:57 PM EDT 80 mg Given 02/14/2025 1:55 PM EDT 80 mg methylPREDNISolone acetate (DEPO-medrol) injection 80 mg 80 mg, Intra-articular, Once, On Wed02/14/25 at 1445, For 1 dose, Caution: Look alike/sound alike drug alertIndications:Bilateral hip pain Given 02/14/2025 1: 56 PM EDT 80 mg Given 02/14/2025 1:55 PM EDT 80 mg documented in this encounter Care Teams Pepper Cutter Relationship Specialty Start Date End Date Andreea Bernabe APRN [address] [facility] [address] [place] [address] PCP - General Family Medicine 12/10/23 documented as of this encounter
--- OUTSIDE RECORDS SUMMARY | 2025-03-19 12:55 | XMS_ITS | Encounter Summary ---
Author Organization [facility] Address [address] [place] [address] Care Team Providers Care Cash Controller Name Role Phone Unavailable Primary Care Provider Unavailabl e Encounter Details Date Type Department Care Team (Late st Contact Info) Description 03/16/2024 Lab Requisition [facility] Oral Pathology [address] [place] [address] Antwan Cole, DMD [address] [place] [address] [place], [place] [phone] Varicose veins of other specified sites Social [...] clinical diagnosis is Varix. 03/17/2024 9:53 AM [facility] ORAL PATHOLOGY Microscopic Description Microscopic examination reveals sections of fibrous connective tissue and adipose containing enlarged, thin-walled, endothelial-li damon ectatic vessels with erythrocytes. 03/17/2024 9:53 AM [facility] ORAL PATHOLOGY Final Diagnosis Upper Lip: VARIX, EXCISIONAL BIOPSY I86.8 03/17/2024 9:53 AM EST [facility] ORAL [facility]OLOG[facility] at 0953 EST Tissue Upper lip structure / Unknown 03/14/2024 03/16/2024 9:53 AM EST us Antwan Cole DMD LAB PATHOLOGY ORDERABLES Fi nal Result [facility] OR[facility] [address] [place] [address] documented in this encounter Visit Diagnoses Diagnosis Varicose veins of other specified sites documented in this encounter
--- OUTSIDE RECORDS SUMMARY | 2025-03-19 12:55 | XMS_ITS ---
Author Organization [facility] Address [address] [place] [address] Care Team Providers Care [employer] Assistant Football Coach Name Role Phone Andreea Bernabe APRN Primary Care Provid er Rheumatology Status:Enrolled (Active) Start date:01/04/2024 Enrollment date:01/04/2024 Enrollment reason:Converted fill to Current support & services provided:Clinical Assessment, Refill Coordination , Benefits Investigation, [facility] Dispensing , In-person/Telemed Visit Required Linked medications:Adalimumab (Active) Linked problems:Rheumatoid arthritis (Active) Case Team Name Relationship Phone Sandy Puckett Od Grinder Operator Respiratory Care Program Director Continued Care and Services Coordination
--- OUTSIDE RECORDS SUMMARY | 2025-03-19 12:55 | XMS_ITS | Encounter Summary ---
Author Organization [facility] Address [address] [place] [address] Care Team Providers Care Compliance Field Technician Name Role Phone Andreea Bernabe PROJECT INSPECTOR Primary Care Provid er Encounter Details Date Type Department Care Team (Latest Contact Info) Description 02/14/2025 Travel Social History Tobacco Use Types Packs/Day [...] Description 05/09/2025 2:30 PM EST Office Visit [facility] RHEUMATOLOGY [address] [phone] Roman Maya MD [address] [place] [address] 08/20/2025 2:15 PM EDT Office Visit [facility] RHEUMATOLOGY [address] [phone] Roman Maya MD [address] [place] [address] 11/19/2025 1:30 PM EDT Office Visit [facility] RHEUMATOLOGY 330 [facility] [address] [place] [address] Roman Maya MD 330 [facility] [address] [place] [address] documented as of this encounter Goals Goal [...] her pain. documented as of this encounter Visit Diagnoses Not on filedocumented in this encounter Care Teams Compliance Field Technician Relationship Specialty Start Date End Date Andreea Bernabe APRN 1210 [facility] [address] [place] [address] PCP - General Family Medicine 12/10/23 documented as of this encounter
--- OUTSIDE RECORDS SUMMARY | 2025-03-19 12:55 | XMS_ITS | Encounter Summary ---
Author Organization [facility] Address [address] [place] [address] Care Team Providers Care Surgical Garment Assembler Name Role Phone Andreea Bernabe WINDOWS SYSTEMS ADMIN Primary Care Provid er Encounter Details Date Type Department Care Team (Late Contact Info) Description 07/10/2024 Results Follow-Up [facility] RHEUMATOLOGY [address] [place] [phone] Roman Maya MD [address] [place] [phone] Social History Tobacco Use Types Packs/Day Years [...] Encounters Date Type Department Care Team (Late Contact Info) Description 05/09/2025 2:30 PM EST Office Visit [facility] RHEUMATOLOGY [address] [phone] Roman Maya MD [address] [place] [address] 08/20/2025 2:15 PM EDT Office Visit [facility] RHEUMATOLOGY [address] [phone] Roman Maya MD [address] [place] [phone] 11/19/2025 1:30 PM EDT Office Visit [facility] RHEUMATOLOGY [address] [phone] Roman Maya MD [address] [place] [phone] documented as of this encounter Visit Diagnoses Not on filedocumented in this encounter Care Teams Surgical Garment Assembler Relationship Specialty Start Date End Date Andreea Bernabe APRN 1210 [facility] [address] [facility] [address] [place] [address] PCP - General Family Medicine 12/10/23 documented as of this encounter
--- OUTSIDE RECORDS SUMMARY | 2025-03-19 12:55 | XMS_ITS | Encounter Summary ---
Author Organization [facility] Address [address] [place] [address] Care Team Providers Care Window Shade Installer Name Role Phone Andreea Bernabe MED SPEC Primary Care Provid er Encounter Details Date Type Department Care Team (Latest Contact Info) Description 02/12/2025 Travel Social History Tobacco Use Types Packs/Day [...] Description 05/09/2025 2:30 PM EST Office Visit [facility] RHEUMATOLOGY [address] [phone] Roman Maya MD [address] [place] [address] 08/20/2025 2:15 PM EDT Office Visit [facility] RHEUMATOLOGY [address] [phone] Roman Maya MD [address] [place] [address] 11/19/2025 1:30 PM EDT Office Visit [facility] RHEUMATOLOGY 330 [facility] [address] [place] [address] Roman Maya MD 330 [facility] [address] [place] [address] documented as of this encounter Goals Goal [...] on filedocumented in this encounter Care Teams Window Shade Installer Relationship Specialty Start Date End Date Andreea Bernabe APRN 1210 [facility] [address] [place] [address] PCP - General Family Medicine 12/10/23 documented as of this encounter
--- OUTSIDE RECORDS SUMMARY | 2025-03-19 12:55 | XMS_ITS | Clinical Summary ---
Author Organization [facility] Address [address] [place] [address] Care Team Providers Care Manager Distribution Center Name Role Phone Unavailable Primary Care Provider Unavailabl e Social History Tobacco Use Types Packs/Day Years Used Date Smoking Tobacco: Never Assessed Comments Unknown Sex and Gender Information Value Date Recorded Sex Assigned at Not on file Legal Sex Female 8:21 PM EDT Gender Identity Not on file Sexual Orientation Not on file Plan of Treatment Not on file Insurance [place] [address] [facility] MED[facility]
--- OUTSIDE RECORDS SUMMARY | 2025-03-19 12:56 | XMS_ITS | Encounter Summary ---
Author Organization [facility] Address [address] [place] [address] Care Team Providers Care Drip Pumper Name Role Phone Andreea Bernabe SUPERVISOR URANIUM PROCESSING Primary Care Provid er Encounter Details Date Type Department Care Team (Late Contact Info) Description 02/13/2025 Results Follow-Up [facility] RHEUMATOLOGY [address] [phone] Anum Leavitt APRN [address] [phone] Social History Tobacco Use Types Packs/Day Years [...] Description 05/09/2025 2:30 PM EST Office Visit [facility] RHEUMATOLOGY [address] [phone] Roman Maya MD [address] [address] 08/20/2025 2:15 PM EDT Office Visit [facility] RHEUMATOLOGY [address] [phone] Roman Maya MD [address] [address] 11/19/2025 1:30 PM EDT Office Visit [facility] RHEUMATOLOGY [address] [phone] Roman Maya MD [address] [place] [phone] documented as of this encounter Goals Goal [...] on filedocumented in this encounter Care Teams Drip Pumper Relationship Specialty Start Date End Date Andreea Bernabe APRN 1210 [facility] [address] [place] [address] PCP - General Family Medicine 12/10/23 documented as of this encounter
--- OUTSIDE RECORDS SUMMARY | 2025-03-19 12:56 | XMS_ITS | Encounter Summary ---
Author Organization [facility] Address [address] [place] [address] Care Team Providers Care Freezer Laboratory Technician Name Role Phone Andreea Bernabe DIGGING MACHINE OPERATOR Primary Care Provid er Reason for Visit * Reason Comments Med Refill Encounter Details Date Type Department Care Team ([facility] Contact Info) Description 01/15/2025 Refill [facility] [address] [facility] [address] [place] [phone] Anum Leavitt APRN 330 [facility] [address] [place] [address] Social History Tobacco Use Types Packs/Day [...] Description 05/09/2025 2:30 PM EST Office Visit [facility] RHEUMATOLOGY 330 [facility] [address] [place] [phone] Roman Maya MD 330 [facility] [address] [place] [address] 08/20/2025 2:15 PM EDT Office Visit [facility] RHEUMATOLOGY [address] [phone] Roman Maya MD [address] [phone] 11/19/2025 1:30 PM EDT Office Visit [facility] RHEUMATOLOGY [address] [phone] Roman Maya MD [address] [place] [address] documented as of this encounter Goals Goal [...] on filedocumented in this encounter Care Teams Freezer Laboratory Technician Relationship Specialty Start Date End Date Andreea Bernabe APRN 1210 [facility] [place] [facility] [address] [place] [address] PCP - General Family Medicine 12/10/23 documented as of this encounter
--- OUTSIDE RECORDS SUMMARY | 2025-03-19 12:56 | XMS_ITS | Encounter Summary ---
[facility] [address] [place] [address] Care Team Providers Care Reporting Manager Name Role Phone Andreea Bernabe PRINTER SLOTTER OPERATOR Primary Care Provid er Encounter Details Date Type Department Care Team (Late Contact Info) Description 11/09/2024 Results Follow-Up [facility] RHEUMATOLOGY [address] [phone] Anum Leavitt APRN [address] [phone] Social History Tobacco Use Types Packs/Day Years [...] Description 05/09/2025 2:30 PM EST Office Visit [facility] RHEUMATOLOGY [address] [phone] Roman Maya MD [address] [address] 08/20/2025 2:15 PM EDT Office Visit [facility] RHE[facility]OLOG[facility] [address] [phone] Roman Maya MD [address] [address] 11/19/2025 1:30 PM EDT Office Visit [facility] RHEUM[facility]OLOG[facility] [address] [phone] Roman Maya MD [address] [place] [phone] documented as of this encounter Goals Goal [...] on filedocumented in this encounter Care Teams Reporting Manager Relationship Specialty Start Date End Date Andreea Bernabe APRN 1210 [facility] [address] [place] [address] PCP - General Family Medicine 12/10/23 documented as of this encounter
--- OUTSIDE RECORDS SUMMARY | 2025-03-19 12:56 | XMS_ITS | Clinical Summary ---
Author Organization [facility] Address [address] [place] [address] Care Team Providers Care Hvac Commercial Salesperson Name Role Phone Andreea Bernabe TISHA Primary [...] FOR SHORTNESS OF BREATH OR wheezing Active metFORMIN ER (GLUCOPHAGE-XR) 500 MG 24 hr tablet Take 1 tablet by mouth Daily. 5 Active Adalimumab (Humira, 2 Pen,) 40 MG/0.4ML Auto-injector Kit Inject 40 mg under the skin into the appropriate area as directed Every 14 (Fourteen) Days. 2 each 4 03/05/2025 2:33 PM EST 5 Active latanoprost (XALATAN) 0.005 % ophthalmic solution INSTILL ONE DROP IN EACH EYE EVERY DAY AT BEDTIME 5 Active Active Problems Problem Noted Date Diagnosed Date Immunosuppression due to drug therapy 12/20/2023 Assessment & Plan (02/12/2025 2:28 PM EDT): Humira. Tolerating well No recent infections. Methotrexate stopped. She flared after stopping and Dr. Maya previously suggested she restart at low-dose but she declined. Assessment & Plan (11/09/2024 9:50 AM EDT): Humira. Tolerating well No recent infections. Assessment & [...] History of melanoma 12/20/2023 Assessment & Plan (02/12/2025 2:28 PM EDT): In remission. Assessment & Plan (11/06/2024 1:16 PM EDT): [...] lower extre mity 12/20/2023 Assessment & Plan (02/12/2025 2:28 PM EDT): Improved . Assessment & Plan (11/06/2024 4:13 PM EDT): Improved . Assessment & Plan (06/28/2024 2:00 PM EST): I suggested [id number] orthotics. Assessment & Plan (12/20/2023 5:27 PM EDT): I suggested [id number] orthotics. Rheumatoid arthritis 12/14/2023 Assessment & Plan (02/12/2025 2:28 PM EDT): Acute onset 11/10 with pain and [...] C-reactive Protein Sedimentation Rate CBC (No Diff) Assessment & Plan (11/09/2024 9:50 AM EDT): [...] Humira. I will get records from her transformer maker. If RA lung disease could consider Rituximab or possibly Abatacept. RTC 3 mo Assessment & Plan (12/21/2023 12:01 PM EDT): Acute onset 11/10 with pain and [...] Humira. I will get records from her transformer maker. RTC 3 mo Encounters Date Type Department Care Team Description 02/14/2025 2:00 PM EDT Clinical Support [facility] [address] [place] [phone] Ana Batista APRN Bilateral hip pain (Primary Dx) 02/14/2025 Travel 02/13/2025 Results Follow-Up [facility] [address] [place] [phone] Anum Leavitt APRN 02/12/2025 2:00 PM EDT Office Visit [facility] [address] [phone] Anum Leavitt APRN Rheumatoid arthritis involving multiple sites with positive rheumatoid factor (Primary Dx); Immunosuppression due to drug therapy; History of melanoma; Posterior tibial tendinitis of right lower extremity; Fibromyalgia; Tobacco use; Post-menopausal; Bilateral hip pain 02/12/2025 Travel 01/15/2025 Refill [facility] [address] [facility] [address] [place] [address] Anum Leavitt APRN from Last 3 Months Immunizations Immunization Administration Dates Next Due Hep A, 2 Dose 10/23/2018,03/30/2018 Td (TDVAX) 06/30/1996 Family History Medical History Relation Name Comments [...] F) 02/14/2025 1:50 PM EDT Respiratory Rate 20 02/12/2025 1:42 PM EDT Oxygen Saturation - - Inhaled Oxygen Concentration - - Weight 89.7 kg (197 lb 11.2 oz) 02/14/2025 1:50 PM EDT Height 149.9 cm (4' 11 ) 02/14/2025 1:50 PM EDT Body Mass Index 39.93 02/14/2025 1:50 PM EDT Plan of Treatment Upcoming Encounters Date Type Department Care Team (Late st Contact Info) Description 05/09/2025 2:30 PM EST Office Visit [facility] [address] [phone] Roman Maya MD [address] [place] [phone] 08/20/2025 2:15 PM EDT Office Visit [facility] [address] [phone] Roman Maya MD [address] [place] [phone] 11/19/2025 1:30 PM EDT Office Visit [facility] 330 [facility] [address] [place] [address] Roman Maya MD [address] [facility] [address] [place] [address] Health Maintenance Due Date Last Done Comments Annual Gynecologic Pelvic and Breast Exam 1970 ZOSTER VACCINE (1 of 2) 01/30/1987 COLOGUARD 01/30/2013 COLON CANCER SCREENING 5 YEA R SIGMOIDOSCOPY 01/30/2013 COLONOSCOPY 01/30/2013 COLORECTAL CANCER SCREENING 01/30/2013 CT COLONOGRAPHY 01/30/2013 FECAL OCCULT BLOOD TEST 01/30/2013 FIT Testing (1 year) 01/30/2013 MAMMOGRAM 09/28/2020 09/28/2018, 09/28/2018 ANNUAL WELLNESS VISIT 08/27/2023 HEPATITIS C SCREENING 08/27/2023 INFLUENZA VACCINE 11/24/2024 TDAP/TD VACCINES (3 - Td or Tdap) 12/04/2034 025, 06/30/1996 Pneumococcal Vaccine 50+ Completed 12/04/2024 Goals Goal Patient Goal Type Associated Problems Recent Progress Patient-Stated? Author Specialty Pharmacy General Goal General On track(2024 12:33 PM EST) No Paulino Conley, PharmD Note: Reduce number of flares and pain score. 11.7.25: Patient reports no flares while on Humira, she states pain is stable but she has multiple comorbidities which contributes to her pain. Procedures Procedure Name Priority Date/Time Associated Diagnosis Comments JOINT ASPIRATION/INJECTION Routine 02/14/2025 1:55 PM EDT Bilateral hip pain CBC (NO DIFF) Routine 02/12/2025 2:38 PM EDT Rheumatoid arthritis involving multiple sites with positive rheumatoid factor SEDIMENTATION RATE Routine 02/12/2025 2: 38 PM EDT Rheumatoid arthritis involving multiple sites with positive rheumatoid factor C-REACTIVE PROTEIN Routine 02/12/2025 2: 38 PM EDT Rheumatoid arthritis involving multiple sites with positive rheumatoid factor COMPREHENSIVE METABOLIC PANEL Routine 02/12/2025 2:38 PM EDT Rheumatoid arthritis involving multiple sites with positive rheumatoid factor DEXA BONE DENSITY AXIAL Routine 02/12/2025 1:28 PM EDT Post-menopausal from Last 3 Months Results * HC ARTHROCENTESIS MAJOR JOINT (02/14/2025 [...] APRN PROCEDURE/MINOR SURGICAL ORDER NATALIE Final Result * Sedimentation Rate (02/12/2025 2:38 PM EDT) Sed Rate 26 0 - 40 mm/hr [facility] Blood 02/12/2025 2:38 PM EDT 02/12/2025 Narrative [facility] ([facility]) - 02/13/2025 8:08 AM EDT Performed at: - [address] [id number] Casing Tester: True Alvarado PhD, Phone: [phone] Anum Leavitt APRN LAB BLOOD ORDERABLES Final Result Performing Organization Address [facility]/ZIP Co de Phone Number [facility] ([facility]ATORY) [address] [place] [address], [facility] [address] [place] [address], * CBC (No Diff) (02/12/2025 2:38 PM [...] 8:08 AM EDT Performed at: 01 - [facility] [address] [place] [id number] Casing Tester: True Alvarado PhD, Phone: [phone] Anum Leavitt APRN LAB BLOOD ORDERABLES Final Result [facility] ([facility]) [address] [place] [address], [facility] [address] [place] [address], * C-reactive Protein (02/12/2025 2:38 PM EDT) C-Reactive Protein 9 0 - 10 mg/L [facility] Blood 02/12/2025 2:38 PM EDT 02/12/2025 Narrative [facility] ([facility]) - 02/13/2025 8:08 AM EDT Performed at: 01 - [facility] [address] [facility], [place], [place] [id number] Casing Tester: True Alvarado PhD, Phone: [phone] us Anum Leavitt APRN LAB BLOOD ORDERABLES Final Result [facility] ([facility]) [address] [place] [address], [place] [phone] [facility] [address] [place] [address], * (ABNORMAL) Comprehensive Metabolic Panel (02/12/2025 2:38 PM EDT) Pathologist [facility] Glucose 101(H) 70 - 99 mg/dL [facility] [...] 02/12/2025 2:38 PM EDT 02/12/2025 Narrative [facility] ([facility]AT[facility]) - 02/13/2025 8:08 AM EDT Performed at: 01 - [facility] [address] [place], [place] [id number] Casing Tester: True Alvarado PhD, Phone: [phone] Anum Leavitt MACHINE ETCHER LAB BLOOD ORDERABLES Final Result [facility] [address] [place] [address], [facility] [address] [place] [address], * DEXA Bone Density Axial (02/12/2025 1:28 PM EDT) Anatomical Region Laterality Modality Wrist, Hip, L-spine N/A Bone Density 02/12/2025 1:50 PM EDT Impressions 02/15/2025 5:17 PM EDT Osteopenia of the L1-L4 vertebrae, and femoral necks bilaterally. The ten year fracture risk assessment is calculated at 19% for major systemic osteoporotic fracture and 1.3% for a hip fracture. Less than 3% risk in the [place] for hip fracture and less than 20% risk of any systemic osteoporotic fracture is considered less than the threshold for where pharmacological therapy is recommended by the National Osteoporosis Foundation. All the treatment decisions require clinical judgment and consideration of individual patient factors, including patient preferences, co-morbidities, previous drug use, risk factors not captured in the FRAX model (frailty, falls, vitamin D deficiency, increased bone turnover, interval significant decline in bone density) and possible under or over estimation of fracture risk by FRAX. Approaches to reduce osteoporosis related fracture risk include optimizing calcium and vitamin D status, appropriate weight bearing exercises and fall-prevention measurements. The National Osteoporosis Foundation recommends (http://www.nof.org/hcp/practice/yisuaita-jzv-bnbjvhyx-guidelines/clinicians-tricia de) that FDA-approved medical therapies be considered in postmenopausal women and men aged equal or greater than 50 years with : a) hip or vertebral (clinical or morphometric) fracture; b) T-score of -2.5 or less at the spine or hip; c) Ten-year fracture probability by FRAX of greater than 3% for hip fracture of greater than 20% for major osteoporotic fracture. Secondary causes of bone loss should be evaluated if clinically indicated since the etiology of low BMD cannot be determined by BMD measurement alone. FOLLOWUP: Consider repeating the study in 2-3 years to reassess the patient's status or sooner if there is some new clinical indication. INTERVAL CHANGE: There were no equivalent studies available for comparison. At this facility, the least significant change in the BMD at the left hip with 95% confidence is 0.021527 gm/cm2 at the hip and 0.665330 g/cm2 at the lumbar spine. Report dictated by: Candace Moreno PA-c I have personally reviewed this case and agree with the findings above: Electronically Signed: Keegan Mattson MD 02/15/2025 5:17 PM EDT Workstation ID: [id number] Narrative 02/15/2025 5:17 PM EDT DUAL-ENERGY X-RAY ABSORPTIOMETRY (DXA) INDICATION: Postmenopausal, screening for osteoporosis, parental hip fracture, height loss, inflammatory bowel disease, hysterectomy, rheumatoid arthritis COMPARISON: There are no equivalent studies available for comparison PROCEDURE: A DXA scan was performed using a Hologic densitometer. The lumbar spine L1-L4 was evaluated as well as bilateral total hip. The T-score compares the patient's bone mineral density with the peak bone mass of young normal patients. According to criteria established by the World Health Organization, patients with T-scores between 1.0 and 2.5 standard deviations BELOW the mean are osteopenic (low bone mass). Patients with T-scores EQUAL TO OR GREATER than 2.5 standard deviations below the mean are osteoporotic. The Z-score compares the patient bone mineral density with age and sex matched peers. According to the International Society for Clinical Densitometry's 2007 consensus conference: In women prior to menopause and men less than age 50, Z-scores, not T-scores are preferred. A Z-score of -2.0 or lower is defined as below the expected range for age and a Z-score above -2.0 is within the expected range for age. The WHO diagnostic criteria may be applied in women in the menopausal transition. Osteoporosis cannot be diagnosed in men under age 50 on the basis of BMD alone. TECHNICAL QUALITY: The study is of good technical quality. RESULTS: Lumbar Spine: The BMD measured in the L1-L4 region is 0.929 g/cm2. The average T-score is -1.1. The Z-score is 0.1. Total Hip: The BMD measured at the left total proximal femur is 0.966 g/cm2. The T-score is 0.2. The Z-score is 1.0. Femoral Neck: The BMD measured at the left femoral neck is 0.622 g/cm2. The T-score is -2.0. The Z-score is -0.9. Total Hip: The BMD measured at the right total proximal femur is 0.945 g/cm2. The T-score is 0.0. The Z-score is 0.8. Femoral neck: The BMD measured at the right femoral neck is 0.616 g/cm2. The T score is -2.1. The Z score is -0.9. Procedure Note Keegan Mattson MD - 02/15/2025 DUAL-ENERGY X-RAY ABSORPTIOMETRY (DXA) INDICATION: Postmenopausal, screening for osteoporosis, parental hipfracture, height loss, inflammatory bowel disease, hysterectomy,rheumatoid arthritis COMPARISON: There are no equivalent studies available for comparison PROCEDURE: A DXA scan was performed using a Hologic densitometer. The lumbar spine L1-L4 was evaluated as well as bilateral total hip. The T-score compares the patient's bone mineral density with the peak bonemass of young normal patients. According to criteria established by the[facility] Health Organization, patients with T-scores between 1.0 and 2.5standard deviations BELOW the mean are osteopenic (low bone mass). Patients with T-scores EQUAL TO ORGREATER than 2.5 standard deviations below the mean are osteoporotic. The Z-score compares the patient bone mineral density with age and sexmatched peers. According to the International Society for ClinicalDensitometry's 2007 consensus conference: In women prior to menopause andmen less than age 50, Z-scores, not T-scores are preferred. A Z-score of -2.0 or lower is defined as belowthe expected range for age and a Z-score above -2.0 is within theexpected range for age. The WHO diagnostic criteria may be applied inwomen in the menopausal transition. Osteoporosis cannot be diagnosed in men under age 50 on the basis of BMDalone. TECHNICAL QUALITY: The study is of good technical quality. RESULTS: Lumbar Spine: The BMD measured in the L1-L4 region is 0.929 g/cm2. Theaverage T- score is -1.1. The Z-score is 0.1. Total Hip: The BMD measured at the left total proximal femur is 0.966g/cm2. The T-score is 0.2. The Z-score is 1.0. Femoral Neck: The BMD measured at the left femoral neck is 0.622 g/cm2.The T- score is -2.0. The Z-score is -0.9. Total Hip: The BMD measured at the right total proximal femur is 0.945g/cm2. The T-score is 0.0. The Z-score is 0.8. Femoral neck: The BMD measured at the right femoral neck is 0.616 g/cm2.The T score is -2.1. The Z score is -0.9. IMPRESSION: Osteopenia of the L1-L4 vertebrae, and femoral necks bilaterally. The ten year fracture risk assessment is calculated at 19% for majorsystemic osteoporotic fracture and 1.3% for a hip fracture. Less than 3%risk in the [place] for hip fracture and less than 20% risk of anysystemic osteoporotic fracture is considered less than the threshold for where pharmacological therapy isrecommended by the National Osteoporosis Foundation. All the treatment decisions require clinical judgment and consideration ofindividual patient factors, including patient preferences, co-morbidities,previous drug use, risk factors not captured in the FRAX model (frailty,falls, vitamin D deficiency, increased bone turnover, interval significant decline in bone density) andpossible under or over estimation of fracture risk by FRAX. Approaches toreduce osteoporosis related fracture risk include optimizing calcium andvitamin D status, appropriate weight bearing exercises and fall-prevention measurements. The NationalOsteoporosis Foundation recommends(http://www.nof.org/hcp/practice/zvajqqvn-kvc-pwwzcpyg-guidelines/clin ician s-guide) that FDA-approved medical therapies be considered in postmenopausal women and men aged equal or greater than 50 years with :a) hip or vertebral (clinical or morphometric) fracture; b) T-score of-2.5 or less at the spine or hip; c) Ten-year fracture probability by FRAXof greater than 3% for hip fracture of greater than 20% for major osteoporotic fracture. Secondary causes of bone loss should be evaluated if clinically indicatedsince the etiology of low BMD cannot be determined by BMD measurementalone. FOLLOWUP: Consider repeating the study in 2-3 years to reassess thepatient's status or sooner if there is some new clinical indication. INTERVAL CHANGE: There were no equivalent studies available forcomparison. At this facility, the least significant change in the BMD at the left hipwith 95% confidence is 0.816233 gm/cm2 at the hip and 0.356028 g/cm2 atthe lumbar spine. Report dictated by: Candace Moreno PA-c I have personally reviewed this case and agree with the findings above: Electronically Signed: Keegan Mattson MD 02/15/2025 5:17 PM EDT Workstation ID: [id number] Anum Leavitt MACHINE ETCHER IMG DXA ORDERABLES Final Re sult from Last 3 Months Insurance [employer] MEDICARE ADVANTAGE PPO MEDICARE A & B Care Teams Hvac Commercial Salesperson Relationship Specialty Start Date End Date Andreea Bernabe APRN [address] [place] [address] [place] [id number] PCP - General Family Medicine 12/10/23
--- OUTSIDE RECORDS SUMMARY | 2025-03-19 12:56 | XMS_ITS | Clinical Summary ---
Author Organization [facility] Address [address] [place] [address], [address] [place] [address] Care Team Providers Care Doper Name Role Phone Andreea Bernabe APRN - BOAT WORKER Primary Care P [facility] Social History Tobacco Use Types Packs/Day Years Used Date Smoking Tobacco: Never Assessed Comments Unknown Sex and Gender Information Value Date Recorded Sex Assigned at Not on file Legal Sex Female 8:13 AM EDT Gender Identity Not on file Sexual Orientation Not on file Plan of Treatment Not on file Care Teams Doper Relationship Specialty Start Date End Date Andreea Bernabe APRN - NP [address] [facility] [address] [place] [id number] PCP - General 12/19/20
--- NOTE | 2025-03-19 13:00 | CT_ITS ---
FINAL REPORT TECHNIQUE: Thin section axial images were obtained through the lungs using a low-dose technique per lung cancer screening protocol. Reconstruction images were obtained using the axial data. Exam was performed using dose reduction technique. CLINICAL HISTORY: lung cancer screening current smoker 1ppd x40 years COMPARISON: CT low-dose 05/03/[address] chest 03/17/2024 FINDINGS: CTDLvol: 2.90 DLP: 96.38 Current smoker 40 pack year history Lungs: There is a 3 mm right apical nodule on series 4, image 11, not well seen on the previous exam. Right lower lobe nodule on image 39 of series 4 is stable measuring 4 mm. Again seen are ground-glass opacities with subpleural and basilar predominance. No other pulmonary nodules or masses identified. No consolidations. Lymph nodes: No thoracic lymphadenopathy. Mediastinum: Heart size is normal. Prominent coronary artery calcifications. Pleura/pericardium: No pleural or pericardial effusion. Other: Enlarged fatty liver. IMPRESSION: New 3 mm right apical nodule and stable right lower lobe nodule. Modifier S: Prominent coronary artery calcifications and changes likely related to interstitial lung disease. Lung RADS: 2S Recommendation: 12 month follow-up low-dose chest CT Reviewed, Interpreted and Dictated by Brandi Shelton MD Transcribed by Maggy Ventura Authenticated and [facility]
== END 2025-03-19 23:59 | disposition home or self-care (01) ==
LOC: RAD 12:48
PROVIDERS: PCP Nurse Practitioner Family; Visit Provider Internal Medicine Pulmonary Disease
DX: Z12.2 Encounter for screening for malignant neoplasm of respiratory organs (principal); F17.210 Nicotine dependence, cigarettes, uncomplicated; R91.8 Other nonspecific abnormal finding of lung field; I25.10 Atherosclerotic heart disease of native coronary artery without angina pectoris
CPT/HCPCS: 71271

== ENCOUNTER 2025-04-03 06:44 | Day surgery (SDC) | payer MEDICARE, SELFPAY ==
[2025-03-29 14:22] VITALS: BMI 40.4
[2025-04-03] VITALS (7 sets, daily range): BP systolic 121–150; BP diastolic 66–86; PULSE 67–74; RESP 16–18; TEMP 36.2–36.4; O2SAT 94–97; BMI 89.0
[2025-04-03] MEDS: CYCLOPENTOLATE 2% OPHTH SOLN 2ML BOTTLE OP ×3 (07:10→07:20)
[2025-04-03] MEDS: PHENYLEPHRINE 2.5% OPHTH SOLN 2ML OP ×3 (07:10→07:20)
[2025-04-03] MEDS: TETRACAINE 0.5% OPTH SOL 15ML OP ×3 (07:10→07:20)
[2025-04-03 08:36] LABS: POC Glucose,Bedside 109 gm/dL (70-110)
[2025-04-03] MEDS: TOBRAMYCIN/DEX OPTH SUSP 2.5ML OP (08:51)
[2025-04-03] MEDS: MIDAZOLAM 2MG/2ML VIAL 1 MG IV (08:51)
[2025-04-03] MEDS: TIMOLOL 0.5% OPTH SOLN 5ML OP (08:51)
[2025-04-03] MEDS: LIDOCAINE 1% PF 2ML VIAL 2 ML IJ (08:51)
--- NOTE | 2025-04-03 13:10 | P.PCN_ITS ---
[facility] Procedure Note Date: 04/03/25 Time: 13:10 Procedure Note:: Preoperative Diagnosis: Cataract combined NS Cortical Complex [Right] Eye Postop diagnosis: same Operation: Microscopic phacoemulsification with intraocular lens implant [Right] Eye Specimen: None Blood Loss: None The patient was examined in the office with a complaint of poor vision in the [right] eye. The patient reports that this interferes with ADLs such as reading, watching TV and/or driving or the vision is like looking through a foggy haze and is very troubling. The patient was examined and found to have a visually significant cataract with best corrected vision of [20/400] by refraction and/or glare testing. Treatment options, risks and benefits were explained and the patient elected to have cataract surgery in an attempt to improve their vision. The patient had the eye anesthetized with topical tetracaine, the eye ways prepped and draped in the usual fashion for cataract surgery. A paracentesis and a temporal keratotomy were made. 0.2cc of 1% lidocaine PF was placed into the anterior chamber. And aqueous/viscoelastic exchange was done and a 360 degree capsulorexis was performed. Through hydrodissection and delineation with BSS on a cannula was done. The lens nucleus was phecoemulsified with CDE of [4.62]. Residual cortical material was removed using automated I&A The capsular bag was deepened with viscoelastica and a PCIOL was placed in the capsular bag with good centration and stability. Residual viscoelastic was removed using automated I&A. The keratotomy incision was hydrated with BSS on a cannula. The wound were checked and found to be water tight. IOP was checked digitally and adjusted as needed so as not to be too high. 1 drop of timolol 0.5%, ofloxacin, prednisolone acetate and ketorolac was instilled and eye shield taped over the eye. The patient was taken to recovery in good condition and will be seen postoperatively.
== END 2025-04-03 09:20 | disposition home or self-care (01) ==
PROVIDERS: PCP Nurse Practitioner Family; Visit Provider Ophthalmology
DX: E11.36 Type 2 diabetes mellitus with diabetic cataract (principal); H25.811 Combined forms of age-related cataract, right eye; H02.836 Dermatochalasis of left eye, unspecified eyelid; H02.833 Dermatochalasis of right eye, unspecified eyelid; F41.9 Anxiety disorder, unspecified; F32.A Depression, unspecified; Z87.891 Personal history of nicotine dependence; Z88.6 Allergy status to analgesic agent; Z79.84 Long term (current) use of oral hypoglycemic drugs; Z88.5 Allergy status to narcotic agent; Z88.0 Allergy status to penicillin; Z79.899 Other long term (current) drug therapy
CPT/HCPCS: 66984; 82962; J2250; V2632